=== PATIENT | female | born 1940 | race Caucasian/White ===

== ENCOUNTER 2018-01-15 11:09 | Observation (INO) | payer MEDICARE ==
[2018-01-15] MEDS ORDERED: BABY ASPIRIN 81 MG CHEW PO ONE (11:20)
[2018-01-15] MEDS ORDERED: BABY ASPIRIN 81 MG CHEW ONE (11:28)
[2018-01-15] MEDS ORDERED: Sodium Chloride 0.9% 1000 ML 1,000 ML ONE (11:28)
[2018-01-15] MEDS ORDERED: Sodium Chloride 0.9% 1000 ML 1,000 ML IV SCH (11:30)
--- NOTE | 2018-01-15 11:31 | ERPHSYRPT ---
- History of Present Illness Time Seen by Provider: 01/15/18 11:22 Historian: patient Exam Limitations: no limitations Patient Subjective Stated Complaint: pt states she awole this morning feeling weak and having chest pain to center of chest and to back but states she has no pain now, Triage Nursing Assessment: chest clear, pt alert, resp easy, skin w/d/p.no edema noted Physician History: This is a 77-year-old white female who states she has been previously healthy other than spinal stenosis. She arrives with complaint of anterior chest pain described as dull radiating to her back symptoms since 7:00 this morning lasting 2 hours she had slight shortness of breath she has no nausea. She denies other complaints past medical history includes spinal stenosis. 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 Past surgical history includes hysterectomy. Social history patient denies tobacco alcohol or illicit drug use. Timing/Duration: today Activities at Onset: rest Quality: dullness Location: substernal Chest Pain Radiation: back Severity of Pain-Max: moderate Severity of Pain-Current: none Modifying Factors: Improves With: nothing Associated Symptoms: shortness of breath, No nausea, No vomiting, No palpitations, No heartburn, No abdominal pain, No cough, No hurts to breathe, No diaphoresis, No chills, No fever, No fatigue, No weakness, No swelling/lump in chest, No syncope, No rash, No headache, No dizziness, No edema, No back pain , No other Prior Chest Pain/Cardiac Workup: no prior chest pain Nitro Today/Relief: no nitro taken today Aspirin Treatment Today: 81 mg x 4, provided by ED Allergies/Adverse Reactions: No Known Drug Allergies Allergy (Unverified 01/15/18 11:22) Home Medications: No Reportable Medications [No Reported Medications] 01/15/18 [History] Hx Tetanus, Diphtheria Vaccination/Date Given: No Hx Influenza Vaccination/Date Given: Yes Hx Pneumococcal Vaccination/Date Given: Yes - Review of Systems Constitutional: No Fever, No Chills Eyes: No Symptoms Ears, Nose, & Throat: No Symptoms Respiratory: Dyspnea, No Cough Cardiac: Chest Pain Abdominal/Gastrointestinal: No Abdominal Pain, No Nausea, No Vomiting, No Diarrhea Genitourinary Symptoms: No Dysuria Musculoskeletal: No Back Pain, No Neck Pain Skin: No Rash Neurological: No Dizziness, No Focal Weakness, No Sensory Changes Psychological: No Symptoms Endocrine: No Symptoms All Other Systems: Reviewed and Negative - Past Medical History Pertinent Past Medical History: Yes ENT History: Other Cardiac History: Other Musculoskeletal History: Degenerative Disk Disease Other Medical History: heart mumer,bleeding behind the left eye years ago - Past Surgical History Past Surgical History: Yes Gastrointestinal: Appendectomy Female Surgical History: Hysterectomy - Social History Smoking Status: Never smoker Exposure to second hand smoke: No Drug Use: none Patient Lives Alone: No - Female History Hx Last Menstrual Period: post - Nursing Vital Signs Nursing Vital Signs: Initial Vital Signs Temperature 97.4 F 01/15/18 11:12 Pulse Rate 10 L 01/15/18 11:12 Respiratory Rate 18 01/15/18 11:12 Blood Pressure 150/80 01/15/18 11:12 O2 Sat by Pulse Oximetry 98 01/15/18 11:12 Pain Scale Pain Intensity 0 - Physical Exam General Appearance: no apparent distress, anxiety Eye Exam: PERRL/EOMI, eyes nml inspection Ears, Nose, Throat Exam: normal ENT inspection, moist mucous membranes Neck Exam: normal inspection, non-tender, supple, full range of motion Respiratory Exam: normal breath sounds, lungs clear, No respiratory distress Cardiovascular Exam: tachycardia, other (heart initially irregularily irregular) Gastrointestinal/Abdomen Exam: soft, No tenderness, No mass Back Exam: normal inspection, No CVA tenderness, No vertebral tenderness Extremity Exam: normal inspection, normal range of motion Neurologic Exam: alert, oriented x 3, cooperative, swage toolsetter II-XII nml as tested, normal mood/affect, sensation nml, No motor deficits Skin Exam: normal color, warm, dry SpO2 Interpretation: normal (98%) SpO2: 98 - Course Nursing assessment & vital signs reviewed: Yes EKG Interpreted by Me: RATE (132 bpm), A-fib, NORMAL AXIS, Other (EKG: atrial fibrillation rapid response , 132 bpm,, normal axis, no acute ST or T wave changes) - Radiology Exams Chest X-ray Interpretation: Discussed w/ radiologist (chest x-ray: Impression: Nonacute hyperinflated chest) Ordered Tests: Active Orders 24 hr Category Date Time Status Tractor Mechanic Helper STAT Care 01/15/18 11:21 Active EKG-ER Only STAT Care 01/15/18 11:20 Active EKG-ER Only STAT Care 01/15/18 11:22 Active IV Insertion STAT Care 01/15/18 11:20 Active CHEST 1 VIEW (PORTABLE) Stat Exams 01/15/18 11:21 Completed AMYLASE Stat Lab 01/15/18 11:22 Completed CBC W DIFF Stat Lab 01/15/18 11:22 Completed CMP Stat Lab 01/15/18 11:22 Completed D-DIMER QUANTITATION Stat Lab 01/15/18 11:22 Completed LIPASE Stat Lab 01/15/18 11:22 Completed PROTIME WITH INR Stat Lab 01/15/18 11:22 Completed PTT Stat Lab 01/15/18 11:22 Completed TROPONIN Q3H Lab 01/15/18 11:25 Completed TROPONIN Q3H Lab 01/15/18 14:30 Ordered TROPONIN Q3H Lab 01/15/18 17:30 Ordered TROPONIN Q3H Lab 01/15/18 20:30 Ordered TROPONIN Q3H Lab 01/15/18 23:30 Ordered Medication Summary Generic Name Dose Route Start Last Admin Trade Name Freq PRN Reason Stop Dose Admin Sodium Chloride 1,000 mls @ 100 mls/hr 01/15/18 11:30 01/15/18 11:30 Sodium Chloride 0.9% 1000 Ml IV 02/14/18 11:29 100 mls/hr .Q10H JOE Administration Discontinued Medications Generic Name Dose Route Start Last Admin Trade Name Freq PRN Reason Stop Dose Admin Aspirin 324 mg 01/15/18 11:20 01/15/18 11:30 Baby Aspirin 81 Mg Chew PO 01/15/18 11:21 324 mg STAT ONE Administration Aspirin Confirm 01/15/18 11:28 Baby Aspirin 81 Mg Chew Administered 01/15/18 11:29 Dose 324 mg .ROUTE .STK-MED ONE Lab/Rad Data: Laboratory Result Diagrams 01/15/18 11:22 01/15/18 11:22 Laboratory Results 01/15/18 01/15/18 01/15/18 Range/Units 11:25 11:22 11:22 WBC (4.0-10.5) K/mm3 RBC (4.1-5.4) M/mm3 Hgb (12.0-16.0) gm/dl Hct (35-47) % MCV (78-100) fl MCH (26-32) pg MCHC (32-36) g/dl RDW (11.5-14.0) % Plt Count (150-450) K/mm3 MPV (6-9.5) fl Gran % (36.0-66.0) % Eos # (Auto) (0-0.5) Absolute Lymphs (auto) (1.0-4.6) Absolute Monos (auto) (0.0-1.3) Lymphocytes % (24.0-44.0) % Monocytes % (0.0-12.0) % Eosinophils % (0.00-5.0) % Basophils % (0.0-0.4) % Absolute Granulocytes (1.4-6.9) Basophils # (0-0.4) PT 11.5 (9.95-12.35) SECONDS INR 0.99 (0.8-3.0) APTT 30.8 (25.3-37.0) SECONDS D-Dimer 876 H* (215-500) ng/mL Sodium 144 (137-145) mmol/L Potassium 4.1 (3.5-5.1) mmol/L Chloride 106 (98-107) mmol/L Carbon Dioxide 26 (22-30) mmol/L Anion Gap 15.6 H (5-15) MEQ/L BUN 12 (7-17) mg/dL Creatinine 0.73 (0.52-1.04) mg/dL Estimated GFR > 60.0 ML/MIN Glucose 129 H (74-106) mg/dL Calcium 10.3 H (8.4-10.2) mg/dL Total Bilirubin 0.90 (0.2-1.3) mg/dL AST 19 (14-36) U/L ALT 14 (0-35) U/L Alkaline Phosphatase 81 (38-126) U/L Troponin I < 0.012 (0.000-0.034) ng/mL Serum Total Protein 7.6 (6.3-8.2) g/dL Albumin 4.6 (3.5-5.0) g/dL Amylase 70 (30-110) U/L Lipase 110 (23-300) U/L 01/15/18 Range/Units 11:22 WBC 6.9 (4.0-10.5) K/mm3 RBC 4.74 (4.1-5.4) M/mm3 Hgb 13.9 (12.0-16.0) gm/dl Hct 41.3 (35-47) % MCV 87.1 (78-100) fl MCH 29.3 (26-32) pg MCHC 33.7 (32-36) g/dl RDW 13.2 (11.5-14.0) % Plt Count 205 (150-450) K/mm3 MPV 9.3 (6-9.5) fl Gran % 70.6 H (36.0-66.0) % Eos # (Auto) 0.16 (0-0.5) Absolute Lymphs (auto) 1.51 (1.0-4.6) Absolute Monos (auto) 0.35 (0.0-1.3) Lymphocytes % 21.9 L (24.0-44.0) % Monocytes % 5.1 (0.0-12.0) % Eosinophils % 2.3 (0.00-5.0) % Basophils % 0.1 (0.0-0.4) % Absolute Granulocytes 4.86 (1.4-6.9) Basophils # 0.01 (0-0.4) PT (9.95-12.35) SECONDS INR (0.8-3.0) APTT (25.3-37.0) SECONDS D-Dimer (215-500) ng/mL Sodium (137-145) mmol/L Potassium (3.5-5.1) mmol/L Chloride (98-107) mmol/L Carbon Dioxide (22-30) mmol/L Anion Gap (5-15) MEQ/L BUN (7-17) mg/dL Creatinine (0.52-1.04) mg/dL Estimated GFR ML/MIN Glucose (74-106) mg/dL Calcium (8.4-10.2) mg/dL Total Bilirubin (0.2-1.3) mg/dL AST (14-36) U/L ALT (0-35) U/L Alkaline Phosphatase (38-126) U/L Troponin I (0.000-0.034) ng/mL Serum Total Protein (6.3-8.2) g/dL Albumin (3.5-5.0) g/dL Amylase (30-110) U/L Lipase (23-300) U/L - Progress Progress: improved (course) Air Movement: fair Progress Note: 01/15/18 11:28 77-year-old white female arrives with complaint of anterior chest pain described as dull lasting 2 hours occurred at 7:00 this morning associated with shortness of breath he states that she woke up just not feeling well she has no nausea no vomiting. She arrives with atrial fibrillation 1 32 bpm normal axis no acute ST or T wave changes. She states she has no history of heart problems he has never had atrial fibrillation is never had an MT denies history of high blood pressure. At the end of the initial evaluation of the patient she spontaneously converted to sinus rhythm 82 bpm. Patient is ordered aspirin 324 mg by mouth she does have a history of a bleed in her left eye approximately 15 years ago she is not otherwise taking any anticoagulants patient appears to be somewhat anxious however is in no acute distress and denies any other than that which occurred at around 7:00 this morning and lasted 2 hours. Repeat EKG done at 01/15/2018 at 11:23 AM Normal sinus rhythm 82 bpm normal axis no acute ST or T wave changes are noted. Will go ahead and give patient normal saline 100 mL per hour will obtain CBC CMP troponin amylase lipase and chest x-ray. Anticipate discussion with patient's primary care physician 01/15/18 12:34 I discussed the case with Dr. Burch. Patient's patient's d-dimer is mildly elevated patient is not tachycardic at this time she she has a normal oxygen saturation patient's remainder of her labs are essentially normal troponin within normal limits chest x-ray no acute disease process noted EKG is back to normal sinus rhythm. Will plan to place patient on observation diagnosis new onset of atrial fibrillation. Chest pain. I have discussed further aspirin for this patient with Dr. Burch she would like to evaluate the patient herself and then determine whether she wants to continue this. 01/15/18 12:38 Patient did have a mild increased d-dimer 876. However she is not short of breath she has normal oxygen saturation at this time also with a normal heart rate. - Departure Time of Disposition: 12:36 Departure Disposition: Observation Clinical Impression: New onset atrial fibrillation Chest pain Qualifiers: Chest pain type: unspecified Qualified Code(s): R07.9 - Chest pain, unspecified Condition: Fair Critical Care Time: No Referrals: DELGADO BURCH [Primary Care Provider] -
[2018-01-15 11:32] LABS: BASOPHIL % 0.1 % (0.0-0.4); Basophil (Absolute #) 0.01 (0-0.4); Eosinophil % 2.3 % (0.00-5.0); Eosinophil (Absolute #) 0.16 (0-0.5); Granulocyte Absolute (ANC) 4.86 (1.4-6.9); Granulocytes % 70.6 % (36.0-66.0); Hematocrit 41.3 % (35-47); Hemoglobin 13.9 gm/dl (12.0-16.0); Lymphocyte (Absolute #) 1.51 (1.0-4.6); Lymphocytes % 21.9 % (24.0-44.0); Mean Cell Volume 87.1 fl (78-100); Mean Corpuscular Hemoglobin 29.3 pg (26-32); Mean Corpuscular Hgb Concent. 33.7 g/dl (32-36); Mean Platelet Volume 9.3 fl (6-9.5); Monocyte (Absolute #) 0.35 (0.0-1.3); Monocytes % 5.1 % (0.0-12.0); Platelet Count 205 K/mm3 (150-450); Red Blood Count 4.74 M/mm3 (4.1-5.4); Red Cell Distribution Width 13.2 % (11.5-14.0); White Blood Count 6.9 K/mm3 (4.0-10.5)
[2018-01-15 11:45] LABS: ALBUMIN 4.6 g/dL (3.5-5.0); ALKALINE PHOSPHATASE 81 U/L (38-126); AMYLASE 70 U/L (30-110); ANION GAP 15.6 MEQ/L (5-15); BLOOD UREA NITROGEN 12 mg/dL (7-17); CHLORIDE 106 mmol/L (98-107); Calcium 10.3 mg/dL (8.4-10.2); Carbon Dioxide 26 mmol/L (22-30); Creatinine 1 0.73 mg/dL (0.52-1.04); Glucose 129 mg/dL (74-106); LIPASE 110 U/L (23-300); Potassium 4.1 mmol/L (3.5-5.1); SGOT/AST 19 U/L (14-36); SGPT/ALT 14 U/L (0-35); SODIUM 144 mmol/L (137-145); Total Protein 7.6 g/dL (6.3-8.2)
[2018-01-15 11:47] LABS: INR 0.99 (0.8-3.0)
[2018-01-15 11:49] LABS: PTT 30.8 SECONDS (25.3-37.0)
--- NOTE | 2018-01-15 12:01 | XRAY ---
Indication: Chest pain. Comparison: None Portable chest hyperinflated and clear. Heart and mediastinal structures within normal limits. Bony thorax intact with mild osteopenia and minimal degenerative changes. Impression: Nonacute hyperinflated chest.
[2018-01-15] MEDS: Sodium Chloride 0.9% 1000 ML 1,000 ML IV SCH (14:01)
--- NOTE | 2018-01-15 17:50 | PCM.HP ---
History of Present Illness - Chief Complaint Chief Complaint: chest pain r/o History of Present Illness: is a 77 year old female pt of mine from [facility] who came to the ER today with weakness and chest pain. She was found to have afib with RVR and was admitted on telemetry for chest pain rule out NV. This morning when she awoke she had to lay back down due to weakness. Then she started having 3/10 substernal dull chest pressure radiating to the back, not accompanied by shortness of breath, nausea, or diaphoresis. This did not last long (pt unable to quantify how long). When she came to the ER, her HR was 134. When the ER doctor entered the exam room, the pt spontaneously converted to NSR and has been so ever since. Her d-dimer was elevated to 800 but her O2 saturation was 100% and she was not SOB with no CP so a CT chest was not done. Pt has no history of afib. In fact, her only medical history is significant for spinal stenosis (with R foot paresthesia) and an episode of bleeding into the eye several years ago (per pt, due to her extreme myopia and age). She does note that she has not been feeling well for the past 2-3 months. Currently she is feeling "fine." - Review of Systems Constitutional: Weakness Respiratory: Short Of Breath (for several months, daily, needs to take a deep breath at times. worse when lying down.) Cardiac: Chest Pain Musculoskeletal: Back Pain Neurological: Parasthesia All Other Systems: Reviewed and Negative Medications & Allergies Home Medications: Home Medication List No Reportable Medications [No Reported Medications] 01/15/18 [History Confirmed 01/15/18] Allergies/Adverse Reactions: Allergies Allergy/AdvReac Type Severity Reaction Status Date / Time No Known Drug Allergies Allergy Unverified 01/15/18 11:22 - Past Medical History Past Medical History: Yes Neurological History: No Pertinent History ENT History: Other Cardiac History: Other Respiratory History: No Pertinent History Endocrine Medical History: No Pertinent History Musculoskelatal History: Degenerative Disk Disease GI Medical History: No Pertinent History History: No Pertinent History Pyscho-Social History: No Pertinent History Reproductive Disorders: No Pertinent History Comment: heart murmur,bleeding behind the left eye years ago - Female History Hx Last Menstrual Period: post Are you now?: No - Past Surgical History Past Surgical History: Yes Neuro Surgical History: No Pertinent History Cardiac History: No Pertinent History Respiratory Surgery: No Pertinent History GI Surgical History: Appendectomy Genitourinary Surgical Hx: No Pertinent History Musculskeletal Surgical Hx: No Pertinent History Female Surgical History: Hysterectomy - Social History Smoking Status: Never smoker Exposure to second hand smoke: No Alcohol: None Drug Use: none - Physical Exam Vital Signs: Vital Signs - 24 hr Temp Pulse Pulse Resp BP Pulse Ox 01/15/18 16:00 97.7 F 78 20 136/68 98 01/15/18 13:29 97.8 F 82 20 138/66 99 01/15/18 13:23 97.8 F 82 20 138/66 99 01/15/18 12:51 66 16 152/79 98 01/15/18 12:38 98 01/15/18 11:20 134 H 18 97 01/15/18 11:12 97.4 F 76 10 L 18 150/80 98 General Appearance: no apparent distress, alert Neurologic Exam: oriented x 3, cooperative Eye Exam: eyes nml inspection Ears, Nose, Throat Exam: moist mucous membranes Neck Exam: normal inspection, non-tender, No lymphadenopathy Respiratory Exam: normal breath sounds, lungs clear, No crackles/rales, No rhonchi, No wheezing Cardiovascular Exam: regular rate/rhythm, normal heart sounds, No murmur Gastrointestinal/Abdomen Exam: soft, normal bowel sounds, No tenderness, No distention, No mass, No guarding, No rebound Back Exam: normal inspection, No rash Extremity Exam: normal inspection, No pedal edema, No swelling Skin Exam: normal color, warm, dry, No rash Results - Labs Lab/Micro Results: Lab Results-Last 24 Hours 01/15/18 01/15/18 01/15/18 Range/Units 11:22 11:22 11:22 WBC 6.9 (4.0-10.5) K/mm3 RBC 4.74 (4.1-5.4) M/mm3 Hgb 13.9 (12.0-16.0) gm/dl Hct 41.3 (35-47) % MCV 87.1 (78-100) fl MCH 29.3 (26-32) pg MCHC 33.7 (32-36) g/dl RDW 13.2 (11.5-14.0) % Plt Count 205 (150-450) K/mm3 MPV 9.3 (6-9.5) fl Gran % 70.6 H (36.0-66.0) % Eos # (Auto) 0.16 (0-0.5) Absolute Lymphs (auto) 1.51 (1.0-4.6) Absolute Monos (auto) 0.35 (0.0-1.3) Lymphocytes % 21.9 L (24.0-44.0) % Monocytes % 5.1 (0.0-12.0) % Eosinophils % 2.3 (0.00-5.0) % Basophils % 0.1 (0.0-0.4) % Absolute Granulocytes 4.86 (1.4-6.9) Basophils # 0.01 (0-0.4) PT 11.5 (9.95-12.35) SECONDS INR 0.99 (0.8-3.0) APTT 30.8 (25.3-37.0) SECONDS D-Dimer 876 H* (215-500) ng/mL Sodium 144 (137-145) mmol/L Potassium 4.1 (3.5-5.1) mmol/L Chloride 106 (98-107) mmol/L Carbon Dioxide 26 (22-30) mmol/L Anion Gap 15.6 H (5-15) MEQ/L BUN 12 (7-17) mg/dL Creatinine 0.73 (0.52-1.04) mg/dL Estimated GFR > 60.0 ML/MIN Glucose 129 H (74-106) mg/dL Calcium 10.3 H (8.4-10.2) mg/dL Total Bilirubin 0.90 (0.2-1.3) mg/dL AST 19 (14-36) U/L ALT 14 (0-35) U/L Alkaline Phosphatase 81 (38-126) U/L Troponin I (0.000-0.034) ng/mL Serum Total Protein 7.6 (6.3-8.2) g/dL Albumin 4.6 (3.5-5.0) g/dL Amylase 70 (30-110) U/L Lipase 110 (23-300) U/L 01/15/18 01/15/18 Range/Units 11:25 14:27 WBC (4.0-10.5) K/mm3 RBC (4.1-5.4) M/mm3 Hgb (12.0-16.0) gm/dl Hct (35-47) % MCV (78-100) fl MCH (26-32) pg MCHC (32-36) g/dl RDW (11.5-14.0) % Plt Count (150-450) K/mm3 MPV (6-9.5) fl Gran % (36.0-66.0) % Eos # (Auto) (0-0.5) Absolute Lymphs (auto) (1.0-4.6) Absolute Monos (auto) (0.0-1.3) Lymphocytes % (24.0-44.0) % Monocytes % (0.0-12.0) % Eosinophils % (0.00-5.0) % Basophils % (0.0-0.4) % Absolute Granulocytes (1.4-6.9) Basophils # (0-0.4) PT (9.95-12.35) SECONDS INR (0.8-3.0) APTT (25.3-37.0) SECONDS D-Dimer (215-500) ng/mL Sodium (137-145) mmol/L Potassium (3.5-5.1) mmol/L Chloride (98-107) mmol/L Carbon Dioxide (22-30) mmol/L Anion Gap (5-15) MEQ/L BUN (7-17) mg/dL Creatinine (0.52-1.04) mg/dL Estimated GFR ML/MIN Glucose (74-106) mg/dL Calcium (8.4-10.2) mg/dL Total Bilirubin (0.2-1.3) mg/dL AST (14-36) U/L ALT (0-35) U/L Alkaline Phosphatase (38-126) U/L Troponin I < 0.012 < 0.012 (0.000-0.034) ng/mL Serum Total Protein (6.3-8.2) g/dL Albumin (3.5-5.0) g/dL Amylase (30-110) U/L Lipase (23-300) U/L - Radiology Impressions Radiology Exams & Impressions: Radiology Procedures Category Date Time Status CHEST 1 VIEW (PORTABLE) Stat Exams 01/15/18 11:21 Completed Assessment/Plan (1) Chest pain Current Visit: Yes Status: Acute Qualifiers: Chest pain type: unspecified Qualified Code(s): R07.9 - Chest pain, unspecified Assessment & Plan: Troponins are negative x 2. Will complete set of troponins x5 per protocol. Code(s): R07.9 - CHEST PAIN, UNSPECIFIED (2) New onset atrial fibrillation Current Visit: Yes Status: Acute Assessment & Plan: Her [id number] score is 3, indicating the need for anticoagulation. Her HASBLED score is 1, indicating 1.02 bleeds/100 pt yrs. She did have a previous episode of bleeding into the eye, but it was not a major bleed requireing transfusion. I therefore recommended anticoagulation to her, likely with Selvin. I discussed the risk of stroke vs the risk of bleeding, along with my recommendation, with the patient. She would like to think about it. I gave her the name of the medicine under consideration in case she would like to do some research on her own. She would like to discuss this in office with me next week. I did let her know that not being anticoagulated could put her at risk for a stroke in the meantime; pt indicated that she understood that. She will need an echocardiogram next week. Code(s): I48.91 - UNSPECIFIED ATRIAL FIBRILLATION (3) Elevated d-dimer Current Visit: Yes Status: Acute Assessment & Plan: Although the d-dimer was elevated, her O2 sat has been great, her chest pain has resolved, and she has not been short of breath (aside from her once daily need to take in a big single breath that has been going on for several months). Thus, symptomatically she is not typical for a pulmonary embolus so I will not subject her to the IV contrast from a CTA. Code(s): R79.89 - OTHER SPECIFIED ABNORMAL FINDINGS OF BLOOD CHEMISTRY
[2018-01-16] MEDS: Sodium Chloride 0.9% 1000 ML 1,000 ML IV SCH
[2018-01-16 05:46] LABS: BASOPHIL % 0.2 % (0.0-0.4); Basophil (Absolute #) 0.01 (0-0.4); Eosinophil % 4.9 % (0.00-5.0); Eosinophil (Absolute #) 0.22 (0-0.5); Granulocyte Absolute (ANC) 2.27 (1.4-6.9); Granulocytes % 50.9 % (36.0-66.0); Hematocrit 34.7 % (35-47); Hemoglobin 11.6 gm/dl (12.0-16.0); Lymphocyte (Absolute #) 1.68 (1.0-4.6); Lymphocytes % 37.7 % (24.0-44.0); Mean Cell Volume 89.2 fl (78-100); Mean Corpuscular Hemoglobin 29.8 pg (26-32); Mean Corpuscular Hgb Concent. 33.4 g/dl (32-36); Mean Platelet Volume 9.4 fl (6-9.5); Monocyte (Absolute #) 0.28 (0.0-1.3); Monocytes % 6.3 % (0.0-12.0); Platelet Count 196 K/mm3 (150-450); Red Blood Count 3.89 M/mm3 (4.1-5.4); Red Cell Distribution Width 13.1 % (11.5-14.0); White Blood Count 4.5 K/mm3 (4.0-10.5)
[2018-01-16 06:03] LABS: ALBUMIN 3.6 g/dL (3.5-5.0); ALKALINE PHOSPHATASE 62 U/L (38-126); ANION GAP 9.2 MEQ/L (5-15); BLOOD UREA NITROGEN 11 mg/dL (7-17); CHLORIDE 108 mmol/L (98-107); Calcium 9.3 mg/dL (8.4-10.2); Carbon Dioxide 28 mmol/L (22-30); Creatinine 1 0.63 mg/dL (0.52-1.04); Glucose 93 mg/dL (74-106); Potassium 3.9 mmol/L (3.5-5.1); SGOT/AST 12 U/L (14-36); SGPT/ALT 8 U/L (0-35); SODIUM 142 mmol/L (137-145); Total Protein 6.2 g/dL (6.3-8.2)
[2018-01-16] MEDS ORDERED: Toprol-Xl 25MG Tablets PO SCH (10:00)
--- NOTE | 2018-01-16 11:04 | PCM.DCORD ---
- Discharge Discharge Date: 01/16/18 Disposition: Home, Self-Care Condition: Good Prescriptions: New Aspirin EC 325 mg [Ecotrin 325 MG] 325 mg PO DAILY #30 tablet.ec Instructions: Echocardiogram, Adult, Heart Healthy Diet, Atrial Fibrillation ( DC), Chest Pain (DC) Additional Instructions: Patient is to come to [facility] Radiology Dept on 01/22/18@ 8:00 a.m. for a 2-D Echo Follow up with: DELGADO LIPSCOMB [Primary Care Provider] - 1 Week (Call for appointment.) Forms: Discharge Instructions, Patient Portal Information
[2018-01-16 11:29] VITALS: BP 140/64; PULSE 58; O2SAT 96
--- NOTE | 2018-01-19 11:15 | DS ---
DISCHARGE DIAGNOSES: 1) PAROXYSMAL ATRIAL FIBRILLATION. 2) CHEST PAIN. DISCHARGE PHYSICAL EXAMINATION: VITALS: Temperature current 97.6F, temperature max 97.8F, heart rate 50, respiratory rate 17. Oxygen saturation 95% on room air. Blood pressure 117/60, weight 70.8 kg. GENERAL: The patient is walking around in her room in no acute distress. She has a cousin at her bedside. CVS: She has a regular rate and rhythm. No murmurs, gallops or rubs are appreciated. CHEST: Clear to auscultation bilaterally. No crackles or wheezes. ABDOMEN: Soft, nontender, nondistended with normal bowel sounds. EXTREMITIES: No clubbing, cyanosis or edema. SKIN: Warm, dry and intact. HOSPITAL COURSE: 1) PAROXYSMAL ATRIAL FIBRILLATION: She had an episode of atrial fibrillation in the emergency room that was documented. Dr. Burch, her primary care doctor, talked to her about anticoagulation yesterday. The patient opted to think about this and talk with Dr. Burch again as an outpatient. She was given aspirin yesterday so will plan to continue with aspirin daily. Dr. Burch has written for her to have metoprolol succinate but was not starting until this morning and that dose was never given as her heart rate was 50 and her blood pressure was the low end of normal so I have opted to not discharge her on the rate control and have her follow up with Dr. Burch. 2) CHEST PAIN: She ruled out for acute myocardial infarction with serial negative troponins. No events on telemetry. DISCHARGE MEDICATIONS: Aspirin 325 mg p.o. daily. FOLLOW UP: She is to follow up with Dr. Burch this coming week. It looks like Dr. Burch has also scheduled an echocardiogram as an outpatient.
== END 2018-01-16 12:14 | disposition home or self-care (01) ==
LOC: ED 11:09 → MED SURG 13:06
PROVIDERS: ADMIT Family Medicine; ATTEND Family Medicine
DX: R07.9 Chest pain, unspecified (principal); I48.91 Unspecified atrial fibrillation; R79.1 Abnormal coagulation profile; Z79.01 Long term (current) use of anticoagulants; Z79.899 Other long term (current) drug therapy; R79.89 Other specified abnormal findings of blood chemistry
CPT/HCPCS: 36000; 36415; 71045; 80053; 82150; 83690; 84484; 85025; 85379; 85610; 85730; 93005; 93041; 93268; 99285; A9270-GY; G0378

== ENCOUNTER 2019-02-14 09:54 | Day surgery (SDC) | payer MEDICARE ==
--- NOTE | 2019-02-14 08:41 | HP ---
DATE OF SURGERY: 02/14/2019 HISTORY OF PRESENT ILLNESS: The patient is an 78 year-old with 40 pound weight loss over the past four to five months and lack of appetite. History of polyp otherwise unremarkable. No other changes in bowel movements. Denies any current rectal bleeding. PAST MEDICAL HISTORY: Includes neuropathy, some obesity, history of osteoarthritis, some heart disease requiring a pacemaker. PAST SURGICAL HISTORY: Hysterectomy in the past. MEDICATIONS: She has been MiraLAX, Celestone, amoxicillin, metoprolol, aspirin. ALLERGIES: NKDA. FAMILY HISTORY: Diabetes. Parkinson's. SOCIAL HISTORY: No alcohol abuse. REVIEW OF SYSTEMS: Fourteen systems reviewed per admission assessment. No chest pain or palpitations other systems negative or noncontributory as above and per preadmission questionnaire. She does have history of pacemaker. PHYSICAL EXAMINATION: GENERAL: No acute distress. HEENT: Sclerae nonicteric. NECK: No JVD. CHEST: Equal excursion, nonlabored breathing. CVS: Regular rate and rhythm. ABDOMEN: Soft. No peritoneal signs. EXTREMITIES: Trace edema. NEURO: Alert, oriented, moving extremities grossly symmetrically. IMPRESSION: Weight loss of unclear etiology. She had prior colonoscopy in the past that did not show any obvious etiology. I feel she would benefit from upper endoscopy for further evaluation. General risk of bleeding or infection, risk of bowel injury or perforation possibly requiring open procedure, risk of missed or nondiagnosis or incomplete exam possibly requiring other studies or procedures. She understands and agrees to the planned procedure and will proceed with EGD with possible biopsy as an outpatient.
[~2019-02-14 09:54] MED LIST: Lactated Ringers 1,000 ML IV ONE
[2019-02-14] MEDS ORDERED: Lactated Ringers 1,000 ML IV SCH (10:00)
[2019-02-14] MEDS ORDERED: DIPRIVAN 200 MG/20 ML IV ONE (11:25)
[2019-02-14 12:53] LABS: BLOOD UREA NITROGEN 11 mg/dL (7-17)
[2019-02-14 12:59] VITALS: BP 130/58; PULSE 63
[2019-02-14 13:00] VITALS: O2SAT 100
--- NOTE | 2019-02-14 13:52 | OP ---
SURGERY DATE/TIME: 02/14/2019 1126 PREOPERATIVE DIAGNOSES: A patient with 40 pound weight loss unclear etiology. History of fairly unremarkable colonoscopy in the past year and in need for upper endoscopy for further evaluation given her weight loss and lack of appetite. POSTOPERATIVE DIAGNOSES: Some mild gastric erythema, evaluate for early gastritis. PROCEDURES: 1) EGD with cold biopsy of the small bowel to evaluate for celiac sprue. 2) Cold biopsy of the antrum to evaluate for Helicobacter pylori. 3) Cold biopsy distal esophagus to the gastroesophageal junction. 4) Random cold biopsies of esophagus to evaluate for eosinophilic esophagitis. SURGEON: Dr. William Haywood. FLAME CUTTER: Roger Xiong M.D. - Medical Student III. ANESTHESIA: MAC. ESTIMATED BLOOD LOSS: Minimal. INDICATIONS: As noted above. Risks and benefits explained in detail and not limited to and consent obtained. DESCRIPTION OF PROCEDURE AND FINDINGS: The patient is taken to the operating room. MAC anesthesia introduced. After official time out and no disagreement with planned procedure, bite block positioned. Video gastroscope easily passed down the esophagus through the patent pylorus to the junction of the second and third portion of the duodenum. Proximal duodenum was grossly unremarkable. No signs of any ulcers or masses. Cold biopsy taken to evaluate for celiac disease given her weight loss. The scope pulled back into the stomach. There was some mild gastric erythema. Whether this is a just normal variation versus early gastritis cold biopsy taken to evaluate for Helicobacter pylori. On retroflex the gastroesophageal junction snug against the scope. No signs of any large hiatal hernia. There are no signs of any ulcers, masses or other mucosal lesions in the stomach. The scope pulled back gastroesophageal junction noted about 39 cm. Z-line was fairly crisp. Given her symptom complaints however random cold biopsies taken at this margin for further evaluation. Good hemostasis noted. Otherwise in the remainder of the esophagus no obvious mucosal lesions but given her symptom complaints random cold biopsies were taken to evaluate for eosinophilic esophagitis in the esophagus. The patient tolerated the procedure well. There were no immediate complications. Findings discussed with the family out in the waiting area. As we had not found remarkable findings, will check a CT scan abdomen and pelvis for further evaluation to rule out other occult sources of her lack of appetite.
== END 2019-02-14 13:13 | disposition home or self-care (01) ==
LOC: SDC 09:54
PROVIDERS: ATTEND Surgery
DX: K29.50 Unspecified chronic gastritis without bleeding (principal); K21.0 Gastro-esophageal reflux disease with esophagitis; L53.9 Erythematous condition, unspecified; R63.4 Abnormal weight loss; R63.0 Anorexia; Z79.899 Other long term (current) drug therapy
CPT/HCPCS: 36415; 82565; 84520; 88305; 88312; 99100; J2704

== ENCOUNTER 2021-04-13 16:41 | Emergency (ER) | payer MEDICARE ==
[2021-04-13] MEDS ORDERED: Sodium Chloride 0.9% 500 ML 500 ML IV ONE ×2 (17:01→17:03)
--- NOTE | 2021-04-13 17:07 | ERPHSYRPT ---
- History of Present Illness Time Seen by Provider: 04/13/21 16:59 Source: patient Exam Limitations: no limitations Physician History: 80 years old female and in the ER with chief complaint of generalized weakness fatigue and tiredness which is going on for almost 1 month. Patient reports she was on heart medications but did not get refill and is not taking anything for almost a month. Also reports having almost 25 pounds weight loss over the course of a month. Denies any chest pain palpitations or shortness of breath. No abdominal pain nausea vomiting or diarrhea reported. Denies any focal numbness or weakness but weakness all over. Denies any headache or blurry vision. Timing/Duration: week(s), constant, gradual onset, worse Severity: moderate Associated Symptoms: loss of appetite, weakness Allergies/Adverse Reactions: No Known Drug Allergies Allergy (Verified 04/13/21 17:13) Hx Tetanus, Diphtheria Vaccination/Date Given: No Hx Influenza Vaccination/Date Given: Yes Hx Pneumococcal Vaccination/Date Given: Yes - Review of Systems Constitutional: Fatigue, Weakness Eyes: No Symptoms Ears, Nose, & Throat: No Symptoms Respiratory: No Symptoms Cardiac: No Symptoms Abdominal/Gastrointestinal: No Symptoms Genitourinary Symptoms: No Symptoms Musculoskeletal: Arthralgias Skin: No Symptoms Neurological: No Symptoms Psychological: No Symptoms Endocrine: No Symptoms Hematologic/Lymphatic: No Symptoms Immunological/Allergic: No Symptoms - Past Medical History Pertinent Past Medical History: Yes Neurological History: No Pertinent History ENT History: Other Cardiac History: Other Respiratory History: No Pertinent History Endocrine Medical History: No Pertinent History Musculoskeletal History: Degenerative Disk Disease GI Medical History: No Pertinent History History: No Pertinent History Psycho-Social History: No Pertinent History Female Reproductive Disorders: No Pertinent History Other Medical History: heart murmur,bleeding behind the left eye years ago - Past Surgical History Past Surgical History: Yes Neuro Surgical History: No Pertinent History Cardiac: Pacemaker Respiratory: No Pertinent History Gastrointestinal: Appendectomy Genitourinary: No Pertinent History Musculoskeletal: No Pertinent History Female Surgical History: Hysterectomy - Social History Smoking Status: Never smoker Exposure to second hand smoke: No Drug Use: none Patient Lives Alone: No - Nursing Vital Signs Nursing Vital Signs: Initial Vital Signs Temperature 98.4 F 04/13/21 16:56 Pulse Rate 77 04/13/21 16:56 Respiratory Rate 18 04/13/21 16:56 Blood Pressure 165/82 04/13/21 16:56 O2 Sat by Pulse Oximetry 98 04/13/21 16:56 Pain Scale Pain Intensity 0 - Physical Exam General Appearance: no apparent distress, alert Eye Exam: PERRL/EOMI, eyes nml inspection Ears, Nose, Throat Exam: normal ENT inspection, pharynx normal Neck Exam: normal inspection, supple, full range of motion Respiratory Exam: normal breath sounds, lungs clear Cardiovascular Exam: regular rate/rhythm, normal heart sounds Gastrointestinal/Abdomen Exam: soft, normal bowel sounds, No tenderness Extremity Exam: normal inspection, normal range of motion Neurologic Exam: alert, oriented x 3, cooperative, emergency department rn II-XII nml as tested, normal mood/affect, nml cerebellar function Skin Exam: normal color SpO2 Interpretation: normal SpO2: 97 O2 Delivery: Room Air - Course EKG Interpreted by Me: RATE (71), Sinus Rhythm, NORMAL AXIS, NORMAL INTERVALS, Non-specific ST Changes Ordered Tests: Active Orders 24 hr Category Date Time Status IV Insertion STAT Care 04/13/21 17:06 Active CHEST 1 VIEW (PORTABLE) Stat Exams 04/13/21 17:01 Taken CBC W DIFF Stat Lab 04/13/21 17:16 Completed CMP Stat Lab 04/13/21 17:16 Completed Lactic Acid Stat Lab 04/13/21 17:05 Completed MAGNESIUM Stat Lab 04/13/21 17:16 Completed TSH [TSH, 3RD Generation] Stat Lab 04/13/21 17:16 Completed UA W/RFX UR CULTURE Stat Lab 04/13/21 18:40 Completed Medication Summary Discontinued Medications Generic Name Dose Route Start Last Admin Trade Name Ben PRN Reason Stop Dose Admin Sodium Chloride 500 mls @ 500 mls/hr 04/13/21 17:01 04/13/21 18:05 Sodium Chloride 0.9% 500 Ml IV 04/13/21 18:00 Infused .Q1H ONE Infusion Sodium Chloride Confirm 04/13/21 17:03 Sodium Chloride 0.9% 500 Ml Administered 04/13/21 17:04 Dose 500 mls @ ud IV .STK-MED ONE Lab/Rad Data: Laboratory Result Diagrams 04/13/21 17:16 04/13/21 17:16 Laboratory Results 04/13/21 04/13/21 04/13/21 Range/Units 18:40 17:16 17:16 WBC (4.0-10.5) K/mm3 RBC (4.1-5.4) M/mm3 Hgb (12.0-16.0) gm/dl Hct (35-47) % MCV (78-100) fl MCH (26-32) pg MCHC (32-36) g/dl RDW (11.5-14.0) % Plt Count (150-450) K/mm3 MPV (7.5-11.0) fl Gran % (36.0-66.0) % Eos # (Auto) (0-0.5) Absolute Lymphs (auto) (1.0-4.6) Absolute Monos (auto) (0.0-1.3) Lymphocytes % (24.0-44.0) % Monocytes % (0.0-12.0) % Eosinophils % (0.00-5.0) % Basophils % (0.0-0.4) % Absolute Granulocytes (1.4-6.9) Basophils # (0-0.4) Sodium 138 (137-145) mmol/L Potassium 4.3 (3.5-5.1) mmol/L Chloride 102 (98-107) mmol/L Carbon Dioxide 27 (22-30) mmol/L Anion Gap 13.6 (5-15) MEQ/L BUN 17 (7-17) mg/dL Creatinine 0.74 (0.52-1.04) mg/dL Estimated GFR > 60.0 ML/MIN Glucose 124 H (74-106) mg/dL Lactic Acid (0.4-2.0) Calcium 11.1 H (8.4-10.2) mg/dL Magnesium 2.3 (1.6-2.3) mg/dL Total Bilirubin 1.10 (0.2-1.3) mg/dL AST 26 (14-36) U/L ALT 16 (0-35) U/L Alkaline Phosphatase 87 (38-126) U/L Serum Total Protein 7.8 (6.3-8.2) g/dL Albumin 4.8 (3.5-5.0) g/dL TSH 3rd Generation 1.940 (0.47-4.68) mIU/L Urine Color YELLOW (YELLOW) Urine Appearance CLEAR (CLEAR) Urine pH 7.0 (5-6) Ur Specific [place] 1.009 (1.005-1.025) Urine Protein NEGATIVE (Negative) Urine Ketones TRACE (NEGATIVE) Urine Blood NEGATIVE (0-5) Brian/ul Urine Nitrite NEGATIVE (NEGATIVE) Urine Bilirubin NEGATIVE (NEGATIVE) Urine Urobilinogen NEGATIVE (0-1) mg/dL Ur Leukocyte Esterase NEGATIVE (NEGATIVE) Urine WBC (Auto) 0-2 (0-5) /HPF Urine RBC (Auto) NONE (0-2) /HPF U Hyaline Cast (Auto) 0-2 (0-2) /LPF U Epithel Cells (Auto) NONE (FEW) /HPF Urine Bacteria (Auto) NONE (NEGATIVE) /HPF Urine Mucus (Auto) SLIGHT (NEGATIVE) /HPF Urine Culture Reflexed NO (NO) Urine Glucose NEGATIVE (NEGATIVE) mg/dL 04/13/21 04/13/21 Range/Units 17:16 17:05 WBC 7.7 (4.0-10.5) K/mm3 RBC 5.02 (4.1-5.4) M/mm3 Hgb 14.7 (12.0-16.0) gm/dl Hct 44.5 (35-47) % MCV 88.6 (78-100) fl MCH 29.3 (26-32) pg MCHC 33.0 (32-36) g/dl RDW 12.9 (11.5-14.0) % Plt Count 284 (150-450) K/mm3 MPV 9.1 (7.5-11.0) fl Gran % 71.0 H (36.0-66.0) % Eos # (Auto) 0.11 (0-0.5) Absolute Lymphs (auto) 1.58 (1.0-4.6) Absolute Monos (auto) 0.53 (0.0-1.3) Lymphocytes % 20.6 L (24.0-44.0) % Monocytes % 6.9 (0.0-12.0) % Eosinophils % 1.4 (0.00-5.0) % Basophils % 0.1 (0.0-0.4) % Absolute Granulocytes 5.43 (1.4-6.9) Basophils # 0.01 (0-0.4) Sodium (137-145) mmol/L Potassium (3.5-5.1) mmol/L Chloride (98-107) mmol/L Carbon Dioxide (22-30) mmol/L Anion Gap (5-15) MEQ/L BUN (7-17) mg/dL Creatinine (0.52-1.04) mg/dL Estimated GFR ML/MIN Glucose (74-106) mg/dL Lactic Acid 1.2 (0.4-2.0) Calcium (8.4-10.2) mg/dL Magnesium (1.6-2.3) mg/dL Total Bilirubin (0.2-1.3) mg/dL AST (14-36) U/L ALT (0-35) U/L Alkaline Phosphatase (38-126) U/L Serum Total Protein (6.3-8.2) g/dL Albumin (3.5-5.0) g/dL TSH 3rd Generation (0.47-4.68) mIU/L Urine Color (YELLOW) Urine Appearance (CLEAR) Urine pH (5-6) Ur Specific [place] (1.005-1.025) Urine Protein (Negative) Urine Ketones (NEGATIVE) Urine Blood (0-5) Brian/ul Urine Nitrite (NEGATIVE) Urine Bilirubin (NEGATIVE) Urine Urobilinogen (0-1) mg/dL Ur Leukocyte Esterase (NEGATIVE) Urine WBC (Auto) (0-5) /HPF Urine RBC (Auto) (0-2) /HPF U Hyaline Cast (Auto) (0-2) /LPF U Epithel Cells (Auto) (FEW) /HPF Urine Bacteria (Auto) (NEGATIVE) /HPF Urine Mucus (Auto) (NEGATIVE) /HPF Urine Culture Reflexed (NO) Urine Glucose (NEGATIVE) mg/dL - Progress Progress: improved Progress Note: 04/13/21 19:15 80 years old is evaluated for generalized weakness fatigue and tiredness. Nonfocal neuro exam. Broad work-up is done which is grossly unremarkable except for some elevated potassium which could be secondary to dehydration versus abnormal PTH which can cause symptoms of generalized weakness and fatigue as well.. I have given her IV fluids, on reevaluation feeling better. Patient has not been taking her routine medications for almost a month and does not remember exactly what she takes. She is counseled about medication compliance and she would get medication filled tomorrow. Counseled about hydration, discussed signs symptoms of worsening needing return to ER which he seems understanding. Stable for discharge. Counseled pt/family regarding: lab results, diagnosis, need for follow-up, rad results - Departure Departure Disposition: Home Clinical Impression: Generalized weakness, Hypercalcemia, Noncompliance with medication regimen Condition: Stable Critical Care Time: No Referrals: DELGADO CARUSO [Primary Care Provider] - (Call in 2 days for reevaluation.) Instructions: Hypercalcemia (DC), Generalized Weakness (DC) Additional Instructions: Drink plenty of fluids. Restart taking your medications as recommended by your primary care and excel specialist. Follow-up with primary care for reevaluation early next week. Return to ER for worsening symptoms of generalized weakness fatigue or tiredness.
[2021-04-13 17:20] LABS: Absolute Neutrophil Ct (ANC) 5.43 (1.4-6.9); BASOPHIL % 0.1 % (0.0-0.4); Basophil (Absolute #) 0.01 (0-0.4); Eosinophil % 1.4 % (0.00-5.0); Eosinophil (Absolute #) 0.11 (0-0.5); Hematocrit 44.5 % (35-47); Hemoglobin 14.7 gm/dl (12.0-16.0); Lymphocyte (Absolute #) 1.58 (1.0-4.6); Lymphocytes % 20.6 % (24.0-44.0); Mean Cell Volume 88.6 fl (78-100); Mean Corpuscular Hemoglobin 29.3 pg (26-32); Mean Platelet Volume 9.1 fl (7.5-11.0); Monocyte (Absolute #) 0.53 (0.0-1.3); Monocytes % 6.9 % (0.0-12.0); Platelet Count 284 K/mm3 (150-450); Red Blood Count 5.02 M/mm3 (4.1-5.4); Red Cell Distribution Width 12.9 % (11.5-14.0); White Blood Count 7.7 K/mm3 (4.0-10.5)
[2021-04-13 17:30] LABS: ALBUMIN 4.8 g/dL (3.5-5.0); ALKALINE PHOSPHATASE 87 U/L (38-126); ANION GAP 13.6 MEQ/L (5-15); BLOOD UREA NITROGEN 17 mg/dL (7-17); CHLORIDE 102 mmol/L (98-107); Calcium 11.1 mg/dL (8.4-10.2); Carbon Dioxide 27 mmol/L (22-30); Creatinine 1 0.74 mg/dL (0.52-1.04); EST GLOMERULAR FILTRATION RATE > 60.0 ML/MIN; Glucose 124 mg/dL (74-106); MAGNESIUM 2.3 mg/dL (1.6-2.3); Potassium 4.3 mmol/L (3.5-5.1); SGOT/AST 26 U/L (14-36); SGPT/ALT 16 U/L (0-35); SODIUM 138 mmol/L (137-145); Total Protein 7.8 g/dL (6.3-8.2)
[2021-04-13 18:50] LABS: Appearance CLEAR (CLEAR); Bilirubin NEGATIVE (NEGATIVE); Blood NEGATIVE Ery/ul (0-5); Glucose NEGATIVE (NEGATIVE); Hyaline Casts 0-2 /LPF (0-2); Ketones TRACE (NEGATIVE); Leukocyte Esterase NEGATIVE (NEGATIVE); Mucus SLIGHT /HPF (NEGATIVE); Nitrite NEGATIVE (NEGATIVE); Protein,Urine Dip NEGATIVE (Negative); Specific Gravity 1.009 (1.005-1.025); Urobilinogen NEGATIVE mg/dL (0-1); WBC 0-2 /HPF (0-5)
[2021-04-13 19:11] VITALS: BP 157/79; PULSE 64
[2021-04-13 19:18] VITALS: O2SAT 97
--- NOTE | 2021-04-13 22:21 | XRAY ---
Indication: General weakness. Comparison: September 09, 2018. Portable chest remains hyperinflated and clear. Heart not enlarged with new left dual-lead pacemaker. Bony thorax intact again with mild osteopenia and degenerative changes. Impression: Continued nonacute hyperinflated chest with chronic features.
== END 2021-04-13 19:29 | disposition home or self-care (01) ==
LOC: ED 16:41
DX: R53.1 Weakness (principal); E83.52 Hypercalcemia; Z91.14 Patient's other noncompliance with medication regimen
CPT/HCPCS: 36000; 36415; 71045; 80053; 81001; 83605; 83735; 84443; 85025; 96360; 99284

== ENCOUNTER 2021-09-07 21:48 | Emergency (ER) | payer MEDICARE ==
[2021-09-07] MEDS ORDERED: Sodium Chloride 0.9% 1000 ML 1,000 ML IV STA (22:30)
[2021-09-07 22:32] VITALS: O2SAT 98
--- NOTE | 2021-09-07 22:45 | ERPHSYRPT ---
- History of Present Illness Time Seen by Provider: 09/07/21 22:10 Source: patient Exam Limitations: no limitations Patient Subjective Stated Complaint: per pt's family, pt has been having hallucinations. states she called them and Triage Nursing Assessment: pt alert and oriented, answers questions approp. pt states she has been having hallucinations since she was diagnosed with parkinsons. states she usually knows when she is hallucinating. pupils equal and reactive. strength equal bilat. pt up with assist of 1, unsteady at times. skin warm and dry. Physician History: This is an 81-year-old white female patient of Dr. Justen Martinez who presents to the emergency department by her family. The patient has significant Parkinson's disease and she has had intermittent episodes of hallucinations as you can see in Parkinson's disease. However, recently it seems to the patient that it is becoming more frequent. According to the patient's [id number], they have not been told that the patient is experiencing hallucinations and they were very worried today because she was obviously hallucinating to them. She is seeing things that are not there. There are no new medications. She did not suffer head injury. Patient denies headache. She denies chest pain. She denies shortness of breath. She denies abdominal pain. There are no new medications. Timing/Duration: intermittent, worse Severity: mild Character of Deficits: none (To moderate) Deficits: no difficulties Baseline/Normal Cognition: alert oriented x 3 Current Cognition: alert oriented x 3 Baseline Gait: walks w/o assistance Associated Symptoms: denies symptoms Allergies/Adverse Reactions: No Known Drug Allergies Allergy (Verified 09/07/21 22:30) Home Medications: Carbidopa/Levodopa [Carbidopa-Levo ER 25-100 Tab] 1 each PO TID 09/07/21 [History] Isosorbide Mononitrate 30 mg [Imdur 30 MG] 30 mg PO DAILY 09/07/21 [History] Hx Tetanus, Diphtheria Vaccination/Date Given: No Hx Influenza Vaccination/Date Given: Yes Hx Pneumococcal Vaccination/Date Given: Yes Immunizations Up to Date: No Travel Risk - International Travel Have you traveled outside of the country in past 3 weeks: No - Coronavirus Screening Are you exhibiting any of the following symptoms?: No Close contact with a COVID-19 positive Pt in past 14-21 Days: No - Vaccine Status Have you recieved a Covid-19 vaccination: Yes Development Rep: Moderna - Vaccination Dates Date of 2cond Vaccination (if applicable): Aug 2020 Comment: booster done - Review of Systems Constitutional: No Symptoms Eyes: No Symptoms Ears, Nose, & Throat: No Symptoms Respiratory: No Symptoms Cardiac: No Symptoms Abdominal/Gastrointestinal: No Symptoms Genitourinary Symptoms: No Symptoms Musculoskeletal: No Symptoms Skin: No Symptoms Neurological: Other (Visual hallucinations and Parkinson's patient) Psychological: Hallucinations (Visual. Patient has Parkinson's disease) Endocrine: No Symptoms Hematologic/Lymphatic: No Symptoms Immunological/Allergic: No Symptoms All Other Systems: Reviewed and Negative - Past Medical History Pertinent Past Medical History: Yes Neurological History: Other ENT History: Other Cardiac History: Other Respiratory History: No Pertinent History Endocrine Medical History: No Pertinent History Musculoskeletal History: Degenerative Disk Disease GI Medical History: No Pertinent History History: No Pertinent History Psycho-Social History: No Pertinent History Female Reproductive Disorders: No Pertinent History Other Medical History: heart murmur,bleeding behind the left eye years ago, parkinsons, pacemaker - Past Surgical History Past Surgical History: Yes Neuro Surgical History: No Pertinent History Cardiac: Pacemaker Respiratory: No Pertinent History Gastrointestinal: Appendectomy Genitourinary: No Pertinent History Musculoskeletal: No Pertinent History Female Surgical History: Hysterectomy - Social History Smoking Status: Never smoker Exposure to second hand smoke: No Drug Use: none Patient Lives Alone: No - Nursing Vital Signs Nursing Vital Signs: Initial Vital Signs Temperature 98.5 F 09/07/21 22:03 Pulse Rate 74 09/07/21 22:03 Respiratory Rate 16 09/07/21 22:03 Blood Pressure 152/76 09/07/21 22:03 O2 Sat by Pulse Oximetry 98 09/07/21 22:03 Pain Scale Pain Intensity 0 - Teri Coma Scale Best Eye Response ([place]): (4) open spontaneously Best Verbal Response (Teri): (5) oriented Best Motor Response ([place]): (6) obeys commands [place] Total: 15 - Physical Exam General Appearance: no apparent distress, alert, anxiety Eye Exam: bilateral eye: normal inspection, PERRL, EOMI Ears, Nose, Throat Exam: normal ENT inspection, moist mucous membranes Neck Exam: normal inspection, non-tender, supple, full range of motion Respiratory: normal breath sounds, lungs clear, airway intact, No chest ten derness, No respiratory distress Cardiovascular: regular rate/rhythm, normal heart sounds, normal peripheral pulses Gastrointestinal: soft, normal bowel sounds, No tenderness Pelvic Exam: not done Rectal Exam: not done Back Exam: normal inspection, normal range of motion, No CVA tenderness, No vertebral tenderness Extremity Exam: normal inspection, normal range of motion, pelvis stable Mental Status: alert, oriented x 3, 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 Exam: normal hearing, normal speech, PERRL, tongue midline Coordination/Gait: normal finger to nose Motor/Sensory: no motor deficit, no sensory deficit, no pronator drift Skin Exam: normal color, warm, dry SpO2 Interpretation: normal SpO2: 98 O2 Delivery: Room Air - Course Nursing assessment & vital signs reviewed: Yes Ordered Tests: Active Orders 24 hr Category Date Time Status IV Insertion STAT Care 09/07/21 22:30 Active HEAD WITHOUT CONTRAST [CT] Stat Exams 09/07/21 22:31 Taken CBC W DIFF Stat Lab 09/07/21 22:44 Completed CMP Stat Lab 09/07/21 22:44 Completed UA W/RFX UR CULTURE Stat Lab 09/07/21 22:37 Completed Urine Triage Profile Stat Lab 09/07/21 22:37 Completed Medication Summary Generic Name Dose Route Start Last Admin Trade Name Freq PRN Reason Stop Dose Admin Sodium Chloride 1,000 mls @ 999 mls/hr 09/07/21 22:30 09/07/21 23:10 Sodium Chloride 0.9% 1000 Ml IV 09/07/21 23:30 999 mls/hr .Q1H1M STA Administration Discontinued Medications Generic Name Dose Route Start Last Admin Trade Name Freq PRN Reason Stop Dose Admin Sodium Chloride Confirm 09/07/21 23:07 Sodium Chloride 0.9% 1000 Ml Administered 09/07/21 23:08 Dose 1,000 mls @ ud .ROUTE .STK-MED ONE Lab/Rad Data: Laboratory Result Diagrams 09/07/21 22:44 09/07/21 22:44 Laboratory Results 09/07/21 09/07/21 09/07/21 Range/Units 22:44 22:44 22:37 WBC 7.5 (4.0-10.5) K/mm3 RBC 4.39 (4.1-5.4) M/mm3 Hgb 13.0 (12.0-16.0) gm/dl Hct 39.3 (35-47) % MCV 89.5 (78-100) fl MCH 29.6 (26-32) pg MCHC 33.1 (32-36) g/dl RDW 12.8 (11.5-14.0) % Plt Count 232 (150-450) K/mm3 MPV 9.1 (7.5-11.0) fl Gran % 73.5 H (36.0-66.0) % Eos # (Auto) 0.17 (0-0.5) Absolute Lymphs (auto) 1.20 (1.0-4.6) Absolute Monos (auto) 0.59 (0.0-1.3) Lymphocytes % 16.0 L (24.0-44.0) % Monocytes % 7.9 (0.0-12.0) % Eosinophils % 2.3 (0.00-5.0) % Basophils % 0.3 (0.0-0.4) % Absolute Granulocytes 5.50 (1.4-6.9) Basophils # 0.02 (0-0.4) Sodium 137 (137-145) mmol/L Potassium 4.1 (3.5-5.1) mmol/L Chloride 100 (98-107) mmol/L Carbon Dioxide 29 (22-30) mmol/L Anion Gap 12.7 (5-15) MEQ/L BUN 18 H (7-17) mg/dL Creatinine 0.70 (0.52-1.04) mg/dL Estimated GFR > 60.0 ML/MIN Glucose 115 H (74-106) mg/dL Calcium 10.9 H (8.4-10.2) mg/dL Total Bilirubin 1.20 (0.2-1.3) mg/dL AST 22 (14-36) U/L ALT 5 (0-35) U/L Alkaline Phosphatase 84 (38-126) U/L Serum Total Protein 7.2 (6.3-8.2) g/dL Albumin 4.4 (3.5-5.0) g/dL Urine Color (YELLOW) Urine Appearance (CLEAR) Urine pH (5-6) Ur Specific [place] (1.005-1.025) Urine Protein (Negative) Urine Ketones (NEGATIVE) Urine Blood (0-5) Brian/ul Urine Nitrite (NEGATIVE) Urine Bilirubin (NEGATIVE) Urine Urobilinogen (0-1) mg/dL Ur Leukocyte Esterase (NEGATIVE) Urine WBC (Auto) (0-5) /HPF Urine RBC (Auto) (0-2) /HPF U Epithel Cells (Auto) (FEW) /HPF Urine Bacteria (Auto) (NEGATIVE) /HPF Urine Culture Reflexed (NO) Urine Glucose (NEGATIVE) mg/dL Urine Opiates Level NEGATIVE (NEGATIVE) Ur Methadone NEGATIVE (NEGATIVE) Urine Barbiturates NEGATIVE (NEGATIVE) Ur Phencyclidine (PCP) NEGATIVE (NEGATIVE) Urine Amphetamine NEGATIVE (NEGATIVE) U Benzodiazepine Level NEGATIVE (NEGATIVE) Urine Cocaine NEGATIVE (NEGATIVE) Urine Marijuana (THC) NEGATIVE (NEGATIVE) 09/07/21 Range/Units 22:37 WBC (4.0-10.5) K/mm3 RBC (4.1-5.4) M/mm3 Hgb (12.0-16.0) gm/dl Hct (35-47) % MCV (78-100) fl MCH (26-32) pg MCHC (32-36) g/dl RDW (11.5-14.0) % Plt Count (150-450) K/mm3 MPV (7.5-11.0) fl Gran % (36.0-66.0) % Eos # (Auto) (0-0.5) Absolute Lymphs (auto) (1.0-4.6) Absolute Monos (auto) (0.0-1.3) Lymphocytes % (24.0-44.0) % Monocytes % (0.0-12.0) % Eosinophils % (0.00-5.0) % Basophils % (0.0-0.4) % Absolute Granulocytes (1.4-6.9) Basophils # (0-0.4) Sodium (137-145) mmol/L Potassium (3.5-5.1) mmol/L Chloride (98-107) mmol/L Carbon Dioxide (22-30) mmol/L Anion Gap (5-15) MEQ/L BUN (7-17) mg/dL Creatinine (0.52-1.04) mg/dL Estimated GFR ML/MIN Glucose (74-106) mg/dL Calcium (8.4-10.2) mg/dL Total Bilirubin (0.2-1.3) mg/dL AST (14-36) U/L ALT (0-35) U/L Alkaline Phosphatase (38-126) U/L Serum Total Protein (6.3-8.2) g/dL Albumin (3.5-5.0) g/dL Urine Color YELLOW (YELLOW) Urine Appearance CLEAR (CLEAR) Urine pH 6.0 (5-6) Ur Specific [place] 1.016 (1.005-1.025) Urine Protein NEGATIVE (Negative) Urine Ketones TRACE (NEGATIVE) Urine Blood NEGATIVE (0-5) Brian/ul Urine Nitrite NEGATIVE (NEGATIVE) Urine Bilirubin NEGATIVE (NEGATIVE) Urine Urobilinogen NEGATIVE (0-1) mg/dL Ur Leukocyte Esterase NEGATIVE (NEGATIVE) Urine WBC (Auto) 0-2 (0-5) /HPF Urine RBC (Auto) NONE (0-2) /HPF U Epithel Cells (Auto) NONE (FEW) /HPF Urine Bacteria (Auto) NONE SEEN (NEGATIVE) /HPF Urine Culture Reflexed NO (NO) Urine Glucose NEGATIVE (NEGATIVE) mg/dL Urine Opiates Level (NEGATIVE) Ur Methadone (NEGATIVE) Urine Barbiturates (NEGATIVE) Ur Phencyclidine (PCP) (NEGATIVE) Urine Amphetamine (NEGATIVE) U Benzodiazepine Level (NEGATIVE) Urine Cocaine (NEGATIVE) Urine Marijuana (THC) (NEGATIVE) - Progress Progress: improved Progress Note: 09/07/21 23:27 CAT scan of the head without contrast shows chronic changes and no evidence of any acute intracranial abnormality. Counseled pt/family regarding: lab results, diagnosis, need for follow-up, rad results - Departure Departure Disposition: Home Clinical Impression: Hallucination, visual, Parkinson disease, symptomatic Condition: Stable Critical Care Time: No Referrals: DELGADO CARUSO [Primary Care Provider] - Follow up/PCP as directed Additional Instructions: Plenty of fluids. Take your medication as prescribed. Follow-up with your primary prescribing physician and neurologist as an outpatient to discuss these hallucinations and social issues.
[2021-09-07 22:48] LABS: Basophil (Absolute #) 0.02 (0-0.4); Eosinophil % 2.3 % (0.00-5.0); Eosinophil (Absolute #) 0.17 (0-0.5); Hematocrit 39.3 % (35-47); Mean Cell Volume 89.5 fl (78-100); Mean Corpuscular Hemoglobin 29.6 pg (26-32); Mean Corpuscular Hgb Concent. 33.1 g/dl (32-36); Mean Platelet Volume 9.1 fl (7.5-11.0); Monocyte (Absolute #) 0.59 (0.0-1.3); Monocytes % 7.9 % (0.0-12.0); Neutrophil % 73.5 % (36.0-66.0); Platelet Count 232 K/mm3 (150-450); Red Blood Count 4.39 M/mm3 (4.1-5.4); Red Cell Distribution Width 12.8 % (11.5-14.0); White Blood Count 7.5 K/mm3 (4.0-10.5)
[2021-09-07 23:05] LABS: Appearance CLEAR (CLEAR); Bilirubin NEGATIVE (NEGATIVE); Blood NEGATIVE Ery/ul (0-5); Glucose NEGATIVE (NEGATIVE); Ketones TRACE (NEGATIVE); Leukocyte Esterase NEGATIVE (NEGATIVE); Nitrite NEGATIVE (NEGATIVE); Protein,Urine Dip NEGATIVE (Negative); Specific Gravity 1.016 (1.005-1.025); Urobilinogen NEGATIVE mg/dL (0-1); WBC 0-2 /HPF (0-5)
[2021-09-07 23:07] LABS: ALBUMIN 4.4 g/dL (3.5-5.0); ALKALINE PHOSPHATASE 84 U/L (38-126); ANION GAP 12.7 MEQ/L (5-15); BLOOD UREA NITROGEN 18 mg/dL (7-17); CHLORIDE 100 mmol/L (98-107); Calcium 10.9 mg/dL (8.4-10.2); Carbon Dioxide 29 mmol/L (22-30); EST GLOMERULAR FILTRATION RATE > 60.0 ML/MIN; Glucose 115 mg/dL (74-106); Potassium 4.1 mmol/L (3.5-5.1); SGOT/AST 22 U/L (14-36); SODIUM 137 mmol/L (137-145); Total Protein 7.2 g/dL (6.3-8.2)
[2021-09-07] MEDS ORDERED: Sodium Chloride 0.9% 1000 ML 1,000 ML ONE (23:07)
[2021-09-07 23:14] LABS: SGPT/ALT 5 U/L (0-35)
[2021-09-07 23:14] LABS: Bacteria NONE SEEN /HPF (NEGATIVE)
[2021-09-07 23:18] LABS: Amphetamine,Urine NEGATIVE (NEGATIVE); Barbiturate,Urine NEGATIVE (NEGATIVE); Benzodiazepine,Urine NEGATIVE (NEGATIVE); Cocaine,Urine NEGATIVE (NEGATIVE); Methadone,Urine NEGATIVE (NEGATIVE); Opiate,Urine NEGATIVE (NEGATIVE); PCP,Urine NEGATIVE (NEGATIVE); THC,Urine NEGATIVE (NEGATIVE)
[2021-09-08 00:17] VITALS: BP 145/74; PULSE 71
--- NOTE | 2021-09-08 08:38 | XRAY ---
Indication: Hallucinations. History of Parkinson's disease. Multiple contiguous axial images obtained through the head without contrast. Comparison: None Age-appropriate global atrophy and minimal periventricular degenerative micro-ischemia bilaterally. No acute intracranial hemorrhage, abnormal extra-axial fluid collection, or mass effect. Fourth ventricle is midline without hydrocephalus. [place]-white matter differentiation preserved. Bony calvarium intact with incidental hyperostosis frontalis interna. Visualized paranasal sinuses and mastoid air cells are clear. Impression: Nonacute senile brain. Comment: Preliminary interpretation made by [facility]. No critical discrepancy.
== END 2021-09-08 01:07 | disposition home or self-care (01) ==
LOC: ED 21:48
DX: R44.1 Visual hallucinations (principal); G20 Parkinson's disease; Z79.899 Other long term (current) drug therapy
CPT/HCPCS: 36000; 36415; 70450; 80053; 80307; 81001; 85025; 99284

== ENCOUNTER 2021-09-08 18:25 | Emergency (ER) | payer MEDICARE ==
--- NOTE | 2021-09-08 18:45 | ERPHSYRPT ---
- History of Present Illness Historian: patient, family Timing/Duration: today Abdominal Pain Onset Location: generalized abdomen Severity of Pain-Max: mild Severity of Pain-Current: mild Associated Symptoms: other (yrinary retention) Hx Tetanus, Diphtheria Vaccination/Date Given: No Hx Influenza Vaccination/Date Given: Yes Hx Pneumococcal Vaccination/Date Given: Yes <DENA REYES - Last Filed: 09/08/21 18:47> <DEBO FOREMAN - Last Filed: 09/08/21 21:07> - History of Present Illness Time Seen by Provider: 09/08/21 18:43 Physician History: Patient is 81-year-old female with significant past medical history of Parkinson's disease was in the emergency room last night with the same complaint of abdominal pain and unable to urinate. Patient underwent extensive investigation last night and when the catheter was placed in patient was able to void to colored urine. Patient urinalysis was unremarkable. Patient CT head was unremarkable. Patient other labs were unremarkable so patient was sent home. Since patient went home patient has not urinated at all and her abdomen started getting distended so she was brought into the emergency room. Patient also has not eaten anything and she is now hallucinating more and more. (DENA REYES) Allergies/Adverse Reactions: No Known Drug Allergies Allergy (Verified 09/08/21 18:44) Home Medications: Carbidopa/Levodopa [Carbidopa-Levo ER 25-100 Tab] 1 each PO TID 09/07/21 [History] Isosorbide Mononitrate 30 mg [Imdur 30 MG] 30 mg PO DAILY 09/07/21 [History] Travel Risk - Vaccine Status Have you recieved a Covid-19 vaccination: Yes Continuity Writer: Moderna - Vaccination Dates Date of 2cond Vaccination (if applicable): Aug 2020 Comment: booster done <DENA REYES - Last Filed: 09/08/21 18:47> - Review of Systems Constitutional: No Fever, No Chills Eyes: No Symptoms Ears, Nose, & Throat: No Symptoms Respiratory: No Cough, No Dyspnea Cardiac: No Chest Pain, No Edema, No Syncope Abdominal/Gastrointestinal: Abdominal Pain, Appetite Changes, No Nausea, No Vomiting, No Diarrhea Genitourinary Symptoms: Urinary Retention, No Dysuria Musculoskeletal: No Back Pain, No Neck Pain Skin: No Rash Neurological: No Dizziness, No Focal Weakness, No Sensory Changes Psychological: No Symptoms, Hallucinations Endocrine: No Symptoms All Other Systems: Reviewed and Negative <ERIC,DENA - Last Filed: 09/08/21 18:47> - Past Medical History Pertinent Past Medical History: Yes Neurological History: No Pertinent History ENT History: Other Cardiac History: Other Respiratory History: No Pertinent History Endocrine Medical History: No Pertinent History Musculoskeletal History: Degenerative Disk Disease GI Medical History: No Pertinent History History: No Pertinent History Psycho-Social History: No Pertinent History Female Reproductive Disorders: No Pertinent History Other Medical History: heart murmur,bleeding behind the left eye years ago - Past Surgical History Past Surgical History: Yes Neuro Surgical History: No Pertinent History Cardiac: Pacemaker Respiratory: No Pertinent History Gastrointestinal: Appendectomy Genitourinary: No Pertinent History Musculoskeletal: No Pertinent History Female Surgical History: Hysterectomy - Social History Smoking Status: Never smoker Exposure to second hand smoke: No Drug Use: none Patient Lives Alone: No <ERIC,DENA - Last Filed: 09/08/21 18:47> - Physical Exam General Appearance: no apparent distress, alert Eye Exam: PERRL/EOMI, eyes nml inspection Ears, Nose, Throat Exam: normal ENT inspection, pharynx normal, moist mucous membranes Neck Exam: normal inspection, non-tender, supple, full range of motion Respiratory Exam: normal breath sounds, lungs clear, No respiratory distress Cardiovascular Exam: regular rate/rhythm, normal heart sounds Gastrointestinal/Abdomen Exam: soft, normal bowel sounds, distention, No tenderness, No mass Pelvic Exam: not done Back Exam: normal inspection, normal range of motion, No CVA tenderness, No vertebral tenderness Extremity Exam: normal inspection, normal range of motion, pelvis stable Neurologic Exam: alert, oriented x 3, cooperative, normal mood/affect, nml cerebellar function, sensation nml, No motor deficits Skin Exam: normal color, warm, dry <ERIC,DENA - Last Filed: 09/08/21 18:47> - Nursing Vital Signs Nursing Vital Signs: Initial Vital Signs Temperature 98 F 09/08/21 18:26 Pulse Rate 69 09/08/21 18:26 Respiratory Rate 18 09/08/21 18:26 Blood Pressure 120/66 09/08/21 18:26 O2 Sat by Pulse Oximetry 97 02/20/22 18:26 Pain Scale Pain Intensity 0 - Course Nursing assessment & vital signs reviewed: Yes <ERIC,DENA - Last Filed: 09/08/21 18:47> Ordered Tests: Active Orders 24 hr Category Date Time Status Catheter-Elma Hillman STAT Care 09/08/21 18:41 Active ABDOMEN AND PELVIS W/0 CONTRAS [CT] Stat Exams 09/08/21 19:03 Taken CULTURE,URINE Stat Lab 09/08/21 19:47 Received UA W/RFX UR CULTURE Stat Lab 09/08/21 19:47 Completed Medication Summary Discontinued Medications Generic Name Dose Route Start Last Admin Trade Name Freq PRN Reason Stop Dose Admin Ondansetron HCl 4 mg 09/08/21 19:03 09/08/21 19:26 Zofran 4 Mg/Udtablet Orally Disintegrating PO 09/08/21 19:04 4 mg STAT ONE Administration Ondansetron HCl Confirm 09/08/21 19:16 Zofran 4 Mg/Udtablet Orally Disintegrating Administered 09/08/21 19:17 Dose 4 mg .ROUTE .STK-MED ONE Lab/Rad Data: Laboratory Results 09/08/21 Range/Units 19:47 Urine Color YELLOW (YELLOW) Urine Appearance CLEAR (CLEAR) Urine pH 5.0 (5-6) Ur Specific [place] 1.013 (1.005-1.025) Urine Protein NEGATIVE (Negative) Urine Ketones TRACE (NEGATIVE) Urine Blood NEGATIVE (0-5) Brian/ul Urine Nitrite NEGATIVE (NEGATIVE) Urine Bilirubin NEGATIVE (NEGATIVE) Urine Urobilinogen NEGATIVE (0-1) mg/dL Ur Leukocyte Esterase NEGATIVE (NEGATIVE) Urine WBC (Auto) 3-5 (0-5) /HPF Urine RBC (Auto) NONE (0-2) /HPF U Epithel Cells (Auto) NONE (FEW) /HPF Urine Bacteria (Auto) NONE SEEN (NEGATIVE) /HPF Calcium Oxalate Crystal 0-2 (NEGATIVE) /HPF Urine Mucus (Auto) SLIGHT (NEGATIVE) /HPF Urine Culture Reflexed NO (NO) Urine Glucose NEGATIVE (NEGATIVE) mg/dL - Progress Progress: improved Counseled pt/family regarding: lab results, diagnosis, need for follow-up, rad results <DEBO FOREMAN - Last Filed: 09/08/21 21:07> - Progress Progress Note: 09/08/21 19:05 I evaluated this patient last night in the emergency department. She had refused to go home with a Hillman catheter in place and returns with urinary ret ention. We will repeat place the Hillman catheter and she will go home with the Hillman catheter in place. She also complains of left-sided abdominal pain and therefore we will perform a CAT scan of the abdomen pelvis and check a urinalysis. 09/08/21 19:37 CAT scan of the abdomen pelvis without contrast final report is pending. However, it is obvious that the patient has rectal stool. We will perform a fleets enema. 09/08/21 21:06 CAT scan of the abdomen and pelvis final report from radiology shows picture consistent with stool in the rectosigmoid colon. There are no emergent findings noted. (DEBO FOREMAN) <DENA REYES - Last Filed: 09/08/21 18:47> - Departure Departure Disposition: Home Critical Care Time: No <DEBO FOREMAN - Last Filed: 09/08/21 21:07> - Departure Clinical Impression: Urinary retention, Constipation Condition: Stable Referrals: DELGADO CARUSO [Primary Care Provider] - Follow up/PCP as directed Additional Instructions: Drink plenty of fluids. Follow-up with urologist for further evaluation and management. Call your primary care physician tomorrow to discuss bowel hygiene and social issues including the possibility of assisted placement. Call your neurologist tomorrow for further evaluation and management. Use [id number] MiraLAX as instructed on the bottle. In addition, may drink rapidly a bottle of magnesium citrate tomorrow morning and then 1 hour later give yourself an [id number] fleets enema.
[2021-09-08] MEDS ORDERED: ZOFRAN ODT 4 MG PO ONE (19:03)
[2021-09-08] MEDS ORDERED: ZOFRAN ODT 4 MG ONE (19:16)
[2021-09-08 20:33] LABS: Appearance CLEAR (CLEAR); Bacteria NONE SEEN /HPF (NEGATIVE); Bilirubin NEGATIVE (NEGATIVE); Blood NEGATIVE Ery/ul (0-5); Calcium Oxalate Crystals 0-2 /HPF (NEGATIVE); Glucose NEGATIVE (NEGATIVE); Ketones TRACE (NEGATIVE); Leukocyte Esterase NEGATIVE (NEGATIVE); Mucus SLIGHT /HPF (NEGATIVE); Nitrite NEGATIVE (NEGATIVE); Protein,Urine Dip NEGATIVE (Negative); Specific Gravity 1.013 (1.005-1.025); Urobilinogen NEGATIVE mg/dL (0-1)
[2021-09-09 00:16] VITALS: BP 135/65; PULSE 64; O2SAT 99
--- NOTE | 2021-09-09 08:50 | XRAY ---
Indication: Left abdomen/pelvic pain. Constipation 1 week. Multiple contiguous axial images obtained through the abdomen and pelvis without contrast. Comparison: March 03, 2019. Lung bases remain clear. Heart remains enlarged again with small pericardial effusion and pacer leads. Images through the abdomen degraded by respiration artifact. Noncontrasted stomach and bowel loops are nonobstructed. Increasing moderate diffuse scattered colonic fecal debris with new moderate rectal impaction. Again reported appendectomy and hysterectomy. Gallbladder not seen presumed contracted. No free fluid/air. Previous renal cysts not seen on today's noncontrast exam. Remaining liver, pancreas, spleen, adrenal glands, kidneys, ureters, and bladder are unremarkable for noncontrast exam. Stable moderate scattered aortoiliac calcifications without AAA. Osseous structures intact again with osteopenia, mild/moderate multilevel degenerative spondylosis, moderate/advanced bilateral hip degenerative arthropathy, and small left acetabulum cyst. Impression: 1. Respiration artifact. 2. Worsening fecal stasis with new rectal impaction. 3. Again cardiomegaly with pericardial effusion and chronic bony findings. Comment: Preliminary interpretation made by [facility]. No critical discrepancy.
== END 2021-09-08 23:41 | disposition home or self-care (01) ==
LOC: ED 18:25
DX: R33.9 Retention of urine, unspecified (principal); K59.00 Constipation, unspecified; R10.12 Left upper quadrant pain; R10.32 Left lower quadrant pain; G20 Parkinson's disease; Z79.899 Other long term (current) drug therapy; R44.3 Hallucinations, unspecified
CPT/HCPCS: 51702; 74176; 81001; 87086; 99284; Q0162

== ENCOUNTER 2021-09-09 12:21 | Observation (INO) | payer MEDICARE ==
[2021-09-09 13:28] LABS: INFLUENZA A NEGATIVE (NEGATIVE); INFLUENZA B NEGATIVE (NEGATIVE); RESPIRATORY SYNCTIAL VIRUS NEGATIVE (Negative); SARS-CoV-2 Xpert Express NEGATIVE (NEGATIVE)
[2021-09-09] MEDS: Toprol-Xl 25MG Tablets PO SCH (15:55)
[2021-09-09] MEDS: Imdur 30 MG PO SCH (16:06)
[2021-09-09] MEDS ORDERED: Dulcolax 10 MG SUPP PR ONE (17:31)
[2021-09-09] MEDS: Lactated Ringers 1,000 ML IV SCH (17:48)
--- NOTE | 2021-09-09 18:34 | PCM.HP ---
History of Present Illness - Chief Complaint Chief Complaint: hallucinations /ams History of Present Illness: is a 81 year old female pt with Parkinson's and chronic constipation who was admitted directly from home when her family complained she was confused and having hallucinations. Pt is oriented to person, place and time (knows the month and year). She had been to the ER twice this weekend; per pt she was unable to urinate well and turns out she was having worsening constipation. She remembers having manual disimpaction and an enema without much relief. Her son spoke with the RN and the pt was apparently seeing people and thought that at 8:30 at night she saw daylight out the ER window (also, no windows in ER). Pt admits to having hallucinations but says neurology told her 50% of the people with Parkinson's have hallucinations. She is mainly concerned about her constipation. - Review of Systems Abdominal/Gastrointestinal: Abdominal Pain (resolved), Constipation Genitourinary Symptoms: Hesitancy, Urinary Retention Psychological: Anxiety (about her health) Medications & Allergies Home Medications: Home Medication List Carbidopa/Levodopa [Carbidopa-Levo ER 25-100 Tab] 1 each PO TID 09/07/21 [History Confirmed 09/09/21] Isosorbide Mononitrate 30 mg [Imdur 30 MG] 30 mg PO DAILY 09/07/21 [History Confirmed 09/09/21] Metoprolol Succinate 25 mg Xl* [Toprol-Xl 25MG Tablets] 25 mg PO DAILY 09/09/21 [History Confirmed 09/09/21] Allergies/Adverse Reactions: Allergies Allergy/AdvReac Type Severity Reaction Status Date / Time No Known Drug Allergies Allergy Verified 09/08/21 18:44 - Past Medical History Past Medical History: Yes Neurological History: No Pertinent History ENT History: Other Cardiac History: Other Respiratory History: No Pertinent History Endocrine Medical History: No Pertinent History Musculoskelatal History: Degenerative Disk Disease GI Medical History: No Pertinent History History: No Pertinent History Pyscho-Social History: No Pertinent History Reproductive Disorders: No Pertinent History Comment: heart murmur,bleeding behind the left eye years ago - Female History Are you now?: No - Past Surgical History Past Surgical History: Yes Neuro Surgical History: No Pertinent History Cardiac History: Pacemaker Respiratory Surgery: No Pertinent History GI Surgical History: Appendectomy Genitourinary Surgical Hx: No Pertinent History Musculskeletal Surgical Hx: No Pertinent History Female Surgical History: Hysterectomy - Social History Smoking Status: Never smoker Exposure to second hand smoke: No Alcohol: None Drug Use: none - Physical Exam Vital Signs: Vital Signs - 24 hr Temp Pulse Resp BP 09/09/21 13:13 97.9 F 72 20 107/54 General Appearance: no apparent distress, alert, thin Neurologic Exam: oriented x 3, cooperative Eye Exam: eyes nml inspection Ears, Nose, Throat Exam: moist mucous membranes Neck Exam: normal inspection Respiratory Exam: normal breath sounds, lungs clear Cardiovascular Exam: regular rate/rhythm, normal heart sounds, No murmur Gastrointestinal/Abdomen Exam: soft, normal bowel sounds, distention, No tenderness, No mass, No guarding, No rebound Back Exam: normal inspection, No rash Extremity Exam: No pedal edema, No swelling Skin Exam: normal color, warm, dry, No rash Results - Labs Lab/Micro Results: Lab Results-Last 24 Hours 09/09/21 Range/Units 12:40 Influenza Type A Ag NEGATIVE (NEGATIVE) Influenza Type B Ag NEGATIVE (NEGATIVE) RSV (PCR) NEGATIVE (Negative) SARS-CoV-2 (PCR) NEGATIVE (NEGATIVE) Assessment/Plan (1) AMS (altered mental status) Current Visit: Yes Status: Resolved Qualifiers: Altered mental status type: disorientation Qualified Code(s): R41.0 - Disorientation, unspecified Code(s): R41.82 - ALTERED MENTAL STATUS, UNSPECIFIED (2) Hallucination, visual Current Visit: Yes Status: Chronic Code(s): R44.1 - VISUAL HALLUCINATIONS (3) Parkinson disease, symptomatic Current Visit: Yes Status: Chronic Code(s): G20 - PARKINSON'S DISEASE (4) Constipation Current Visit: No Status: Chronic Qualifiers: Constipation type: slow transit constipation Qualified Code(s): K59.01 - Slow transit constipation Code(s): K59.00 - CONSTIPATION, UNSPECIFIED (5) Generalized weakness Current Visit: No Status: Acute Assessment & Plan: PT to consult Code(s): R53.1 - WEAKNESS (6) Noncompliance with medication regimen Current Visit: No Status: Chronic Assessment & Plan: could be the root of her issues; family did a med count at the end of the month and pt had 36/90 pills left. Code(s): Z91.14 - PATIENT'S OTHER NONCOMPLIANCE WITH MEDICATION REGIMEN
[2021-09-09] MEDS: SENOKOT 8.6 MG PO SCH (20:57)
[2021-09-09] MEDS: Sinemet 25/100 MG PO SCH (20:57)
[2021-09-09] MEDS ORDERED: NON-FORMULARY ITEM (Carbidopa/Levodopa [Carbidopa-Levo Er 25-100 Tab] 1 EACH Tablet.Er) PO SCH (22:00)
[2021-09-10 05:36] LABS: Basophil (Absolute #) 0.01 (0-0.4); Eosinophil % 4.3 % (0.00-5.0); Eosinophil (Absolute #) 0.23 (0-0.5); Hematocrit 32.5 % (35-47); Hemoglobin 10.5 gm/dl (12.0-16.0); Lymphocyte (Absolute #) 1.61 (1.0-4.6); Lymphocytes % 30.1 % (24.0-44.0); Mean Cell Volume 92.1 fl (78-100); Mean Corpuscular Hemoglobin 29.7 pg (26-32); Mean Corpuscular Hgb Concent. 32.3 g/dl (32-36); Mean Platelet Volume 9.5 fl (7.5-11.0); Monocyte (Absolute #) 0.39 (0.0-1.3); Monocytes % 7.3 % (0.0-12.0); Neutrophil % 58.1 % (36.0-66.0); Platelet Count 207 K/mm3 (150-450); Red Blood Count 3.53 M/mm3 (4.1-5.4); White Blood Count 5.3 K/mm3 (4.0-10.5)
[2021-09-10 05:47] LABS: BLOOD UREA NITROGEN 10 mg/dL (7-17); CHLORIDE 104 mmol/L (98-107); Calcium 9.1 mg/dL (8.4-10.2); Carbon Dioxide 29 mmol/L (22-30); Creatinine 1 0.55 mg/dL (0.52-1.04); EST GLOMERULAR FILTRATION RATE > 60.0 ML/MIN; Glucose 89 mg/dL (74-106); Potassium 3.6 mmol/L (3.5-5.1); SODIUM 137 mmol/L (137-145)
[2021-09-10] MEDS: Imdur 30 MG PO SCH (10:02)
[2021-09-10] MEDS: Lactated Ringers 1,000 ML IV SCH ×2 (10:02→21:15)
[2021-09-10] MEDS: Toprol-Xl 25MG Tablets PO SCH (10:02)
[2021-09-10] MEDS: SENOKOT 8.6 MG PO SCH ×2 (10:02→21:14)
[2021-09-10] MEDS: Sinemet 25/100 MG PO SCH ×3 (10:02→21:14)
--- NOTE | 2021-09-10 16:54 | PCM.NOTE ---
Date and Time: 09/10/21 1650 Subjective Assessment: Late entry for 09/10/21 approx 0815. Pt feels tired. Did have large BM yesterday. Would like to get up out of bed. Pt still has verde, was placed in ER due to urinary retention which pt thought was related to constipation. - Review of Systems Constitutional: No Fever Abdominal/Gastrointestinal: Constipation, No Vomiting Objective Exam General Appearance: no apparent distress, alert Neurologic Exam: oriented x 3, disoriented (oriented to time but not place) Skin Exam: normal color, warm, dry, No rash Eye Exam: eyes nml inspection Ears, Nose, Throat Exam: moist mucous membranes Neck Exam: normal inspection Respiratory Exam: normal breath sounds, lungs clear, No crackles/rales, No rhonchi, No wheezing Cardiovascular Exam: regular rate/rhythm, normal heart sounds, No murmur Gastrointestinal/Abdomen Exam: soft, normal bowel sounds, No tenderness, No distention, No mass, No guarding, No rebound Extremity Exam: normal inspection, No pedal edema, No swelling Back Exam: normal inspection, No rash OBJECTIVE DATA Vital Signs: Vital Signs - 24 hr Temp Pulse Resp BP Pulse Ox 09/10/21 12:00 96.6 F 60 16 125/58 97 09/10/21 07:32 96.9 F 61 14 123/57 96 09/10/21 04:00 96.3 F 62 17 119/59 97 09/10/21 00:00 96.8 F 68 16 116/59 97 09/09/21 19:08 98.4 F 77 16 116/57 98 Pain Assessment - Last Documented Pain Intensity 0 Intake and Output: Intake & Output 09/08/21 09/09/21 09/10/21 09/11/21 11:59 11:59 11:59 11:59 Intake Total 1604 420 Output Total 900 1000 Balance 704 -580 Weight 56.5 kg Lab Results: Lab Results-Last 24 Hours 09/10/21 09/10/21 Range/Units 05:20 05:20 WBC 5.3 (4.0-10.5) K/mm3 RBC 3.53 L (4.1-5.4) M/mm3 Hgb 10.5 L (12.0-16.0) gm/dl Hct 32.5 L (35-47) % MCV 92.1 (78-100) fl MCH 29.7 (26-32) pg MCHC 32.3 (32-36) g/dl RDW 13.0 (11.5-14.0) % Plt Count 207 (150-450) K/mm3 MPV 9.5 (7.5-11.0) fl Gran % 58.1 (36.0-66.0) % Eos # (Auto) 0.23 (0-0.5) Absolute Lymphs (auto) 1.61 (1.0-4.6) Absolute Monos (auto) 0.39 (0.0-1.3) Lymphocytes % 30.1 (24.0-44.0) % Monocytes % 7.3 (0.0-12.0) % Eosinophils % 4.3 (0.00-5.0) % Basophils % 0.2 (0.0-0.4) % Absolute Granulocytes 3.10 (1.4-6.9) Basophils # 0.01 (0-0.4) Sodium 137 (137-145) mmol/L Potassium 3.6 (3.5-5.1) mmol/L Chloride 104 (98-107) mmol/L Carbon Dioxide 29 (22-30) mmol/L Anion Gap 8.0 (5-15) MEQ/L BUN 10 (7-17) mg/dL Creatinine 0.55 (0.52-1.04) mg/dL Estimated GFR > 60.0 ML/MIN Glucose 89 (74-106) mg/dL Calcium 9.1 (8.4-10.2) mg/dL Multi-Disciplinary Progress Notes: Multi-Disciplinary Progress Notes 09/10/21 15:35 Case Management Note by Neena Coyle REFERRAL SENT TO [facility] FOR FOLLOW UP AFTER DC WELL Initialized on 09/10/21 15:35 - END OF NOTE 09/10/21 15:34 Case Management Note by Neena Coyle WHEN SPEAKING WITH PATIENT- PATIENT VERY A&O, ANSWERS ALL QUESTIONS APPROPRIATELY. SHE STATES SHE KNOWS WHEN SHE IS HALLUCINATING AT HOME AND STATES SHE IS AWARE IT IS NOT REAL. SHE STATED IT IS PARK OF HER PARKINSONS. WE DISCUSSED A REHAB STAY- PATIENT DOES NOT WISH TO GO TO [place] AT THIS TIME Initialized on 09/10/21 15:34 - END OF NOTE 09/10/21 15:33 Case Management Note by Neena Coyle ORDER FOR ROLLATOR SENT IN [facility] [place] TO BE DELIVERED TO HOME Initialized on 09/10/21 15:33 - END OF NOTE 09/10/21 15:25 Case Management Note by Neena Coyle AFTER MUCH INVESTIGATION- PATIENT USES [facility]. THEY DO NOT/CAN NOT SUPPLY A NURSE OR AID FOR PATIENT. FAMILY FEELS PATIENT NEEDS MORE SUPPORT AT HOME. I DISCUSSED WITH SON CHANGING FROM CURRENT COMPANY TO [facility] SO SHE CAN GET HELP FROM MULTIPLE DISCIPLINES. HE UNDERSTANDS THIS WOULD BE MORE SUPPORT. I ALSO NOTIFIED HIM THAT THEY COULD HELP THEM WITH AREA 7 REFERRAL AND FIGURING OUT ADDITIONAL HELP NEEDED. THEY AGREED THIS WOULD BE BEST. THEY WOULD LIKE REFERRAL SENT TO [facility]. S/W PATIENT EXPLAINED THE ABOVE- SHE IS AGREEABLE TO TRY NEW COMPANY. SHE PLANS TO DC HOME WITH THE NEW [facility]. ROLLATOR ORDERED TO BE DELIVERED TO HER HOME. REFERRAL FAXED AT THIS TIME Initialized on 09/10/21 15:25 - END OF NOTE Assessment/Plan (1) AMS (altered mental status) Current Visit: Yes Status: Chronic Qualifiers: Altered mental status type: disorientation Qualified Code(s): R41.0 - Disorientation, unspecified Assessment & Plan: some disorientation this morning. Code(s): R41.82 - ALTERED MENTAL STATUS, UNSPECIFIED (2) Hallucination, visual Current Visit: Yes Status: Chronic Assessment & Plan: Likely due to Parkinson's. If they are frequent/severe enough, may impact patient's functioning to the point where she cannot live alone. Appreciate discharge planning/PT/RN observations and input. Code(s): R44.1 - VISUAL HALLUCINATIONS (3) Parkinson disease, symptomatic Current Visit: Yes Status: Chronic Code(s): G20 - PARKINSON'S DISEASE (4) Constipation Current Visit: No Status: Chronic Qualifiers: Constipation type: slow transit constipation Qualified Code(s): K59.01 - Slow transit constipation Code(s): K59.00 - CONSTIPATION, UNSPECIFIED (5) Generalized weakness Current Visit: No Status: Acute Code(s): R53.1 - WEAKNESS (6) Noncompliance with medication regimen Current Visit: No Status: Chronic Code(s): Z91.14 - PATIENT'S OTHER NONCOMPLIANCE WITH MEDICATION REGIMEN (7) Urinary retention Current Visit: No Status: Acute Assessment & Plan: try removing verde catheter today, see if tolerated by pt. Code(s): R33.9 - RETENTION OF URINE, UNSPECIFIED
[2021-09-11 06:57] VITALS: BP 139/81; PULSE 71; O2SAT 98
--- NOTE | 2021-09-11 08:58 | PCM.DS ---
Discharge Summary Date of Admission: 09/09/21 12:21 Admitting Physician: DELGADO CARUSO Primary Care Provider: DELGADO CARUSO Allergies Allergies No Known Drug Allergies Allergy (Verified 09/08/21 18:44) Hospital Summary - Hospital Course Hospital Course: Pt is an 81 yo female pt of mine with Parkinson's Disease who was admitted directly with AMS, hallucinations, urinary retention, constipation, and fatigue. She had been to the ER twice over the weekend and a verde catheter was placed; she had an enema without much relief. Once admitted, she had dulcolax and an enema with good results; verde catheter was subsequently removed and she has been urinating. Urine culture done in ER is negative. She has been alert and oriented during most of her stay. She ambulated 100 feet without device or assistance. She will be going home with [facility]. Hallucinations are felt to be related to her Parkinson's disease. - Vitals & Intake/Output Vital Signs: Vital Signs Temperature 97.8 F 09/11/21 06:56 Pulse Rate 71 09/11/21 06:56 Respiratory Rate 16 09/11/21 06:56 Blood Pressure 139/81 09/11/21 06:56 O2 Sat by Pulse Oximetry 98 09/11/21 06:56 Intake & Output: Intake & Output 09/08/21 09/09/21 09/10/21 09/11/21 11:59 11:59 11:59 11:59 Intake Total 1604 2091 Output Total 900 3450 Balance 704 -1359 Weight 56.5 kg - Lab Result Diagrams: 09/10/21 05:20 09/10/21 05:20 - Procedures and Test Procedures and Tests throughout Hospitalization: Therapy Orders & Screens 09/09/21 12:52 PT Eval & Treat ( Order) ONCE Reason for Eval:: AMS, falling at home Diagnosis: Hallucinations, AMS, Parkinson's Discharge Exam General Appearance: no apparent distress, alert Neurologic Exam: oriented x 3, cooperative Eye Exam: eyes nml inspection Ears, Nose, Throat Exam: moist mucous membranes Neck Exam: normal inspection Respiratory Exam: normal breath sounds, lungs clear, No crackles/rales, No rhonchi, No wheezing Cardiovascular Exam: regular rate/rhythm, normal heart sounds, No murmur Gastrointestinal/Abdomen Exam: soft, normal bowel sounds, No tenderness, No d istention, No mass, No guarding, No rebound Extremity Exam: normal inspection, No pedal edema, No swelling Skin Exam: normal color, warm, dry, No rash Final Diagnosis/Problem List - Final Discharge Diagnosis/Problem (1) AMS (altered mental status) Current Visit: Yes Status: Chronic Assessment & Plan: Intermittent, related to PD and hallucinations. Code(s): R41.82 - ALTERED MENTAL STATUS, UNSPECIFIED (2) Hallucination, visual Current Visit: Yes Status: Chronic Code(s): R44.1 - VISUAL HALLUCINATIONS (3) Parkinson disease, symptomatic Current Visit: Yes Status: Chronic Code(s): G20 - PARKINSON'S DISEASE (4) Constipation Current Visit: No Status: Chronic Assessment & Plan: Send pt home on senna. dulcolax suppository prn. Code(s): K59.00 - CONSTIPATION, UNSPECIFIED (5) Generalized weakness Current Visit: No Status: Chronic Code(s): R53.1 - WEAKNESS (6) Noncompliance with medication regimen Current Visit: No Status: Chronic Assessment & Plan: Family aware. Code(s): Z91.14 - PATIENT'S OTHER NONCOMPLIANCE WITH MEDICATION REGIMEN (7) Urinary retention Current Visit: No Status: Resolved Code(s): R33.9 - RETENTION OF URINE, UNSPECIFIED - Discharge Disposition: Home, Self-Care Condition: Stable Prescriptions: New Senna 8.6 mg [Senokot 8.6 mg] 8.6 mg PO BID tablet Continue Isosorbide Mononitrate 30 mg [Imdur 30 MG] 30 mg PO DAILY Carbidopa/Levodopa [Carbidopa-Levo ER 25-100 Tab] 1 each PO TID Metoprolol Succinate 25 mg Xl* [Toprol-Xl 25MG Tablets] 25 mg PO DAILY Instructions: Constipation, Adult (DC), Parkinson Disease (DC), Urinary Retention (DC) Additional Instructions: [facility] WILL BE CONTACTING YOU TO ARRANGE A VISIT. THEIR PHONE NUMBER IS [phone]. ROLLATOR WAS ORDERED THRU [facility]. THEY WILL DELIVER TO YOUR HOME. THEIR PHONE NUMBER IS [phone]. A REFERRAL WAS SENT TO [facility]. THEY WILL REACH OUT TO TALK TO YOU . THEIR PHONE NUMBER IS [phone]. Follow up with: DELGADO CARUSO [Primary Care Provider] - 09/17/21 2:30 pm Forms: Discharge Instructions
[2021-09-11] MEDS: Sinemet 25/100 MG PO SCH (09:01)
[2021-09-11] MEDS: Imdur 30 MG PO SCH (09:01)
[2021-09-11] MEDS: Toprol-Xl 25MG Tablets PO SCH (09:01)
[2021-09-11] MEDS: SENOKOT 8.6 MG PO SCH (09:01)
== END 2021-09-11 10:48 | disposition home health service (06) ==
LOC: MED SURG 12:21
PROVIDERS: ADMIT Family Medicine; ATTEND Family Medicine
DX: R41.82 Altered mental status, unspecified (principal); R44.1 Visual hallucinations; G20 Parkinson's disease; K59.00 Constipation, unspecified; R53.1 Weakness; Z91.14 Patient's other noncompliance with medication regimen; R33.9 Retention of urine, unspecified; Z79.899 Other long term (current) drug therapy; Z20.828 Contact with and (suspected) exposure to other viral communicable diseases
CPT/HCPCS: 0241U; 36415; 80048; 85025; 97161; 97530; 93268; G0378; A9270-GY

== ENCOUNTER 2022-05-20 05:45 | Emergency (ER) | payer MEDICARE ==
--- NOTE | 2022-05-20 06:36 | ERPHSYRPT ---
- History of Present Illness Historian: patient, family Exam Limitations: no limitations Patient Subjective Stated Complaint: pt states sh has been constipated for one week and is having trouble urinating Triage Nursing Assessment: pt alert and oriented. pt states pain in retum 11/26 Timing/Duration: week(s) (1) Quality: pressure Abdominal Pain Onset Location: suprapubic Pain Radiation: no radiation Severity of Pain-Max: mild Severity of Pain-Current: mild (To moderate to moderate) Associated Symptoms: other (Constipation and abdominal distention) Previous symptoms: same symptoms as today, no recent treatment Hx Tetanus, Diphtheria Vaccination/Date Given: No Hx Influenza Vaccination/Date Given: No Hx Pneumococcal Vaccination/Date Given: No Immunizations Up to Date: No <DEBO FOREMAN - Last Filed: 05/20/22 06:45> <WILLY FINE - Last Filed: 05/20/22 09:00> - History of Present Illness Time Seen by Provider: 05/20/22 06:20 Physician History: This is an 82-year-old white female patient of Dr. Justen Martinez who has a history of Parkinson's disease and presents with 1 week history of worsening constipation with some abdominal distention and difficulty urinating. She is having some suprapubic distention, pain and pressure. Patient had a similar episode in August 2021 and was found to have leukocytosis at that time, urinary tract infection and significant stool in the left colon and rectosigmoid region. Patient has not been on any bowel hygiene program since that time. Patient denies chest pain. Patient denies shortness of breath. (DEBO CALDWELL) Allergies/Adverse Reactions: No Known Drug Allergies Allergy (Verified 09/08/21 18:44) Home Medications: Carbidopa/Levodopa [Carbidopa-Levo ER 25-100 Tab] 1 each PO TID 09/07/21 [History] Isosorbide Mononitrate 30 mg [Imdur 30 MG] 30 mg PO DAILY 09/07/21 [History] Metoprolol Succinate 25 mg Xl* [Toprol-Xl 25MG Tablets] 25 mg PO DAILY 09/09/21 [History] Travel Risk - International Travel Have you traveled outside of the country in past 3 weeks: No - Coronavirus Screening Are you exhibiting any of the following symptoms?: No Close contact with a COVID-19 positive Pt in past 14-21 Days: No - Vaccine Status Have you recieved a Covid-19 vaccination: Yes Airborne Sensor Specialist: Nawafa - Vaccination Dates Date of 2cond Vaccination (if applicable): unknown <DEBO FOREMAN - Last Filed: 05/20/22 06:45> - Review of Systems Constitutional: No Symptoms Eyes: No Symptoms Ears, Nose, & Throat: No Symptoms Respiratory: No Symptoms Cardiac: No Symptoms Abdominal/Gastrointestinal: Abdominal Pain, Constipation, No Nausea, No Vomiting, No Diarrhea Genitourinary Symptoms: Urinary Retention, No Dysuria, No Frequency Musculoskeletal: No Symptoms Skin: No Symptoms Neurological: No Symptoms Psychological: No Symptoms Endocrine: No Symptoms Hematologic/Lymphatic: No Symptoms Immunological/Allergic: No Symptoms All Other Systems: Reviewed and Negative <DEBO FOREMAN - Last Filed: 05/20/22 06:45> - Past Medical History Pertinent Past Medical History: Yes Neurological History: No Pertinent History ENT History: Other Cardiac History: Other Respiratory History: No Pertinent History Endocrine Medical History: No Pertinent History Musculoskeletal History: Degenerative Disk Disease GI Medical History: No Pertinent History History: No Pertinent History Psycho-Social History: No Pertinent History Female Reproductive Disorders: No Pertinent History Other Medical History: heart murmur,bleeding behind the left eye years ago - Past Surgical History Past Surgical History: Yes Neuro Surgical History: No Pertinent History Cardiac: Pacemaker Respiratory: No Pertinent History Gastrointestinal: Appendectomy Genitourinary: No Pertinent History Musculoskeletal: No Pertinent History Female Surgical History: Hysterectomy - Social History Smoking Status: Never smoker Exposure to second hand smoke: No Drug Use: none Patient Lives Alone: No <DEBO FOREMAN - Last Filed: 05/20/22 06:45> - Physical Exam General Appearance: no apparent distress, alert, anxiety, thin Eye Exam: PERRL/EOMI, eyes nml inspection Ears, Nose, Throat Exam: normal ENT inspection, moist mucous membranes Neck Exam: normal inspection, non-tender, supple, full range of motion Respiratory Exam: normal breath sounds, lungs clear, airway intact, No chest tenderness, No respiratory distress Cardiovascular Exam: regular rate/rhythm, normal heart sounds, normal peripheral pulses Gastrointestinal/Abdomen Exam: soft, tenderness, distention (Suprapubic region), guarding (Suprapubic region to palpationmild), No rebound Pelvic Exam: not done Rectal Exam: not done Back Exam: normal inspection, normal range of motion, No CVA tenderness, No vertebral tenderness Extremity Exam: normal inspection, normal range of motion, pelvis stable Neurologic Exam: alert, oriented x 3, cooperative, accounting consultant II-XII nml as tested, normal mood/affect, nml cerebellar function, nml station & gait, sensation nml Skin Exam: normal color, warm, dry Lymphatic Exam: No adenopathy SpO2 Interpretation: normal SpO2: 98 O2 Delivery: Room Air <DEBO FOREMAN - Last Filed: 05/20/22 06:45> - Nursing Vital Signs Nursing Vital Signs: Initial Vital Signs Temperature 97.8 F 05/20/22 06:06 Pulse Rate 70 05/20/22 06:06 Respiratory Rate 18 05/20/22 06:06 Blood Pressure 184/86 05/20/22 06:06 O2 Sat by Pulse Oximetry 98 05/20/22 06:06 Pain Scale Pain Intensity 5 - Course Nursing assessment & vital signs reviewed: Yes <DEBO FOREMAN - Last Filed: 05/20/22 06:45> Ordered Tests: Active Orders 24 hr Category Date Time Status IV Insertion STAT Care 05/20/22 06:32 Active ABDOMEN AND PELVIS W/0 CONTRAS [CT] Stat Exams 05/20/22 06:32 Taken AMYLASE Stat Lab 05/20/22 07:18 Completed CBC W DIFF Stat Lab 05/20/22 07:18 Completed CMP Stat Lab 05/20/22 07:18 Completed LIPASE Stat Lab 05/20/22 07:18 Completed Lactic Acid Stat Lab 05/20/22 06:32 Completed UA W/RFX CULTURE Stat Lab 05/20/22 07:18 Completed Medication Summary Generic Name Dose Route Start Last Admin Trade Name Freq PRN Reason Stop Dose Admin Sodium Chloride 1,000 mls @ 100 mls/hr 05/20/22 06:45 05/20/22 06:52 Sodium Chloride 0.9% 1000 Ml IV 06/19/22 06:44 100 mls/hr .Q10H JOE Administration Lab/Rad Data: Laboratory Result Diagrams 05/20/22 07:18 05/20/22 07:18 Laboratory Results 05/20/22 05/20/2205/20/22 Range/Units 07:18 07:18 07:18 WBC 7.7 (4.0-10.5) x10^3/uL RBC 4.07 L (4.1-5.4) x10^6/uL Hgb 12.0 (12.0-16.0) g/dL Hct 36.6 (35-47) % MCV 89.9 (78-100) fL MCH 29.5 (26-32) pg MCHC 32.8 (32-36) g/dL RDW 12.5 (11.5-14.0) % Plt Count 221 (150-450) x10^3/uL MPV 9.1 (7.5-11.0) fL Gran % 78.4 H (36.0-66.0) % Immature Gran % (Auto) 0.4 (0.00-0.4) % Nucleat RBC Rel Count 0.0 (0.00-0.1) % Eos # (Auto) 0.19 (0-0.5) x10^3/uL Immature Gran # (Auto) 0.03 (0.00-0.03) x10^3u/L Absolute Lymphs (auto) 1.00 (1.0-4.6) x10^3/uL Absolute Monos (auto) 0.43 (0.0-1.3) x10^3/uL Absolute Nucleated RBC 0.00 (0.00-0.01) x10^3u/L Lymphocytes % 13.0 L (24.0-44.0) % Monocytes % 5.6 (0.0-12.0) % Eosinophils % 2.5 (0.00-5.0) % Basophils % 0.1 (0.0-0.4) % Absolute Granulocytes 6.05 (1.4-6.9) x10^3/uL Basophils # 0.01 (0-0.4) x10^3/uL Sodium 138 (137-145) mmol/L Potassium 3.8 (3.5-5.1) mmol/L Chloride 104 (98-107) mmol/L Carbon Dioxide 29 (22-30) mmol/L Anion Gap 8.4 (5-15) MEQ/L BUN 18 H (7-17) mg/dL Creatinine 0.62 (0.52-1.04) mg/dL Estimated GFR > 60.0 ML/MIN Glucose 111 H (74-106) mg/dL Lactic Acid (0.4-2.0) Calcium 10.0 (8.4-10.2) mg/dL Total Bilirubin 1.30 (0.2-1.3) mg/dL AST 30 (14-36) U/L ALT 9 (0-35) U/L Alkaline Phosphatase 84 (38-126) U/L Serum Total Protein 7.4 (6.3-8.2) g/dL Albumin 4.4 (3.5-5.0) g/dL Amylase 79 (30-110) U/L Lipase 64 (23-300) U/L Urinalys Dipstick Clnc MAIN LAB Urine Color YELLOW (YELLOW) Urine Appearance CLEAR (CLEAR) Urine pH 5.5 (5-6) Ur Specific [place] 1.020 (1.005-1.025) POC Urine Protein Conf NEGATIVE (Negative) Urine Ketones NEGATIVE (NEGATIVE) Urine Nitrite NEGATIVE (NEGATIVE) Urine Bilirubin NEGATIVE (NEGATIVE) Urine Urobilinogen 0.2 (0-1) mg/dL Urine Leukocytes NEGATIVE (NEGATIVE) Urine WBC (Auto) NONE (0-5) /HPF Urine RBC (Auto) NONE (0-2) /HPF U Epithel Cells (Auto) NONE (FEW) /HPF Urine Bacteria (Auto) NONE (NEGATIVE) /HPF Urine RBC NEGATIVE (0-5) Brian/ul Ur Culture Indicated? NO Urine Glucose NEGATIVE (NEGATIVE) mg/dL 05/20/22 Range/Units 06:32 WBC (4.0-10.5) x10^3/uL RBC (4.1-5.4) x10^6/uL Hgb (12.0-16.0) g/dL Hct (35-47) % MCV (78-100) fL MCH (26-32) pg MCHC (32-36) g/dL RDW (11.5-14.0) % Plt Count (150-450) x10^3/uL MPV (7.5-11.0) fL Gran % (36.0-66.0) % Immature Gran % (Auto) (0.00-0.4) % Nucleat RBC Rel Count (0.00-0.1) % Eos # (Auto) (0-0.5) x10^3/uL Immature Gran # (Auto) (0.00-0.03) x10^3u/L Absolute Lymphs (auto) (1.0-4.6) x10^3/uL Absolute Monos (auto) (0.0-1.3) x10^3/uL Absolute Nucleated RBC (0.00-0.01) x10^3u/L Lymphocytes % (24.0-44.0) % Monocytes % (0.0-12.0) % Eosinophils % (0.00-5.0) % Basophils % (0.0-0.4) % Absolute Granulocytes (1.4-6.9) x10^3/uL Basophils # (0-0.4) x10^3/uL Sodium (137-145) mmol/L Potassium (3.5-5.1) mmol/L Chloride (98-107) mmol/L Carbon Dioxide (22-30) mmol/L Anion Gap (5-15) MEQ/L BUN (7-17) mg/dL Creatinine (0.52-1.04) mg/dL Estimated GFR ML/MIN Glucose (74-106) mg/dL Lactic Acid 0.8 (0.4-2.0) Calcium (8.4-10.2) mg/dL Total Bilirubin (0.2-1.3) mg/dL AST (14-36) U/L ALT (0-35) U/L Alkaline Phosphatase (38-126) U/L Serum Total Protein (6.3-8.2) g/dL Albumin (3.5-5.0) g/dL Amylase (30-110) U/L Lipase (23-300) U/L Urinalys Dipstick Clnc Urine Color (YELLOW) Urine Appearance (CLEAR) Urine pH (5-6) Ur Specific [place] (1.005-1.025) POC Urine Protein Conf (Negative) Urine Ketones (NEGATIVE) Urine Nitrite (NEGATIVE) Urine Bilirubin (NEGATIVE) Urine Urobilinogen (0-1) mg/dL Urine Leukocytes (NEGATIVE) Urine WBC (Auto) (0-5) /HPF Urine RBC (Auto) (0-2) /HPF U Epithel Cells (Auto) (FEW) /HPF Urine Bacteria (Auto) (NEGATIVE) /HPF Urine RBC (0-5) Brian/ul Ur Culture Indicated? Urine Glucose (NEGATIVE) mg/dL - Progress Progress: improved Counseled pt/family regarding: lab results, diagnosis, rad results <DEBO FOREMAN - Last Filed: 05/20/22 06:45> <WILLY FINE - Last Filed: 05/20/22 09:00> - Progress Progress Note: 05/20/22 06:48 Transfer of care to Dr. Willy Fine at shift change. He will follow-up on the results of the studies and make final disposition (DEBO FOREMAN) 05/20/22 08:57 The nursing staff digitally disimpacted a very large rectal impaction the patient is feeling much better she is no longer in pain we are encouraging her to start back on her MiraLAX 2 doses daily increase as needed. (WILLY FINE) - Departure Departure Disposition: Home Critical Care Time: No <DEBO FOREMAN - Last Filed: 05/20/22 06:45> - Departure Departure Disposition: Home Critical Care Time: No <WILLY FINE - Last Filed: 05/20/22 09:00> - Departure Clinical Impression: Constipation, Urinary retention Condition: Stable Referrals: DELGADO CARUSO [Primary Care Provider] - Follow up/PCP as directed Prescriptions: Polyethylene Glycol 3350 17 gm [Miralax Powder 17GM PACKET] 17 gm PO BID 30 Days #60 packet
[2022-05-20] MEDS ORDERED: Sodium Chloride 0.9% 1000 ML 1,000 ML ONE (06:49)
[2022-05-20] MEDS: Sodium Chloride 0.9% 1000 ML 1,000 ML IV SCH (06:52)
[2022-05-20 07:20] LABS: Absolute Neutrophil Ct (ANC) 6.05 x10^3/uL (1.4-6.9); Basophil (Absolute #) 0.01 x10^3/uL (0-0.4); Eosinophil % 2.5 % (0.00-5.0); Eosinophil (Absolute #) 0.19 x10^3/uL (0-0.5); Hematocrit 36.6 % (35-47); Mean Cell Volume 89.9 fL (78-100); Mean Corpuscular Hemoglobin 29.5 pg (26-32); Mean Corpuscular Hgb Concent. 32.8 g/dL (32-36); Mean Platelet Volume 9.1 fL (7.5-11.0); Monocyte (Absolute #) 0.43 x10^3/uL (0.0-1.3); Monocytes % 5.6 % (0.0-12.0); Neutrophil % 78.4 % (36.0-66.0); Platelet Count 221 x10^3/uL (150-450); Red Blood Count 4.07 x10^6/uL (4.1-5.4); Red Cell Distribution Width 12.5 % (11.5-14.0); White Blood Count 7.7 x10^3/uL (4.0-10.5)
[2022-05-20 07:33] LABS: ALBUMIN 4.4 g/dL (3.5-5.0); ALKALINE PHOSPHATASE 84 U/L (38-126); AMYLASE 79 U/L (30-110); ANION GAP 8.4 MEQ/L (5-15); BLOOD UREA NITROGEN 18 mg/dL (7-17); CHLORIDE 104 mmol/L (98-107); Carbon Dioxide 29 mmol/L (22-30); Creatinine 1 0.62 mg/dL (0.52-1.04); EST GLOMERULAR FILTRATION RATE > 60.0 ML/MIN; Glucose 111 mg/dL (74-106); LIPASE 64 U/L (23-300); Potassium 3.8 mmol/L (3.5-5.1); SGOT/AST 30 U/L (14-36); SGPT/ALT 9 U/L (0-35); SODIUM 138 mmol/L (137-145); Total Protein 7.4 g/dL (6.3-8.2)
[2022-05-20 07:59] LABS: Appearance CLEAR (CLEAR); Bilirubin NEGATIVE (NEGATIVE); Glucose NEGATIVE (NEGATIVE); Ketones NEGATIVE (NEGATIVE); Nitrite NEGATIVE (NEGATIVE); Ph 5.5 (5-6); Protein,Urine Dip NEGATIVE (Negative); RBC NEGATIVE Ery/ul (0-5); Urobilinogen 0.2 mg/dL (0-1)
[2022-05-20 08:00] LABS: Dipstick done @ ? MAIN LAB; Urine Cultured Indicated? NO
[2022-05-20 09:03] VITALS: BP 176/80; PULSE 72; O2SAT 96
--- NOTE | 2022-05-20 09:15 | XRAY ---
Indication: Abdomen pain, bloating, constipation, and urinary retention. Multiple contiguous axial images obtained through the abdomen and pelvis without contrast. Comparison: July 08, 2022 Lung bases remains clear. Heart remains enlarged again with small pericardial effusion and pacer leads. Noncontrasted stomach and bowel loops nonobstructed. There is again moderate diffuse scattered colonic fecal debris throughout with recurrent significant rectal impaction. Appendectomy and hysterectomy reported. No free fluid/air. Remaining liver, gallbladder, pancreas, spleen, adrenal glands, kidneys, ureters, and bladder are unremarkable for noncontrast exam. There remains moderate scattered aortoiliac calcifications without AAA. Osseous structures intact again with osteopenia, multilevel degenerative spondylosis, bilateral hip degenerative arthropathy, and small left acetabulum bone cyst. Impression: 1. Again recurrent fecal stasis with marked rectal impaction. 2. Again cardiomegaly with pericardial effusion, arteriosclerotic disease, and chronic bony findings. Comment: Preliminary interpretation made by [facility]. No critical discrepancy.
== END 2022-05-20 09:22 | disposition home or self-care (01) ==
LOC: ED 05:45
DX: K59.00 Constipation, unspecified (principal); R33.9 Retention of urine, unspecified; Z79.899 Other long term (current) drug therapy
CPT/HCPCS: 36000; 36415; 74176; 80053; 81015; 82150; 83605; 83690; 85025; 99284

== ENCOUNTER 2022-05-21 14:36 | Observation (INO) | payer MEDICARE ==
--- NOTE | 2022-05-21 14:55 | ERPHSYRPT ---
- History of Present Illness Time Seen by Provider: 05/21/22 14:55 Historian: patient Exam Limitations: no limitations Physician History: This is an 82-year-old white female patient who has been in the emergency room department several times for abdominal pain and difficulty urinating. Patient was seen approximately 24 hours ago in our emergency department a CAT scan of the abdomen pelvis showed rectal impaction and no other significant intra- abdominal or intrapelvic finding. Her laboratory work-up including urinalysis did not show anything acute. There is no evidence of any type of infection. Patient does have a significant history of Parkinson's disease and and dementia. She has been off her Parkinson's medicine for approximately 2 to 3 days prior to this evaluation. Patient had been instructed to use MiraLAX on a daily basis to help with bowel hygiene. She has yet to start that medication to help with her constipation. Patient contacted Dr. Justen Martinez today and patient and family were concerned about an episode of hallucinations where she was concerned that the baby was watching her and she was having some urinary incontinence and diarrhea. This is her third visit in a short period of time and therefore Dr. Justen Martinez and I feel the patient should be placed in observation for further evaluation and management. Timing/Duration: other (Chronic recurrent) Abdominal Pain Onset Location: suprapubic Pain Radiation: no radiation Severity of Pain-Max: mild Severity of Pain-Current: mild Allergies/Adverse Reactions: No Known Drug Allergies Allergy (Verified 05/21/22 14:53) Home Medications: Carbidopa/Levodopa [Carbidopa-Levo ER 25-100 Tab] 1 each PO TID 09/07/21 [History] Isosorbide Mononitrate 30 mg [Imdur 30 MG] 30 mg PO DAILY 09/07/21 [ History] Metoprolol Succinate 25 mg Xl* [Toprol-Xl 25MG Tablets] 25 mg PO DAILY 09/09/21 [History] Hx Tetanus, Diphtheria Vaccination/Date Given: No Hx Influenza Vaccination/Date Given: No Hx Pneumococcal Vaccination/Date Given: No Travel Risk - International Travel Have you traveled outside of the country in past 3 weeks: No - Coronavirus Screening Are you exhibiting any of the following symptoms?: No Close contact with a COVID-19 positive Pt in past 14-21 Days: No - Vaccine Status Have you recieved a Covid-19 vaccination: Yes Biomathematician: Moderna - Vaccination Dates Date of 2cond Vaccination (if applicable): unknown - Review of Systems Constitutional: No Symptoms Eyes: No Symptoms Ears, Nose, & Throat: No Symptoms Respiratory: No Symptoms Cardiac: No Symptoms Abdominal/Gastrointestinal: Diarrhea Genitourinary Symptoms: Incontinence Musculoskeletal: No Symptoms Skin: No Symptoms Psychological: Hallucinations (Possibly secondary to her being off her medications for the last 2 to 3 days) Endocrine: No Symptoms Hematologic/Lymphatic: No Symptoms Immunological/Allergic: No Symptoms All Other Systems: Reviewed and Negative - Past Medical History Pertinent Past Medical History: Yes Neurological History: No Pertinent History ENT History: Other Cardiac History: Other Respiratory History: No Pertinent History Endocrine Medical History: No Pertinent History Musculoskeletal History: Degenerative Disk Disease GI Medical History: No Pertinent History History: No Pertinent History Psycho-Social History: No Pertinent History Female Reproductive Disorders: No Pertinent History Other Medical History: heart murmur,bleeding behind the left eye years ago - Past Surgical History Past Surgical History: Yes Neuro Surgical History: No Pertinent History Cardiac: Pacemaker Respiratory: No Pertinent History Gastrointestinal: Appendectomy Genitourinary: No Pertinent History Musculoskeletal: No Pertinent History Female Surgical History: Hysterectomy - Social History Smoking Status: Never smoker Exposure to second hand smoke: No Drug Use: none Patient Lives Alone: No - Nursing Vital Signs Nursing Vital Signs: Initial Vital Signs Temperature 97.9 F 05/21/22 14:55 Pulse Rate 74 05/21/22 14:55 Respiratory Rate 18 05/21/22 14:55 Blood Pressure 159/81 05/21/22 14:55 O2 Sat by Pulse Oximetry 98 05/21/22 14:55 Pain Scale Pain Intensity 0 - Physical Exam General Appearance: no apparent distress, alert, anxiety, thin Eye Exam: PERRL/EOMI, eyes nml inspection Ears, Nose, Throat Exam: normal ENT inspection, moist mucous membranes Neck Exam: normal inspection, non-tender, supple, full range of motion Respiratory Exam: normal breath sounds, lungs clear, airway intact, No chest tenderness, No respiratory distress Cardiovascular Exam: regular rate/rhythm, normal heart sounds, normal peripheral pulses Gastrointestinal/Abdomen Exam: soft, normal bowel sounds, No tenderness, No guarding Pelvic Exam: not done Rectal Exam: not done Back Exam: normal inspection, normal range of motion, No CVA tenderness, No vertebral tenderness Extremity Exam: normal inspection, normal range of motion, pelvis stable Neurologic Exam: alert, oriented x 3, cooperative, adjuster leader II-XII nml as tested, normal mood/affect, nml cerebellar function, nml station & gait, sensation nml Skin Exam: normal color, warm, dry Lymphatic Exam: No adenopathy SpO2 Interpretation: normal O2 Delivery: Room Air - Course Nursing assessment & vital signs reviewed: Yes Ordered Tests: Active Orders 24 hr Category Date Time Status HEAD WITHOUT CONTRAST [CT] Stat Exams 05/21/22 15:08 Completed BMP Stat Lab 05/21/22 15:45 Completed Transfer Order Routine Transfer 05/21/22 Ordered Medication Summary Generic Name Dose Route Start Last Admin Trade Name Freq PRN Reason Stop Dose Admin Carbidopa/Levodopa 1 tab 05/21/22 22:00 Carbidopa/Levodopa 25/100 1 Tab Tablet PO 06/20/22 21:59 BID JOE Lab/Rad Data: Laboratory Result Diagrams 05/21/22 15:45 Laboratory Results 05/21/22 05/21/22 05/21/22 Range/Units Unknown 15:45 15:45 Sodium 137 (137-145) mmol/L Potassium 3.9 (3.5-5.1) mmol/L Chloride 106 (98-107) mmol/L Carbon Dioxide 26 (22-30) mmol/L Anion Gap 8.8 (5-15) MEQ/L BUN 17 (7-17) mg/dL Creatinine 0.50 L (0.52-1.04) mg/dL Estimated GFR > 60.0 ML/MIN Glucose 107 H (74-106) mg/dL Calcium 9.7 (8.4-10.2) mg/dL Ammonia < 9 L (9-30) umol/L Influenza Type A Ag NEGATIVE (NEGATIVE) Influenza Type B Ag NEGATIVE (NEGATIVE) RSV (PCR) NEGATIVE (Negative) SARS-CoV-2 (PCR) NEGATIVE (NEGATIVE) - Progress Progress Note: 05/21/22 16:02 Medical decision making: Dr. Justen Martinez and I feel that the patient be best served by placing her in observation. We will provide her with intravenous fluids, soapsuds enema and start her Parkinson medication today. We agree that patient does not have to have a repeat CAT scan of the abdomen pelvis. We will check an ammonia level as well as repeat electrolytes and obtain a CAT scan of the head. 05/21/22 16:03 05/21/22 16:27 CAT scan of the head without contrast is a nonacute senile brain study Counseled pt/family regarding: lab results, diagnosis, need for follow-up - Departure Departure Disposition: Observation Clinical Impression: Diarrhea, Rectal pressure, Fecal impaction in rectum, Hallucinations, Urinary incontinence Condition: Stable Critical Care Time: No Referrals: DELGADO CARUSO [Primary Care Provider] - Follow up/PCP as directed
[2022-05-21 16:02] LABS: INFLUENZA A NEGATIVE (NEGATIVE); INFLUENZA B NEGATIVE (NEGATIVE); RESPIRATORY SYNCTIAL VIRUS NEGATIVE (Negative); SARS-CoV-2 Xpert Express NEGATIVE (NEGATIVE)
[2022-05-21 16:04] LABS: ANION GAP 8.8 MEQ/L (5-15); BLOOD UREA NITROGEN 17 mg/dL (7-17); CHLORIDE 106 mmol/L (98-107); Calcium 9.7 mg/dL (8.4-10.2); Carbon Dioxide 26 mmol/L (22-30); EST GLOMERULAR FILTRATION RATE > 60.0 ML/MIN; Glucose 107 mg/dL (74-106); Potassium 3.9 mmol/L (3.5-5.1); SODIUM 137 mmol/L (137-145)
--- NOTE | 2022-05-21 16:19 | XRAY ---
Indication: Hallucinations. History of Parkinson's disease. Multiple contiguous axial images obtained through the head without contrast. Comparison: September 07, 2021 Again age-appropriate global atrophy and minimal periventricular degenerative micro-ischemia. No acute intracranial hemorrhage, abnormal extra-axial fluid collection, or mass effect. Fourth ventricle is midline without hydrocephalus. Bony calvarium intact again with incidental hyperostosis frontalis internal. Visualized paranasal sinuses and mastoid air cells are clear. Impression: Continued nonacute senile brain.
[2022-05-21] MEDS ORDERED: TYLENOL 325 MG PO PRN (16:49)
[2022-05-21] MEDS ORDERED: Zofran 4 MG/2 ML VIAL IV PRN (16:49)
[2022-05-21] MEDS ORDERED: Sodium Chloride 0.9% 1000 ML 1,000 ML IV SCH (16:49)
[2022-05-21] MEDS ORDERED: Dulcolax 10 MG SUPP PR ONE (17:18)
[2022-05-21] MEDS: THERAGRAN MULTIVITAMIN PO SCH (17:41)
[2022-05-21] MEDS: Sinemet CR 50/200 MG PO SCH ×2 (17:41→22:41)
[2022-05-21] MEDS: Miralax Powder 17GM PACKET PO SCH (21:39)
[2022-05-21] MEDS ORDERED: NON-FORMULARY ITEM (Carbidopa/Levodopa [Carbidopa-Levo Er 25-100 Tab] 1 EACH Tablet.Er) PO SCH (22:00)
[2022-05-21] MEDS ORDERED: Sinemet 25/100 MG PO SCH (22:00)
[2022-05-22 04:01] LABS: Mucus SLIGHT /HPF (NEGATIVE); RBC 0-2 /HPF (0-2)
[2022-05-22 04:02] LABS: Appearance CLEAR (CLEAR); Bacteria NONE SEEN /HPF (NEGATIVE); Bilirubin NEGATIVE (NEGATIVE); Dipstick done @ ? MAIN LAB; Glucose NEGATIVE (NEGATIVE); Ketones NEGATIVE (NEGATIVE); Nitrite NEGATIVE (NEGATIVE); Ph 5.5 (5-6); Protein,Urine Dip NEGATIVE (Negative); RBC NEGATIVE Ery/ul (0-5); Specific Gravity >=1.030 (1.005-1.025); Urobilinogen 0.2 mg/dL (0-1)
[2022-05-22 04:03] LABS: Urine Cultured Indicated? NO
[2022-05-22 04:46] LABS: Absolute Neutrophil Ct (ANC) 3.64 x10^3/uL (1.4-6.9); Basophil (Absolute #) 0.02 x10^3/uL (0-0.4); Eosinophil % 3.6 % (0.00-5.0); Lymphocyte (Absolute #) 1.23 x10^3/uL (1.0-4.6); Lymphocytes % 22.3 % (24.0-44.0); Mean Cell Volume 90.9 fL (78-100); Mean Corpuscular Hemoglobin 29.3 pg (26-32); Mean Corpuscular Hgb Concent. 32.3 g/dL (32-36); Mean Platelet Volume 8.8 fL (7.5-11.0); Monocyte (Absolute #) 0.41 x10^3/uL (0.0-1.3); Monocytes % 7.4 % (0.0-12.0); Neutrophil % 65.9 % (36.0-66.0); Platelet Count 200 x10^3/uL (150-450); Red Blood Count 3.41 x10^6/uL (4.1-5.4); Red Cell Distribution Width 12.5 % (11.5-14.0); White Blood Count 5.5 x10^3/uL (4.0-10.5)
[2022-05-22 05:15] LABS: ALKALINE PHOSPHATASE 60 U/L (38-126); ANION GAP 3.9 MEQ/L (5-15); BLOOD UREA NITROGEN 16 mg/dL (7-17); CHLORIDE 108 mmol/L (98-107); Calcium 8.9 mg/dL (8.4-10.2); Carbon Dioxide 29 mmol/L (22-30); Creatinine 1 0.52 mg/dL (0.52-1.04); EST GLOMERULAR FILTRATION RATE > 60.0 ML/MIN; Glucose 93 mg/dL (74-106); Potassium 3.3 mmol/L (3.5-5.1); SGOT/AST 21 U/L (14-36); SGPT/ALT 8 U/L (0-35); SODIUM 137 mmol/L (137-145); Total Protein 5.5 g/dL (6.3-8.2)
[2022-05-22 07:37] VITALS: BP 143/61; PULSE 63; O2SAT 96
[2022-05-22] MEDS: Miralax Powder 17GM PACKET PO SCH (09:42)
[2022-05-22] MEDS: THERAGRAN MULTIVITAMIN PO SCH (09:43)
[2022-05-22] MEDS: Sinemet CR 50/200 MG PO SCH (09:44)
[2022-05-22] MEDS ORDERED: MULTIVIT MINERALS PO SCH (10:00)
[2022-05-22] MEDS ORDERED: Klor Con PO SCH (10:00)
[2022-05-22] MEDS ORDERED: FOLIC ACID PO SCH (10:00)
[2022-05-22] MEDS ORDERED: [UNRECOGNIZED DRUG - OTHER] PO SCH (10:00)
[2022-05-22] MEDS ORDERED: Imdur 30 MG PO SCH (10:00)
--- NOTE | 2022-05-22 11:25 | PCM.SSS ---
History of Present Illness - Chief Complaint Chief Complaint: MENTAL STATUS CHANGE, HALLUCINATIONS, RECTAL IMPACTION, URINARY INCONTINENC History of Present Illness: is a 82 year old female pt of mine from [facility] with Parkinson's disease, minimal cognitive impairment, afib, and chronic constipation who was admitted from ER with hallucinations and obstipation. She had been to the ER the day before, was treated but didn't feel like the relief was total (couldn't sit down). Was hallucinating and disoriented and family were concerned. She returned to ER, workup normal aside from constipation. She was given a rectal suppository. On the med surg floor, she was given an enema with large return of stool. This morning she is AAO x 3. She doesn't remember the events of yesterday. She is feeling well and would like to go home. At home she has a BM once weekly. Has been prescribed miralax but doesn't take it at home. - Review of Systems All Other Systems: Unable due to condition (was disoriented yesterday and can't remember) Medications & Allergies Home Medications: Home Medication List Carbidopa/Levodopa [Carbidopa-Levo ER 25-100 Tab] 1 each PO TID 09/07/21 [History Confirmed 05/21/22] Isosorbide Mononitrate 30 mg [Imdur 30 MG] 30 mg PO DAILY 09/07/21 [History Confirmed 05/21/22] Multivit-Minerals/Folic Acid [Multivitamin Gummies] 200 mcg PO DAILY 05/21/22 [History Confirmed 05/21/22] Docusate Sodium [Colace] 100 mg PO DAILY #30 cap 05/22/22 [Rx] Potassium Chloride Tab* [Klor Con] 10 meq PO DAILY #30 tablet 05/22/22 [Rx] Allergies/Adverse Reactions: Allergies Allergy/AdvReac Type Severity Reaction Status Date / Time No Known Drug Allergies Allergy Verified 05/21/22 16:59 - Past Medical History Past Medical History: Yes Neurological History: Other ENT History: Other Cardiac History: No Pertinent History Respiratory History: No Pertinent History Endocrine Medical History: No Pertinent History Musculoskelatal History: Degenerative Disk Disease GI Medical History: No Pertinent History History: No Pertinent History Pyscho-Social History: No Pertinent History Reproductive Disorders: No Pertinent History Comment: heart murmur,bleeding behind the left eye years ago, PARKINSONS - Past Surgical History Past Surgical History: Yes Neuro Surgical History: No Pertinent History Cardiac History: Pacemaker Respiratory Surgery: No Pertinent History GI Surgical History: Appendectomy Genitourinary Surgical Hx: No Pertinent History Musculskeletal Surgical Hx: No Pertinent History Female Surgical History: Hysterectomy - Social History Smoking Status: Never smoker Exposure to second hand smoke: No Alcohol: None Drug Use: none - Physical Exam Vital Signs: Vital Signs - 24 hr Temp Pulse Resp BP Pulse Ox 05/22/22 07:37 97.1 F 63 15 143/61 96 05/22/22 03:54 97.7 F 76 18 115/55 95 05/21/22 23:52 97.5 F 70 18 114/55 96 05/21/22 19:46 97.5 F 76 16 128/61 96 05/21/22 16:52 97.5 F 68 20 140/67 97 05/21/22 16:42 88 18 138/71 97 05/21/22 15:50 64 18 138/71 95 05/21/22 14:55 97.9 F 74 18 159/81 98 General Appearance: no apparent distress, alert Neurologic Exam: oriented x 3, cooperative, other (limited facies as usual) Eye Exam: eyes nml inspection Ears, Nose, Throat Exam: moist mucous membranes Neck Exam: normal inspection Respiratory Exam: normal breath sounds, lungs clear, No crackles/rales, No rhonchi, No wheezing Cardiovascular Exam: regular rate/rhythm, normal heart sounds, No murmur Gastrointestinal/Abdomen Exam: soft, normal bowel sounds, No tenderness, No distention, No mass, No guarding, No rebound Back Exam: normal inspection, No rash Extremity Exam: normal inspection, No pedal edema, No swelling Skin Exam: normal color, warm, dry, No rash Results - Labs Lab/Micro Results: Lab Results-Last 24 Hours 05/21/22 05/21/22 05/21/22 Range/Units 03:38 15:45 15:45 WBC (4.0-10.5) x10^3/uL RBC (4.1-5.4) x10^6/uL Hgb (12.0-16.0) g/dL Hct (35-47) % MCV (78-100) fL MCH (26-32) pg MCHC (32-36) g/dL RDW (11.5-14.0) % Plt Count (150-450) x10^3/uL MPV (7.5-11.0) fL Gran % (36.0-66.0) % Immature Gran % (Auto) (0.00-0.4) % Nucleat RBC Rel Count (0.00-0.1) % Eos # (Auto) (0-0.5) x10^3/uL Immature Gran # (Auto) (0.00-0.03) x10^3u/L Absolute Lymphs (auto) (1.0-4.6) x10^3/uL Absolute Monos (auto) (0.0-1.3) x10^3/uL Absolute Nucleated RBC (0.00-0.01) x10^3u/L Lymphocytes % (24.0-44.0) % Monocytes % (0.0-12.0) % Eosinophils % (0.00-5.0) % Basophils % (0.0-0.4) % Absolute Granulocytes (1.4-6.9) x10^3/uL Basophils # (0-0.4) x10^3/uL Sodium 137 (137-145) mmol/L Potassium 3.9 (3.5-5.1) mmol/L Chloride 106 (98-107) mmol/L Carbon Dioxide 26 (22-30) mmol/L Anion Gap 8.8 (5-15) MEQ/L BUN 17 (7-17) mg/dL Creatinine 0.50 L (0.52-1.04) mg/dL Estimated GFR > 60.0 ML/MIN Glucose 107 H (74-106) mg/dL Calcium 9.7 (8.4-10.2) mg/dL Total Bilirubin (0.2-1.3) mg/dL AST (14-36) U/L ALT (0-35) U/L Alkaline Phosphatase (38-126) U/L Ammonia < 9 L (9-30) umol/L Serum Total Protein (6.3-8.2) g/dL Albumin (3.5-5.0) g/dL Urinalys Dipstick Clnc MAIN LAB Urine Color DARK YELLOW (YELLOW) Urine Appearance CLEAR (CLEAR) Urine pH 5.5 (5-6) Ur Specific [place] >=1.030 A (1.005-1.025) POC Urine Protein Conf NEGATIVE (Negative) Urine Ketones NEGATIVE (NEGATIVE) Urine Nitrite NEGATIVE (NEGATIVE) Urine Bilirubin NEGATIVE (NEGATIVE) Urine Urobilinogen 0.2 (0-1) mg/dL Urine Leukocytes NEGATIVE (NEGATIVE) Urine WBC (Auto) 3-5 A (0-5) /HPF Urine RBC (Auto) 0-2 (0-2) /HPF U Epithel Cells (Auto) NONE (FEW) /HPF Urine Bacteria (Auto) NONE SEEN (NEGATIVE) /HPF Urine RBC NEGATIVE (0-5) Brian/ul Calcium Oxalate Crystal 3-5 A (NEGATIVE) /HPF Urine Mucus (Auto) SLIGHT A (NEGATIVE) /HPF Ur Culture Indicated? NO Urine Glucose NEGATIVE (NEGATIVE) mg/dL Influenza Type A Ag (NEGATIVE) Influenza Type B Ag (NEGATIVE) RSV (PCR) (Negative) SARS-CoV-2 (PCR) (NEGATIVE) 05/21/22 05/22/22 05/22/22 Range/Units Unknown 04:20 04:20 WBC 5.5 (4.0-10.5) x10^3/uL RBC 3.41 L (4.1-5.4) x10^6/uL Hgb 10.0 L (12.0-16.0) g/dL Hct 31.0 L (35-47) % MCV 90.9 (78-100) fL MCH 29.3 (26-32) pg MCHC 32.3 (32-36) g/dL RDW 12.5 (11.5-14.0) % Plt Count 200 (150-450) x10^3/uL MPV 8.8 (7.5-11.0) fL Gran % 65.9 (36.0-66.0) % Immature Gran % (Auto) 0.4 (0.00-0.4) % Nucleat RBC Rel Count 0.0 (0.00-0.1) % Eos # (Auto) 0.20 (0-0.5) x10^3/uL Immature Gran # (Auto) 0.02 (0.00-0.03) x10^3u/L Absolute Lymphs (auto) 1.23 (1.0-4.6) x10^3/uL Absolute Monos (auto) 0.41 (0.0-1.3) x10^3/uL Absolute Nucleated RBC 0.00 (0.00-0.01) x10^3u/L Lymphocytes % 22.3 L (24.0-44.0) % Monocytes % 7.4 (0.0-12.0) % Eosinophils % 3.6 (0.00-5.0) % Basophils % 0.4 (0.0-0.4) % Absolute Granulocytes 3.64 (1.4-6.9) x10^3/uL Basophils # 0.02 (0-0.4) x10^3/uL Sodium 137 (137-145) mmol/L Potassium 3.3 L (3.5-5.1) mmol/L Chloride 108 H (98-107) mmol/L Carbon Dioxide 29 (22-30) mmol/L Anion Gap 3.9 L (5-15) MEQ/L BUN 16 (7-17) mg/dL Creatinine 0.52 (0.52-1.04) mg/dL Estimated GFR > 60.0 ML/MIN Glucose 93 (74-106) mg/dL Calcium 8.9 (8.4-10.2) mg/dL Total Bilirubin 0.80 (0.2-1.3) mg/dL AST 21 (14-36) U/L ALT 8 (0-35) U/L Alkaline Phosphatase 60 (38-126) U/L Ammonia (9-30) umol/L Serum Total Protein 5.5 L (6.3-8.2) g/dL Albumin 3.0 L (3.5-5.0) g/dL Urinalys Dipstick Clnc Urine Color (YELLOW) Urine Appearance (CLEAR) Urine pH (5-6) Ur Specific [place] (1.005-1.025) POC Urine Protein Conf (Negative) Urine Ketones (NEGATIVE) Urine Nitrite (NEGATIVE) Urine Bilirubin (NEGATIVE) Urine Urobilinogen (0-1) mg/dL Urine Leukocytes (NEGATIVE) Urine WBC (Auto) (0-5) /HPF Urine RBC (Auto) (0-2) /HPF U Epithel Cells (Auto) (FEW) /HPF Urine Bacteria (Auto) (NEGATIVE) /HPF Urine RBC (0-5) Brian/ul Calcium Oxalate Crystal (NEGATIVE) /HPF Urine Mucus (Auto) (NEGATIVE) /HPF Ur Culture Indicated? Urine Glucose (NEGATIVE) mg/dL Influenza Type A Ag NEGATIVE (NEGATIVE) Influenza Type B Ag NEGATIVE (NEGATIVE) RSV (PCR) NEGATIVE (Negative) SARS-CoV-2 (PCR) NEGATIVE (NEGATIVE) - Radiology Impressions Radiology Exams & Impressions: Radiology Procedures Category Date Time Status HEAD WITHOUT CONTRAST [CT] Stat Exams 05/21/22 15:08 Completed Assessment/Plan (1) Fecal impaction in rectum Current Visit: Yes Status: Resolved Assessment & Plan: will give daily colace, I think it will improve compliance. Code(s): K56.41 - FECAL IMPACTION (2) Hallucinations Current Visit: Yes Status: Chronic Assessment & Plan: chronically, but the increased hallucinations are gone. Code(s): R44.3 - HALLUCINATIONS, UNSPECIFIED (3) AMS (altered mental status) Current Visit: No Status: Resolved Qualifiers: Altered mental status type: disorientation Qualified Code(s): R41.0 - Disorientation, unspecified Code(s): R41.82 - ALTERED MENTAL STATUS, UNSPECIFIED (4) Noncompliance with medication regimen Current Visit: No Status: Chronic Code(s): Z91.14 - PATIENT'S OTHER NONCOMPLIANCE WITH MEDICATION REGIMEN (5) Parkinson disease, symptomatic Current Visit: No Status: Chronic Code(s): G20 - PARKINSON'S DISEASE (6) Hypokalemia Current Visit: Yes Status: Acute Assessment & Plan: mild, will start 10mE daily K Code(s): E87.6 - HYPOKALEMIA Hospital Summary - Hospital Course Hospital Course: Pt is 82 yo female with Parkinson's admitted with increased hallucinations and constipation, acute on chronic. She was treated with rectal suppository and enema, with good results. This morning is AAO x3 and feeling good. Does have a mildly low potassium - will start supplement at home. RTC 1 week to f/u [facility]. - Vitals & Intake/Output Vital Signs: Vital Signs Temperature 97.1 F 05/22/22 07:37 Pulse Rate 63 05/22/22 07:37 Respiratory Rate 15 05/22/22 07:37 Blood Pressure 143/61 05/22/22 07:37 O2 Sat by Pulse Oximetry 96 05/22/22 07:37 Intake & Output: Intake & Output 05/19/22 05/20/22 05/21/22 05/22/22 11:59 11:59 11:59 11:59 Intake Total 1690 Output Total 1500 Balance 190 Weight 58.6 kg - Lab Result Diagrams: 05/22/22 04:20 05/22/22 04:20 Lab Results-Last 24 Hrs: Lab Results-Last 24 Hours 05/21/22 05/21/22 05/21/22 Range/Units 03:38 15:45 15:45 WBC (4.0-10.5) x10^3/uL RBC (4.1-5.4) x10^6/uL Hgb (12.0-16.0) g/dL Hct (35-47) % MCV (78-100) fL MCH (26-32) pg MCHC (32-36) g/dL RDW (11.5-14.0) % Plt Count (150-450) x10^3/uL MPV (7.5-11.0) fL Gran % (36.0-66.0) % Immature Gran % (Auto) (0.00-0.4) % Nucleat RBC Rel Count (0.00-0.1) % Eos # (Auto) (0-0.5) x10^3/uL Immature Gran # (Auto) (0.00-0.03) x10^3u/L Absolute Lymphs (auto) (1.0-4.6) x10^3/uL Absolute Monos (auto) (0.0-1.3) x10^3/uL Absolute Nucleated RBC (0.00-0.01) x10^3u/L Lymphocytes % (24.0-44.0) % Monocytes % (0.0-12.0) % Eosinophils % (0.00-5.0) % Basophils % (0.0-0.4) % Absolute Granulocytes (1.4-6.9) x10^3/uL Basophils # (0-0.4) x10^3/uL Sodium 137 (137-145) mmol/L Potassium 3.9 (3.5-5.1) mmol/L Chloride 106 (98-107) mmol/L Carbon Dioxide 26 (22-30) mmol/L Anion Gap 8.8 (5-15) MEQ/L BUN 17 (7-17) mg/dL Creatinine 0.50 L (0.52-1.04) mg/dL Estimated GFR > 60.0 ML/MIN Glucose 107 H (74-106) mg/dL Calcium 9.7 (8.4-10.2) mg/dL Total Bilirubin (0.2-1.3) mg/dL AST (14-36) U/L ALT (0-35) U/L Alkaline Phosphatase (38-126) U/L Ammonia < 9 L (9-30) umol/L Serum Total Protein (6.3-8.2) g/dL Albumin (3.5-5.0) g/dL Urinalys Dipstick Clnc MAIN LAB Urine Color DARK YELLOW (YELLOW) Urine Appearance CLEAR (CLEAR) Urine pH 5.5 (5-6) Ur Specific [place] >=1.030 A (1.005-1.025) POC Urine Protein Conf NEGATIVE (Negative) Urine Ketones NEGATIVE (NEGATIVE) Urine Nitrite NEGATIVE (NEGATIVE) Urine Bilirubin NEGATIVE (NEGATIVE) Urine Urobilinogen 0.2 (0-1) mg/dL Urine Leukocytes NEGATIVE (NEGATIVE) Urine WBC (Auto) 3-5 A (0-5) /HPF Urine RBC (Auto) 0-2 (0-2) /HPF U Epithel Cells (Auto) NONE (FEW) /HPF Urine Bacteria (Auto) NONE SEEN (NEGATIVE) /HPF Urine RBC NEGATIVE (0-5) Brian/ul Calcium Oxalate Crystal 3-5 A (NEGATIVE) /HPF Urine Mucus (Auto) SLIGHT A (NEGATIVE) /HPF Ur Culture Indicated? NO Urine Glucose NEGATIVE (NEGATIVE) mg/dL Influenza Type A Ag (NEGATIVE) Influenza Type B Ag (NEGATIVE) RSV (PCR) (Negative) SARS-CoV-2 (PCR) (NEGATIVE) 05/21/22 05/22/22 05/22/22 Range/Units Unknown 04:20 04:20 WBC 5.5 (4.0-10.5) x10^3/uL RBC 3.41 L (4.1-5.4) x10^6/uL Hgb 10.0 L (12.0-16.0) g/dL Hct 31.0 L (35-47) % MCV 90.9 (78-100) fL MCH 29.3 (26-32) pg MCHC 32.3 (32-36) g/dL RDW 12.5 (11.5-14.0) % Plt Count 200 (150-450) x10^3/uL MPV 8.8 (7.5-11.0) fL Gran % 65.9 (36.0-66.0) % Immature Gran % (Auto) 0.4 (0.00-0.4) % Nucleat RBC Rel Count 0.0 (0.00-0.1) % Eos # (Auto) 0.20 (0-0.5) x10^3/uL Immature Gran # (Auto) 0.02 (0.00-0.03) x10^3u/L Absolute Lymphs (auto) 1.23 (1.0-4.6) x10^3/uL Absolute Monos (auto) 0.41 (0.0-1.3) x10^3/uL Absolute Nucleated RBC 0.00 (0.00-0.01) x10^3u/L Lymphocytes % 22.3 L (24.0-44.0) % Monocytes % 7.4 (0.0-12.0) % Eosinophils % 3.6 (0.00-5.0) % Basophils % 0.4 (0.0-0.4) % Absolute Granulocytes 3.64 (1.4-6.9) x10^3/uL Basophils # 0.02 (0-0.4) x10^3/uL Sodium 137 (137-145) mmol/L Potassium 3.3 L (3.5-5.1) mmol/L Chloride 108 H (98-107) mmol/L Carbon Dioxide 29 (22-30) mmol/L Anion Gap 3.9 L (5-15) MEQ/L BUN 16 (7-17) mg/dL Creatinine 0.52 (0.52-1.04) mg/dL Estimated GFR > 60.0 ML/MIN Glucose 93 (74-106) mg/dL Calcium 8.9 (8.4-10.2) mg/dL Total Bilirubin 0.80 (0.2-1.3) mg/dL AST 21 (14-36) U/L ALT 8 (0-35) U/L Alkaline Phosphatase 60 (38-126) U/L Ammonia (9-30) umol/L Serum Total Protein 5.5 L (6.3-8.2) g/dL Albumin 3.0 L (3.5-5.0) g/dL Urinalys Dipstick Clnc Urine Color (YELLOW) Urine Appearance (CLEAR) Urine pH (5-6) Ur Specific [place] (1.005-1.025) POC Urine Protein Conf (Negative) Urine Ketones (NEGATIVE) Urine Nitrite (NEGATIVE) Urine Bilirubin (NEGATIVE) Urine Urobilinogen (0-1) mg/dL Urine Leukocytes (NEGATIVE) Urine WBC (Auto) (0-5) /HPF Urine RBC (Auto) (0-2) /HPF U Epithel Cells (Auto) (FEW) /HPF Urine Bacteria (Auto) (NEGATIVE) /HPF Urine RBC (0-5) Brian/ul Calcium Oxalate Crystal (NEGATIVE) /HPF Urine Mucus (Auto) (NEGATIVE) /HPF Ur Culture Indicated? Urine Glucose (NEGATIVE) mg/dL Influenza Type A Ag NEGATIVE (NEGATIVE) Influenza Type B Ag NEGATIVE (NEGATIVE) RSV (PCR) NEGATIVE (Negative) SARS-CoV-2 (PCR) NEGATIVE (NEGATIVE) - Radiology Exams Ordered Rad Exams-Entire Visit: Radiology Procedures Category Date Time Status HEAD WITHOUT CONTRAST [CT] Stat Exams 05/21/22 15:08 Completed - Discharge Disposition: Home, Self-Care Condition: Good Prescriptions: New Docusate Sodium [Colace] 100 mg PO DAILY #30 cap Potassium Chloride Tab* [Klor Con] 10 meq PO DAILY #30 tablet Continue Isosorbide Mononitrate 30 mg [Imdur 30 MG] 30 mg PO DAILY Carbidopa/Levodopa [Carbidopa-Levo ER 25-100 Tab] 1 each PO TID Multivit-Minerals/Folic Acid [Multivitamin Gummies] 200 mcg PO DAILY Discontinued Polyethylene Glycol 3350 17 gm [Miralax Powder 17GM PACKET] 17 gm PO BID 30 Days #60 packet Additional Instructions: YOU HAVE HAD A REFERRAL TO [facility] FOR A VISITING NURSE. THEY WILL CALL YOU TO SET UP YOUR FIRST VISIT. IF YOU NEED TO SPEAK WITH THEM SOONER, YOU MAY CALL [phone]. Follow up with: DELGADO CARUSO [Primary Care Provider] - 05/29/22 11:15 am
== END 2022-05-22 11:43 | disposition home health service (06) ==
LOC: ED 14:36 → MED SURG 16:48
PROVIDERS: ADMIT Family Medicine; ATTEND Family Medicine
DX: K56.41 Fecal impaction (principal); R44.3 Hallucinations, unspecified; R41.82 Altered mental status, unspecified; Z91.14 Patient's other noncompliance with medication regimen; G20 Parkinson's disease; E87.6 Hypokalemia; Z79.899 Other long term (current) drug therapy; Z20.828 Contact with and (suspected) exposure to other viral communicable diseases
CPT/HCPCS: 0241U; 36000; 36415; 70450; 80048; 80053; 81015; 82140; 85025; 99285; G0378; A9270-GY

== ENCOUNTER 2022-10-19 10:02 | Observation (INO) | payer MEDICARE ==
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
[2022-10-19] MEDS ORDERED: Sodium Chloride 0.9% 1000 ML 1,000 ML IV STA (10:26)
[2022-10-19] MEDS ORDERED: Sodium Chloride 0.9% 1000 ML 1,000 ML ONE (10:35)
[2022-10-19 11:44] LABS: INFLUENZA A NEGATIVE (NEGATIVE); INFLUENZA B NEGATIVE (NEGATIVE); RESPIRATORY SYNCTIAL VIRUS NEGATIVE (NEGATIVE); SARS-CoV-2 Xpert Express NEGATIVE (NEGATIVE)
[2022-10-19 11:49] LABS: Absolute Neutrophil Ct (ANC) 4.61 x10^3/uL (1.4-6.9); BASOPHIL % 0.5 % (0.0-0.4); Basophil (Absolute #) 0.03 x10^3/uL (0-0.4); Eosinophil % 2.6 % (0.00-5.0); Eosinophil (Absolute #) 0.16 x10^3/uL (0-0.5); Hemoglobin 12.5 g/dL (12.0-16.0); IMMATURE GRAN # 0.03 x10^3u/L (0.00-0.03); IMMATURE GRAN % 0.5 % (0.00-0.4); Lymphocyte (Absolute #) 1.11 x10^3/uL (1.0-4.6); Lymphocytes % 17.7 % (24.0-44.0); Mean Cell Volume 92.2 fL (78-100); Mean Corpuscular Hemoglobin 29.6 pg (26-32); Mean Corpuscular Hgb Concent. 32.1 g/dL (32-36); Mean Platelet Volume 8.9 fL (7.5-11.0); Monocyte (Absolute #) 0.33 x10^3/uL (0.0-1.3); Monocytes % 5.3 % (0.0-12.0); Neutrophil % 73.4 % (36.0-66.0); Platelet Count 220 x10^3/uL (150-450); Red Blood Count 4.23 x10^6/uL (4.1-5.4); Red Cell Distribution Width 12.7 % (11.5-14.0); White Blood Count 6.3 x10^3/uL (4.0-10.5)
[2022-10-19 12:07] LABS: ALKALINE PHOSPHATASE 80 U/L (38-126); ANION GAP 8.9 MEQ/L (5-15); BLOOD UREA NITROGEN 25 mg/dL (7-17); CHLORIDE 107 mmol/L (98-107); Calcium 9.5 mg/dL (8.4-10.2); Carbon Dioxide 31 mmol/L (22-30); Creatinine 1 0.64 mg/dL (0.52-1.04); EST GLOMERULAR FILTRATION RATE > 60.0 ML/MIN; Glucose 96 mg/dL (74-106); Potassium 4.1 mmol/L (3.5-5.1); SGOT/AST 27 U/L (14-36); SGPT/ALT 6 U/L (0-35); SODIUM 142 mmol/L (137-145); Total Protein 6.9 g/dL (6.3-8.2)
[2022-10-19 12:50] LABS: Appearance Clear (Clear); Bacteria None Seen /HPF (None Seen); Bilirubin Negative (Negative); Blood Negative (Negative); Epithelial Cells None Seen /HPF (None Seen); Glucose, Urine Negative (Negative); Hyaline Casts NONE SEEN /LPF (0-2); Ketones Negative (Negative); Leukocyte Esterase Negative (Negative); Nitrite Negative (Negative); Protein,Urine Dip Negative (Negative); RBC 0-2 /HPF (0-5); Specific Gravity 1.015 (1.005-1.030); WBC 0-2 /HPF (0-5)
[2022-10-19 12:58] LABS: ADD URINE CULTURE? NO (NO)
[2022-10-19] MEDS ORDERED: Zofran 4 MG/2 ML VIAL IV PRN (13:26)
[2022-10-19] MEDS ORDERED: TYLENOL 325 MG PO PRN (13:26)
[2022-10-19] MEDS ORDERED: Sodium Chloride 0.9% 1000 ML 1,000 ML IV SCH (13:26)
[2022-10-19] MEDS ORDERED: NON-FORMULARY ITEM (Carbidopa/Levodopa [Carbidopa-Levo Er 25-100 Tab] 1 EACH Tablet.Er) PO SCH (15:00)
[2022-10-19] MEDS: Docusate Sodium 100 MG PO SCH (15:16)
[2022-10-19] MEDS: Sinemet CR 50/200 MG PO SCH ×2 (15:16→21:08)
[2022-10-19] MEDS: THERAGRAN MULTIVITAMIN PO SCH (15:17)
[2022-10-19] MEDS: Imdur 30 MG PO SCH (15:17)
--- NOTE | 2022-10-19 19:29 | XRAY ---
Indication: Confusion. History of Parkinson's disease. Multiple contiguous axial images obtained through the head without contrast. Comparison: June 05, 2022 Again age-appropriate global atrophy and minimal periventricular degenerative microischemia. No acute intracranial hemorrhage, abnormal extra-axial fluid collection, or mass effect. Fourth ventricle is midline without hydrocephalus. Bony calvarium intact again with incidental hyperostosis frontalis interna. Visualized paranasal sinuses and mastoid air cells are clear. Impression: Continued nonacute senile brain. Comment: Preliminary interpretation made by [facility]. No critical discrepancy.
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
[2022-10-20 04:55] LABS: Absolute Neutrophil Ct (ANC) 3.86 x10^3/uL (1.4-6.9); BASOPHIL % 0.2 % (0.0-0.4); Basophil (Absolute #) 0.01 x10^3/uL (0-0.4); Eosinophil % 2.9 % (0.00-5.0); Eosinophil (Absolute #) 0.16 x10^3/uL (0-0.5); Hematocrit 35.6 % (35-47); Hemoglobin 11.2 g/dL (12.0-16.0); IMMATURE GRAN # 0.01 x10^3u/L (0.00-0.03); IMMATURE GRAN % 0.2 % (0.00-0.4); Lymphocyte (Absolute #) 1.14 x10^3/uL (1.0-4.6); Lymphocytes % 20.7 % (24.0-44.0); Mean Cell Volume 91.3 fL (78-100); Mean Corpuscular Hemoglobin 28.7 pg (26-32); Mean Corpuscular Hgb Concent. 31.5 g/dL (32-36); Mean Platelet Volume 8.9 fL (7.5-11.0); Monocyte (Absolute #) 0.32 x10^3/uL (0.0-1.3); Monocytes % 5.8 % (0.0-12.0); Neutrophil % 70.2 % (36.0-66.0); Platelet Count 194 x10^3/uL (150-450); Red Cell Distribution Width 12.8 % (11.5-14.0); White Blood Count 5.5 x10^3/uL (4.0-10.5)
[2022-10-20 05:06] LABS: ALBUMIN 3.5 g/dL (3.5-5.0); ALKALINE PHOSPHATASE 71 U/L (38-126); ANION GAP 7.9 MEQ/L (5-15); BLOOD UREA NITROGEN 21 mg/dL (7-17); CHLORIDE 109 mmol/L (98-107); Calcium 9.3 mg/dL (8.4-10.2); Carbon Dioxide 26 mmol/L (22-30); Creatinine 1 0.55 mg/dL (0.52-1.04); EST GLOMERULAR FILTRATION RATE > 60.0 ML/MIN; Glucose 146 mg/dL (74-106); Potassium 3.3 mmol/L (3.5-5.1); SGOT/AST 24 U/L (14-36); SGPT/ALT 10 U/L (0-35); SODIUM 140 mmol/L (137-145); Total Protein 6.1 g/dL (6.3-8.2)
[2022-10-20] MEDS: Docusate Sodium 100 MG PO SCH (09:12)
[2022-10-20] MEDS: Sinemet CR 50/200 MG PO SCH ×3 (09:12→21:48)
[2022-10-20] MEDS: Imdur 30 MG PO SCH (09:13)
[2022-10-20] MEDS: THERAGRAN MULTIVITAMIN PO SCH (09:13)
[2022-10-20] MEDS ORDERED: [UNRECOGNIZED DRUG - OTHER] PO SCH (10:00)
[2022-10-20] MEDS ORDERED: FOLIC ACID PO SCH (10:00)
[2022-10-20] MEDS ORDERED: MULTIVIT MINERALS PO SCH (10:00)
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
--- NOTE | 2022-10-20 14:19 | XRAY ---
Indication: correction placement. Comparison: April 13, 2021 Portable chest unchanged again hyperinflated and clear. Heart not enlarged again with left pacemaker. Bony thorax intact again with osteopenia, mild degenerative changes, and minimal levoscoliosis. Impression: Continued nonacute hyperinflated chest with chronic features.
--- NOTE | 2022-10-21 08:08 | PCM.NOTE ---
Date and Time: 10/21/22 0804 Subjective Assessment: Pt thinks she is in the "hospital... I don't know, [facility] I guess." Knows year is 2022 but doesn't know the date. Denies pain. Per notes, plan is to possibly go to [facility]. - Review of Systems All Other Systems: Unable due to dementia Objective Exam General Appearance: no apparent distress, alert Neurologic Exam: cooperative, confusion Skin Exam: normal color, warm, dry, No rash Eye Exam: eyes nml inspection Respiratory Exam: normal breath sounds, No crackles/rales, No rhonchi, No wheezing Cardiovascular Exam: regular rate/rhythm, normal heart sounds, No murmur Gastrointestinal/Abdomen Exam: soft, normal bowel sounds, No tenderness, No distention, No mass, No guarding, No rebound Extremity Exam: normal inspection, No pedal edema, No swelling Back Exam: normal inspection, No rash OBJECTIVE DATA Vital Signs: Vital Signs - 24 hr Temp Pulse Resp BP Pulse Ox 10/21/22 07:29 97.6 F 64 16 131/61 97 10/21/22 03:59 97.4 F 67 16 139/63 96 10/20/22 20:00 96.1 F 70 16 155/88 96 10/20/22 15:56 98.1 F 67 16 129/59 98 10/20/22 10:41 97.5 F 62 15 139/64 97 Pain Assessment - Last Documented Pain Intensity 0 Intake and Output: Intake & Output 10/18/22 10/19/22 10/20/22 10/21/22 11:59 11:59 11:59 11:59 Intake Total 708 1100 Output Total 325 825 Balance 383 275 Weight 77.3 kg 58.8 kg 57.8 kg Lab Results: Lab Results-Last 24 Hours 10/20/22 10/20/22 Range/Units 04:00 14:15 Creatine Kinase 59 54 (30-135) U/L Radiology Exams: Radiology Procedures Category Date Time Status CHEST 1 VIEW (PORTABLE) Routine Exams 10/20/22 14:09 Completed HEAD WITHOUT CONTRAST [CT] Stat Exams 10/19/22 10:44 Completed PELVIS WITHOUT CONTRAST [CT] Stat Exams 10/19/22 10:27 Completed Multi-Disciplinary Progress Notes: Multi-Disciplinary Progress Notes 10/20/22 15:36 Case Management Note by Neena Coyle CALLED [facility] TO CHECK ON REFERRAL- PHONES CURRENTLY NOT WORKING. ( RECENT [employer]ORNADO AFFECTING PHONE LINES) Initialized on 10/20/22 15:36 - END OF NOTE 10/20/22 10:33 Case Management Note by Jeannie Hall FROM [facility] CALLED TO CHECK ON PATIENT. SHE RECEIVED NON- SKILLED SERVICES WITH THEM - 4 HOURS WEEKLY. REPORTS THAT THEY ASSIST WITH HOUSEHOLD TASKS, MEAL PREP, AND ERRANDS. [facility] PHONE NUMBER IS [phone]. WE WILL NOTIFY THEM WITH ANY UPDATES AND DISCHARGE PLANNING. Initialized on 10/20/22 10:33 - END OF NOTE Assessment/Plan (1) Parkinsons disease Current Visit: Yes Status: Chronic Assessment & Plan: May be eligible for placement at [facility]. Code(s): G20 - PARKINSON'S DISEASE (2) Inability to walk Current Visit: Yes Status: Acute Code(s): R26.2 - DIFFICULTY IN WALKING, NOT ELSEWHERE CLASSIFIED (3) Generalized weakness Current Visit: Yes Status: Chronic Code(s): R53.1 - WEAKNESS (4) Hallucination, visual Current Visit: No Status: Chronic Code(s): R44.1 - VISUAL HALLUCINATIONS (5) Hypokalemia Current Visit: No Status: Acute Assessment & Plan: Has trouble swallowing pills. Will try k-lyte. Code(s): E87.6 - HYPOKALEMIA
[2022-10-21] MEDS: Docusate Sodium 100 MG PO SCH (10:13)
[2022-10-21] MEDS: K-LYTE PO SCH (10:13)
[2022-10-21] MEDS: THERAGRAN MULTIVITAMIN PO SCH (10:13)
[2022-10-21] MEDS: Sinemet CR 50/200 MG PO SCH ×3 (10:13→23:00)
[2022-10-21] MEDS: Imdur 30 MG PO SCH (10:13)
[2022-10-22 05:08] LABS: Hematocrit 38.6 % (35-47); Hemoglobin 12.4 g/dL (12.0-16.0); Mean Cell Volume 90.4 fL (78-100); Mean Corpuscular Hgb Concent. 32.1 g/dL (32-36); Mean Platelet Volume 8.8 fL (7.5-11.0); Platelet Count 223 x10^3/uL (150-450); Red Blood Count 4.27 x10^6/uL (4.1-5.4); Red Cell Distribution Width 12.7 % (11.5-14.0); White Blood Count 5.2 x10^3/uL (4.0-10.5)
[2022-10-22 05:23] LABS: ANION GAP 8.6 MEQ/L (5-15); BLOOD UREA NITROGEN 21 mg/dL (7-17); CHLORIDE 106 mmol/L (98-107); Calcium 9.9 mg/dL (8.4-10.2); Carbon Dioxide 31 mmol/L (22-30); Creatinine 1 0.61 mg/dL (0.52-1.04); EST GLOMERULAR FILTRATION RATE > 60.0 ML/MIN; Glucose 95 mg/dL (74-106); SODIUM 142 mmol/L (137-145)
[2022-10-22] MEDS: K-LYTE PO SCH (10:06)
[2022-10-22] MEDS: Imdur 30 MG PO SCH (10:06)
[2022-10-22] MEDS: Docusate Sodium 100 MG PO SCH (10:07)
[2022-10-22] MEDS: Sinemet CR 50/200 MG PO SCH (10:07)
[2022-10-22] MEDS: THERAGRAN MULTIVITAMIN PO SCH (10:08)
[2022-10-22 12:26] VITALS: BP 131/61; PULSE 63; O2SAT 97
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
== END 2022-10-22 14:25 ==
LOC: ED 10:02 → INTOOBSV 13:19 → MED SURG 13:19
PROVIDERS: ADMIT Family Medicine; ATTEND Family Medicine
DX: G20 Parkinson's disease (principal); R26.2 Difficulty in walking, not elsewhere classified; R53.1 Weakness; R44.1 Visual hallucinations; E87.6 Hypokalemia; W19.XXXA Unspecified fall, initial encounter; M25.552 Pain in left hip; Z79.899 Other long term (current) drug therapy; Z20.828 Contact with and (suspected) exposure to other viral communicable diseases
CPT/HCPCS: 0241U; 36000; 36415; 70450; 71045; 72192; 80048; 80053; 81001; 82550; 85025; 85027; 96360; 97110; 97161; 97530; 99283; G0378; A9270-GY

== ENCOUNTER 2023-03-11 15:04 | Observation (INO) | payer MEDICARE ==
--- NOTE | 2023-03-11 15:52 | ERPHSYRPT ---
- History of Present Illness Time Seen by Provider: 03/11/23 15:16 Source: patient Exam Limitations: no limitations Patient Subjective Stated Complaint: Pt son whom is the POA stated "She has dementia and parkinsons and she is getting worse and worse. We try to help as much as we can but she lives alone and she needs to go to a fpc. Dr. Suarez said she is not safe to live alone. We called the [facility] and they said the fastest way there was through the ED" Triage Nursing Assessment: PT presented alert and oriented X 3, skin pwd. Pt ambulates with an upright steady gait, able to speak in clear full sentences. Pt is resting comfortably on the bed able to speak in clear full sentences. Physician History: Patient is here with worsening mental status. Per the family, patient has a baseline of dementia and Parkinson's. They state that over the last 2 to 3 weeks patient has gotten more confused has lost her home therefore moved out. They state that she had stripped all of her clothes off today and was in the lobby of her building calling for help. No falls or other trauma. No known COVID symptoms, fever, chills, malaise. Allergies/Adverse Reactions: No Known Drug Allergies Allergy (Verified 10/19/22 10:15) Home Medications: Carbidopa/Levodopa [Carbidopa-Levo ER 25-100 Tab] 1 each PO TID 09/07/21 [History] Isosorbide Mononitrate 30 mg [Imdur 30 MG] 30 mg PO DAILY 09/07/21 [History] Gabapentin 100 mg PO HS 03/11/23 [History] Potassium Chloride 10 meq PO DAILY 03/11/23 [History] risperiDONE [Risperdal] 0.5 mg PO DAILY 03/11/23 [History] Hx Tetanus, Diphtheria Vaccination/Date Given: Yes Hx Influenza Vaccination/Date Given: Yes Hx Pneumococcal Vaccination/Date Given: Yes Immunizations Up to Date: Yes Travel Risk - International Travel Have you traveled outside of the country in past 3 weeks: No - Coronavirus Screening Are you exhibiting any of the following symptoms?: No Close contact with a COVID-19 positive Pt in past 14-21 Days: No - Vaccine Status Have you recieved a Covid-19 vaccination: Yes Office Lead: Moderna - Vaccination Dates Date of 2cond Vaccination (if applicable): unknown - Review of Systems Constitutional: No Fever, No Chills Eyes: No Symptoms Ears, Nose, & Throat: No Symptoms Respiratory: No Cough, No Dyspnea Cardiac: No Chest Pain, No Edema, No Syncope Abdominal/Gastrointestinal: No Abdominal Pain, No Nausea, No Vomiting, No Diarrhea Genitourinary Symptoms: No Dysuria Musculoskeletal: No Back Pain, No Neck Pain Skin: No Rash Neurological: No Dizziness, No Focal Weakness, No Sensory Changes Psychological: No Symptoms Endocrine: No Symptoms All Other Systems: Reviewed and Negative - Past Medical History Pertinent Past Medical History: Yes Neurological History: Other ENT History: Other Cardiac History: No Pertinent History Respiratory History: No Pertinent History Endocrine Medical History: No Pertinent History Musculoskeletal History: Degenerative Disk Disease GI Medical History: No Pertinent History History: No Pertinent History Psycho-Social History: No Pertinent History Female Reproductive Disorders: No Pertinent History Other Medical History: heart murmur,bleeding behind the left eye years ago, PARKINSONS - Past Surgical History Past Surgical History: Yes Neuro Surgical History: No Pertinent History Cardiac: Pacemaker Respiratory: No Pertinent History Gastrointestinal: Appendectomy Genitourinary: No Pertinent History Musculoskeletal: No Pertinent History Female Surgical History: Hysterectomy - Social History Smoking Status: Never smoker Exposure to second hand smoke: No Drug Use: none Patient Lives Alone: Yes - Nursing Vital Signs Nursing Vital Signs: Initial Vital Signs Temperature 97.9 F 03/11/23 15:12 Pulse Rate 66 03/11/23 15:12 Respiratory Rate 22 03/11/23 15:12 Blood Pressure 122/69 03/11/23 15:12 O2 Sat by Pulse Oximetry 95 03/11/23 15:12 Pain Scale Pain Intensity 0 - Physical Exam General Appearance: no apparent distress, alert Eye Exam: PERRL/EOMI, eyes nml inspection Ears, Nose, Throat Exam: normal ENT inspection, TMs normal, pharynx normal, moist mucous membranes Neck Exam: normal inspection, non-tender, supple, full range of motion Respiratory Exam: normal breath sounds, lungs clear, No respiratory distress Cardiovascular Exam: regular rate/rhythm, normal heart sounds, normal peripheral pulses Gastrointestinal/Abdomen Exam: soft, normal bowel sounds, No tenderness, No mass Back Exam: normal inspection, normal range of motion, No CVA tenderness, No vertebral tenderness Extremity Exam: normal inspection, normal range of motion, pelvis stable Neurologic Exam: alert, oriented x 3, cooperative, normal mood/affect, nml cereb ellar function, nml station & gait, sensation nml, No motor deficits Skin Exam: normal color, warm, dry, No rash Lymphatic Exam: No adenopathy SpO2: 95 Ordered Tests: Active Orders 24 hr Category Date Time Status Up With Assistance ROUTINE Activity 03/11/23 16:50 Active Call Admit Doctor for Orders ON ADMISSION Care 03/11/23 16:51 Active Exercise Manager STAT Care 03/11/23 15:23 Active Code Status Order ROUTINE Care 03/11/23 16:51 Active EKG-ER Only STAT Care 03/11/23 15:23 Active IV Insertion STAT Care 03/11/23 15:[address] in Observation ROUTINE Care 03/11/23 16:51 Active House Regular Diet Diet 03/12/23 Breakfast Active CHEST 1 VIEW (PORTABLE) Stat Exams 03/11/23 15:23 Completed CBC W DIFF Stat Lab 03/11/23 15:23 Completed CK-Creatinine Phosphokinase Stat Lab 03/11/23 15:23 Completed CMP Stat Lab 03/11/23 15:23 Completed NT PRO BNPII Stat Lab 03/11/23 Completed TROPONIN Q4H Lab 03/11/23 15:30 Completed TROPONIN Q4H Lab 03/11/23 19:30 Ordered TROPONIN Q4H Lab 03/11/23 23:30 Ordered UA W/RFX UR CULTURE Stat Lab 03/11/23 15:43 Received Lab/Rad Data: Laboratory Result Diagrams 03/11/23 15:23 03/11/23 15:23 Laboratory Results 03/11/23 03/11/23 03/11/23 Range/Units Unknown Unknown 15:30 WBC (4.0-10.5) x10^3/uL RBC (4.1-5.4) x10^6/uL Hgb (12.0-16.0) g/dL Hct (35-47) % MCV (78-100) fL MCH (26-32) pg MCHC (32-36) g/dL RDW (11.5-14.0) % Plt Count (150-450) x10^3/uL MPV (7.5-11.0) fL Gran % (36.0-66.0) % Immature Gran % (Auto) (0.00-0.4) % Nucleat RBC Rel Count (0.00-0.1) % Eos # (Auto) (0-0.5) x10^3/uL Immature Gran # (Auto) (0.00-0.03) x10^3u/L Absolute Lymphs (auto) (1.0-4.6) x10^3/uL Absolute Monos (auto) (0.0-1.3) x10^3/uL Absolute Nucleated RBC (0.00-0.01) x10^3u/L Lymphocytes % (24.0-44.0) % Monocytes % (0.0-12.0) % Eosinophils % (0.00-5.0) % Basophils % (0.0-0.4) % Absolute Granulocytes (1.4-6.9) x10^3/uL Basophils # (0-0.4) x10^3/uL Sodium (137-145) mmol/L Potassium (3.5-5.1) mmol/L Chloride (98-107) mmol/L Carbon Dioxide (22-30) mmol/L Anion Gap (5-15) MEQ/L BUN (7-17) mg/dL Creatinine (0.52-1.04) mg/dL Estimated GFR ML/MIN Glucose (74-106) mg/dL Calcium (8.4-10.2) mg/dL Total Bilirubin (0.2-1.3) mg/dL AST (14-36) U/L ALT (0-35) U/L Alkaline Phosphatase (38-126) U/L Creatine Kinase (30-135) U/L Troponin I < 0.012 (0.000-0.034) ng/mL NT-Pro-B Natriuret Pep 251 (<300) pg/mL Serum Total Protein (6.3-8.2) g/dL Albumin (3.5-5.0) g/dL Influenza Type A Ag NEGATIVE (NEGATIVE) Influenza Type B Ag NEGATIVE (NEGATIVE) RSV (PCR) NEGATIVE (NEGATIVE) SARS-CoV-2 (PCR) NEGATIVE (NEGATIVE) 03/11/23 03/11/23 Range/Units 15:23 15:23 WBC 4.9 (4.0-10.5) x10^3/uL RBC 3.90 L (4.1-5.4) x10^6/uL Hgb 11.4 L (12.0-16.0) g/dL Hct 35.0 (35-47) % MCV 89.7 (78-100) fL MCH 29.2 (26-32) pg MCHC 32.6 (32-36) g/dL RDW 12.6 (11.5-14.0) % Plt Count 204 (150-450) x10^3/uL MPV 8.6 (7.5-11.0) fL Gran % 67.1 H (36.0-66.0) % Immature Gran % (Auto) 0.4 (0.00-0.4) % Nucleat RBC Rel Count 0.0 (0.00-0.1) % Eos # (Auto) 0.11 (0-0.5) x10^3/uL Immature Gran # (Auto) 0.02 (0.00-0.03) x10^3u/L Absolute Lymphs (auto) 1.09 (1.0-4.6) x10^3/uL Absolute Monos (auto) 0.36 (0.0-1.3) x10^3/uL Absolute Nucleated RBC 0.00 (0.00-0.01) x10^3u/L Lymphocytes % 22.4 L (24.0-44.0) % Monocytes % 7.4 (0.0-12.0) % Eosinophils % 2.3 (0.00-5.0) % Basophils % 0.4 (0.0-0.4) % Absolute Granulocytes 3.27 (1.4-6.9) x10^3/uL Basophils # 0.02 (0-0.4) x10^3/uL Sodium 138 (137-145) mmol/L Potassium 4.0 (3.5-5.1) mmol/L Chloride 105 (98-107) mmol/L Carbon Dioxide 26 (22-30) mmol/L Anion Gap 11.5 (5-15) MEQ/L BUN 21 H (7-17) mg/dL Creatinine 0.58 (0.52-1.04) mg/dL Estimated GFR > 60.0 ML/MIN Glucose 107 H (74-106) mg/dL Calcium 9.6 (8.4-10.2) mg/dL Total Bilirubin 0.70 (0.2-1.3) mg/dL AST 21 (14-36) U/L ALT 7 (0-35) U/L Alkaline Phosphatase 68 (38-126) U/L Creatine Kinase 27 L (30-135) U/L Troponin I (0.000-0.034) ng/mL NT-Pro-B Natriuret Pep (<300) pg/mL Serum Total Protein 6.5 (6.3-8.2) g/dL Albumin 4.0 (3.5-5.0) g/dL Influenza Type A Ag (NEGATIVE) Influenza Type B Ag (NEGATIVE) RSV (PCR) (NEGATIVE) SARS-CoV-2 (PCR) (NEGATIVE) - Progress Progress: improved Progress Note: 03/11/23 15:51 Differential diagnosis includes: UTI, worsening dementia, metabolic encephalopathy PNA, STEMI, NSTEMI, other infection, musculoskeletal pain, pneumothorax - We'll obtain basic labs, fluids, EKG, troponin, chest x-ray - EKG shows no ST changes - my read - O2 saturations consistently greater than 95%. - CXR shows no pneumonia, pneumothorax - my read 03/11/23 17:09 Patient appears to have acute metabolic encephalopathy. Most likely acute on chronic, worsening dementia. Discussed over the phone with on-call physician, Dr. Fang. He agreed to admission for observation here in the hospital. Will see patient in: hospital (observation) Counseled pt/family regarding: lab results, diagnosis, need for follow-up - Departure Departure Disposition: Observation Clinical Impression: Acute metabolic encephalopathy Condition: Stable Critical Care Time: No Referrals: [facility] [LOCATION] - Follow up/PCP as directed
[2023-03-11 15:56] LABS: Absolute Neutrophil Ct (ANC) 3.27 x10^3/uL (1.4-6.9); BASOPHIL % 0.4 % (0.0-0.4); Basophil (Absolute #) 0.02 x10^3/uL (0-0.4); Eosinophil % 2.3 % (0.00-5.0); Eosinophil (Absolute #) 0.11 x10^3/uL (0-0.5); Hemoglobin 11.4 g/dL (12.0-16.0); IMMATURE GRAN # 0.02 x10^3u/L (0.00-0.03); IMMATURE GRAN % 0.4 % (0.00-0.4); Lymphocyte (Absolute #) 1.09 x10^3/uL (1.0-4.6); Lymphocytes % 22.4 % (24.0-44.0); Mean Cell Volume 89.7 fL (78-100); Mean Corpuscular Hemoglobin 29.2 pg (26-32); Mean Corpuscular Hgb Concent. 32.6 g/dL (32-36); Mean Platelet Volume 8.6 fL (7.5-11.0); Monocyte (Absolute #) 0.36 x10^3/uL (0.0-1.3); Monocytes % 7.4 % (0.0-12.0); Neutrophil % 67.1 % (36.0-66.0); Platelet Count 204 x10^3/uL (150-450); Red Cell Distribution Width 12.6 % (11.5-14.0); White Blood Count 4.9 x10^3/uL (4.0-10.5)
[2023-03-11 16:02] LABS: ALKALINE PHOSPHATASE 68 U/L (38-126); ANION GAP 11.5 MEQ/L (5-15); BLOOD UREA NITROGEN 21 mg/dL (7-17); CHLORIDE 105 mmol/L (98-107); CK-Creatinine Phosphokinase 27 U/L (30-135); Calcium 9.6 mg/dL (8.4-10.2); Carbon Dioxide 26 mmol/L (22-30); Creatinine 1 0.58 mg/dL (0.52-1.04); EST GLOMERULAR FILTRATION RATE > 60.0 ML/MIN; Glucose 107 mg/dL (74-106); SGOT/AST 21 U/L (14-36); SGPT/ALT 7 U/L (0-35); SODIUM 138 mmol/L (137-145); Total Protein 6.5 g/dL (6.3-8.2)
[2023-03-11 16:12] LABS: Appearance Clear (Clear); Bacteria None Seen /HPF (None Seen); Bilirubin Negative (Negative); Blood Negative (Negative); Epithelial Cells None Seen /HPF (None Seen); Glucose, Urine Negative (Negative); Hyaline Casts NONE SEEN /LPF (0-2); Ketones Trace (Negative); Leukocyte Esterase Trace (Negative); Nitrite Negative (Negative); Ph 5.5 (4.6-8.0); Protein,Urine Dip Negative (Negative); RBC 0-2 /HPF (0-5)
--- NOTE | 2023-03-11 16:19 | XRAY ---
Indication: Pneumonia. Comparison: October 20, 2022 Portable chest remains clear again with COPD. Heart not enlarged again with arteriosclerotic aorta and left dual-lead pacemaker. Bony thorax intact again with osteopenia and mild degenerative changes. Impression: Continued nonacute chest with chronic features.
[2023-03-11 16:30] LABS: INFLUENZA A NEGATIVE (NEGATIVE); INFLUENZA B NEGATIVE (NEGATIVE); RESPIRATORY SYNCTIAL VIRUS NEGATIVE (NEGATIVE); SARS-CoV-2 Xpert Express NEGATIVE (NEGATIVE)
[2023-03-11 17:11] LABS: ADD URINE CULTURE? NO (NO)
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
[2023-03-11] MEDS ORDERED: Zofran 4 MG/2 ML VIAL IV PRN (18:43)
[2023-03-11] MEDS ORDERED: TYLENOL 325 MG PO PRN (18:43)
[2023-03-11] MEDS: Sodium Chloride 0.9% 1000 ML 1,000 ML IV SCH (19:04)
[2023-03-11 21:06] LABS: Folate (Folic Acid) > 19.0 ng/mL (2.76 - >20); Vitamin B12 283 pg/mL (239-931)
[2023-03-12 06:02] LABS: ALBUMIN 3.6 g/dL (3.5-5.0); ALKALINE PHOSPHATASE 60 U/L (38-126); BLOOD UREA NITROGEN 20 mg/dL (7-17); CHLORIDE 106 mmol/L (98-107); Calcium 9.4 mg/dL (8.4-10.2); Carbon Dioxide 27 mmol/L (22-30); EST GLOMERULAR FILTRATION RATE > 60.0 ML/MIN; Glucose 94 mg/dL (74-106); Potassium 3.9 mmol/L (3.5-5.1); SGOT/AST 19 U/L (14-36); SGPT/ALT 14 U/L (0-35); SODIUM 139 mmol/L (137-145)
[2023-03-12 06:18] LABS: Absolute Neutrophil Ct (ANC) 2.84 x10^3/uL (1.4-6.9); BASOPHIL % 0.4 % (0.0-0.4); Basophil (Absolute #) 0.02 x10^3/uL (0-0.4); Eosinophil (Absolute #) 0.14 x10^3/uL (0-0.5); Hemoglobin 11.3 g/dL (12.0-16.0); IMMATURE GRAN # 0.03 x10^3u/L (0.00-0.03); IMMATURE GRAN % 0.6 % (0.00-0.4); Lymphocyte (Absolute #) 1.32 x10^3/uL (1.0-4.6); Lymphocytes % 28.5 % (24.0-44.0); Mean Cell Volume 89.3 fL (78-100); Mean Corpuscular Hemoglobin 28.8 pg (26-32); Mean Corpuscular Hgb Concent. 32.3 g/dL (32-36); Mean Platelet Volume 8.9 fL (7.5-11.0); Monocyte (Absolute #) 0.28 x10^3/uL (0.0-1.3); Neutrophil % 61.5 % (36.0-66.0); Platelet Count 210 x10^3/uL (150-450); Red Blood Count 3.92 x10^6/uL (4.1-5.4); Red Cell Distribution Width 12.8 % (11.5-14.0); White Blood Count 4.6 x10^3/uL (4.0-10.5)
[2023-03-12 07:14] VITALS: RESP 17; TEMP 97.7; O2SAT 93
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
--- NOTE | 2023-03-12 08:38 | XRAY ---
Indication: Altered mental status. Multiple contiguous axial images obtained through the head without contrast. Comparison: October 19, 2022. Again age-appropriate global atrophy and minimal periventricular degenerative micro-ischemia. No acute intracranial hemorrhage, abnormal extra-axial fluid collection, or mass effect. Fourth ventricle midline without hydrocephalus. Newton-white matter differentiation preserved. Bony calvarium intact. Visualized paranasal sinuses and mastoid air cells are clear. Impression: Continued nonacute senile brain.
[2023-03-12] MEDS: Sodium Chloride 0.9% 1000 ML 1,000 ML IV SCH (08:45)
[2023-03-12] MEDS: Sinemet CR 50/200 MG PO SCH ×2 (09:07→14:12)
[2023-03-12] MEDS ORDERED: NON-FORMULARY ITEM (Carbidopa/Levodopa [Carbidopa-Levo Er 25-100 Tab] 1 EACH Tablet.Er) PO SCH (10:00)
[2023-03-12] MEDS ORDERED: ROCEPHIN 1 Gm-D5w 50 ml Bag** 1 G/50 ML IVPB IV SCH (10:00)
[2023-03-12] MEDS ORDERED: ENOXAPARIN SODIUM SQ SCH (10:00)
[2023-03-12] MEDS ORDERED: CHOLECALCIFEROL 50 MCG PO SCH (10:00)
[2023-03-12] MEDS ORDERED: NON-FORMULARY ITEM (Potassium Chloride [Potassium Chloride] 10 MEQ Capsule.Er) PO SCH (10:00)
[2023-03-12] MEDS ORDERED: Imdur 30 MG PO SCH (10:00)
[2023-03-12] MEDS ORDERED: Klor Con PO SCH (10:00)
[2023-03-12] MEDS ORDERED: Docusate Sodium 100 MG PO SCH (10:00)
[2023-03-12] MEDS ORDERED: VITAMIN D PO SCH (10:00)
[2023-03-12 11:18] VITALS: BP 129/99; PULSE 66
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
[2023-03-12] MEDS ORDERED: NON-FORMULARY ITEM (Risperidone [Risperdal] 0.5 MG Tablet) PO SCH (22:00)
[2023-03-12] MEDS ORDERED: Risperdal 1 MG PO SCH (22:00)
[2023-03-12] MEDS ORDERED: Neurontin PO SCH (22:00)
== END 2023-03-12 15:07 ==
LOC: ED 15:04 → MED SURG 17:18
PROVIDERS: ADMIT Internal Medicine; ATTEND Internal Medicine
DX: G93.41 Metabolic encephalopathy (principal); G20 Parkinson's disease; R44.3 Hallucinations, unspecified; F03.90 Unspecified dementia, unspecified severity, without behavioral disturbance, psychotic disturbance, mood disturbance, and anxiety; Z79.899 Other long term (current) drug therapy; Z20.828 Contact with and (suspected) exposure to other viral communicable diseases
CPT/HCPCS: 0241U; 36000; 36415; 70450; 71045; 80053; 81001; 82140; 82533; 82550; 82607; 82746; 83605; 83880; 84443; 84484; 85025; 93005; 93041; 99285; G0378; Q3014; J1650; A9270-GY

== ENCOUNTER 2025-05-14 13:58 | Emergency (ER) | payer MEDICARE, OTHER ==
[2025-05-14 14:20] VITALS: TEMP 98.3
[2025-05-14 14:29] LABS: BASOPHIL % 0.2 % (0.1-1.2); Basophil (Absolute #) 0.02 x10^3/uL (0.01-0.08); Eosinophil (Absolute #) 0 x10^3/uL (0.04-0.36); Hematocrit 41.7 % (34.1-44.9); Hemoglobin 12.9 g/dL (11.2-15.7); IMMATURE GRAN # 0.09 x10^3u/L (0.001-0.031); IMMATURE GRAN % 0.7 % (0.001-0.429); Lymphocyte (Absolute #) 0.44 x10^3/uL (1.18-3.74); Mean Corpuscular Hemoglobin 26.9 pg (25.6-32.2); Mean Corpuscular Hgb Concent. 30.9 g/dL (32.2-35.5); Monocyte (Absolute #) 0.74 x10^3/uL (0.24-0.86); NUCLEATED RBC # 0.00 x10^3u/L (0.00-0.012); NUCLEATED RBC % 0.0 % (0.00-0.2); Platelet Count 276 x10^3/uL (182-369); Red Blood Count 4.79 x10^6/uL (3.93-5.22); White Blood Count 12.2 x10^3/uL (3.98-10.04)
[2025-05-14 14:35] LABS: Glucose, Urine Negative (Negative); Protein,Urine Dip 30 (Negative)
[2025-05-14 14:43] LABS: Calcium 11.4 mg/dL (8.4-10.2); Carbon Dioxide 24.0 mmol/L (22-30); Creatinine 1 0.89 mg/dL (0.52-1.04); EST GLOMERULAR FILTRATION RATE 62.7 ML/MIN; Glucose 148.0 mg/dL (74-106); Potassium 3.4 mmol/L (3.5-5.1); SGOT/AST 24.0 U/L (14-36); SGPT/ALT 12.0 U/L (0-35); Total Protein 7.7 g/dL (6.3-8.2)
--- NOTE | 2025-05-14 14:45 | ERPHSYRPT ---
- History of Present Illness Time Seen by Provider: 05/14/25 14:00 Source: patient, family Exam Limitations: no limitations Patient Subjective Stated Complaint: Pt. has dementia and does not answer appropriately. EMS states, "residential staff reported that pt. had had abdominal distention worsening over the past 24 hours. Very small stool this morning." Triage Nursing Assessment: Pt. arrives via EMS on stretcher, she is alert but confused per her normal. Skin P/W/D, Resp even unlabored. Abdomen very distended and firm, bowel sounds hypoactive in all 4 quads. Mucous Membranes very dry, lips dry and cracked. Physician History: Patient is here with abdominal distention. Started approximately 24 hours ago. Patient has dementia, Parkinson's. She is in 09/02 care at a [facility]. She is oriented to person and place. She cannot give me any history about her abdomen. But she does state that it hurts. Per the [facility] staff she has no vomiting, no falls, no trauma. Here she has no fever or tachycardia. As I walk in the room she does have obvious distention. She does not appear acutely ill. Allergies/Adverse Reactions: No Known Drug Allergies Allergy (Verified 04/13/23 04:03) Home Medications: Acetaminophen 325 mg [Tylenol 325 mg] 650 mg PO Q6H PRN PRN 05/14/25 [History] Bisacodyl 10 mg [Dulcolax 10 MG SUPP] 10 mg ME DAILY PRN PRN 05/14/25 [History] Carbidopa/Levodopa [Carbidopa-Levodopa 25-100 Tab] 1 each PO TID 05/14/25 [History] Diphenhydramine HCl [Hdnsf-H-Zjwc] 25 mg PO Q6HPRN PRN 05/14/25 [History] Docusate Sodium 50 mg PO BID 05/14/25 [History] Ferrous Sulfate 325 mg [Feosol 325 mg] 325 mg PO DAILY 05/14/25 [History] Gabapentin 100 mg PO HS 05/14/25 [History] Hydrocodone/Acetaminophen [Hydrocodone-Acetamin 7.5-325] 7.5 mg PO TID 05/14/25 [History] Hyoscyamine Sulfate [Levsin-Sl] 0.125 mg SL Q4HPRN PRN 05/14/25 [History] Isosorbide Mononitrate 30 mg [Imdur 30 MG] 30 mg PO DAILY 05/14/25 [History] LORazepam [Ativan] 0.5 mg PO HS 05/14/25 [History] LORazepam [Lorazepam Intensol] 0.5 mg PO Q4HPRN PRN 05/14/25 [History] Magnesium Hydroxide 30 ml [Milk of Magnesia 30 ml] 30 ml PO DAILY PRN PRN 05/14/25 [History] Morphine Sulfate 0.5 mg PO Q4H PRN PRN 05/14/25 [History] Polyethylene Glycol 3350 [Miralax] 17 gm PO DAILY 05/14/25 [History] Sodium Phosphate,[place]-Dibasic [Enema Ready To Use] 133 ml RC DAILY PRN PRN 05/14/25 [History] risperiDONE [Risperdal] 0.25 mg PO HS 05/14/25 [History] Hx Tetanus, Diphtheria Vaccination/Date Given: Yes Hx Influenza Vaccination/Date Given: Yes Hx Pneumococcal Vaccination/Date Given: Yes Immunizations Up to Date: No Travel Risk - International Travel Have you traveled outside of the country in past 3 weeks: No - Emerging Infectious Disease Are you exhibiting symptoms associated with any current EIDs: No - Review of Systems All Other Systems: Unable due to dementia - Past Medical History Pertinent Past Medical History: Yes Neurological History: Other ENT History: Other Cardiac History: No Pertinent History Respiratory History: No Pertinent History Endocrine Medical History: No Pertinent History Musculoskeletal History: Degenerative Disk Disease GI Medical History: No Pertinent History History: No Pertinent History Psycho-Social History: No Pertinent History Female Reproductive Disorders: No Pertinent History Other Medical History: heart murmur,bleeding behind the left eye years ago, PARKINSONS - Past Surgical History Past Surgical History: Yes Neuro Surgical History: No Pertinent History Cardiac: Pacemaker Respiratory: No Pertinent History Gastrointestinal: Appendectomy Genitourinary: No Pertinent History Musculoskeletal: No Pertinent History Female Surgical History: Hysterectomy - Social History Smoking Status: Never smoker Exposure to second hand smoke: No Drug Use: none - Social Determinants of Health Will the patient participate in the screening: Declined to provide - Nursing Vital Signs Nursing Vital Signs: Initial Vital Signs Temperature 98.3 F 05/14/25 13:58 Pulse Rate 103 H 05/14/25 13:58 Respiratory Rate 20 05/14/25 13:58 Blood Pressure 159/76 05/14/25 13:58 O2 Sat by Pulse Oximetry 98 05/14/25 13:58 Pain Scale Pain Intensity 0 - Physical Exam SpO2: 98 Comments: 05/14/25 14:43 Physical Exam Vitals signs and nursing note reviewed. Constitutional: Appearance: Patient is well-developed. HENT: Head: Normocephalic and atraumatic. Eyes: Conjunctiva/sclera: Conjunctivae normal. Neck: Trachea: No tracheal deviation. Cardiovascular: Rate and Rhythm: Normal rate. Pulmonary: Effort: Pulmonary effort is normal. No respiratory distress. Abdominal: Palpations: Abdomen is distended, tense, tender, some distal bowel sounds present Musculoskeletal: General: No deformity. Skin: General: Skin is warm and dry. Neurological: Mental Status: Patient is alert and oriented to person. Behavior is normal, moving all 4 extremities - Course Nursing assessment & vital signs reviewed: Yes Ordered Tests: Active Orders 24 hr Category Date Time Status EKG-ER Only STAT Care 05/14/25 14:00 Active IV Insertion STAT Care 05/14/25 14:00 Active NPO (ED) STAT Care 05/14/25 14:00 Active ABDOMEN AND PELVIS W CONTRAST [CT] Stat Exams 05/14/25 15:37 Completed CHEST WITH CONTRAST [CT] Stat Exams 05/14/25 15:37 Completed BLOOD CULTURE Stat Lab 05/14/25 14:22 Received CBC W DIFF Stat Lab 05/14/25 14:10 Completed CMP Stat Lab 05/14/25 14:10 Completed CULTURE,URINE Stat Lab 05/14/25 14:01 Received LIPASE Stat Lab 05/14/25 14:10 Completed Lactic Acid Stat Lab 05/14/25 14:00 Completed Lactic Acid Stat Lab 05/14/25 16:15 Stop Req PROCALCITONIN Stat Lab 05/14/25 14:10 Completed UA W/RFX UR CULTURE Stat Lab 05/14/25 14:01 Completed Urine Triage Profile Stat Lab 05/14/25 14:01 Completed Medication Summary Discontinued Medications Generic Name Dose Route Start Last Admin Trade Name Freq PRN Reason Stop Dose Admin Piperacillin Sod/Tazobactam 100 mls @ 200 mls/hr 05/14/25 14:44 05/14/25 15:46 Sod 3.375 gm/ Sodium Chloride IV 05/14/25 15:13 Infused STAT STA Infusion Sodium Chloride Confirm 05/14/25 15:07 Sodium Chloride 0.9% Administered 05/14/25 15:08 Dose 100 mls @ ud .ROUTE .STK-MED ONE Ondansetron HCl 4 mg 05/14/25 14:00 05/14/25 15:09 Ondansetron Hcl 4 Mg/2 Ml Vial IV 05/14/25 14:01 4 mg STAT ONE Administration Ondansetron HCl Confirm 05/14/25 15:07 Ondansetron Hcl 4 Mg/2 Ml Vial Administered 05/14/25 15:08 Dose 4 mg .ROUTE .STK-MED ONE Piperacillin Sod/Tazobactam Sod Confirm 05/14/25 15:07 Piperacillin/Tazobactam Sodium 3.375 Gm Vial Administered 05/14/25 15:08 Dose 3.375 gm IV .STK-MED ONE Lab/Rad Data: Laboratory Result Diagrams 05/14/25 14:10 05/14/25 14:10 Laboratory Results 05/14/25 05/14/25 05/14/25 Range/Units 14:10 14:10 14:10 WBC 12.2 H (3.98-10.04) x10^3/uL RBC 4.79 (3.93-5.22) x10^6/uL Hgb 12.9 (11.2-15.7) g/dL Hct 41.7 (34.1-44.9) % MCV 87.1 (79.4-94.8) fL MCH 26.9 (25.6-32.2) pg MCHC 30.9 L (32.2-35.5) g/dL RDW 13.5 (11.7-14.4) % Plt Count 276 (182-369) x10^3/uL MPV 9.2 L (9.4-12.3) fL Gran % 89.4 H (34.0-71.1) % Immature Gran % (Auto) 0.7 H (0.001-0.429) % Nucleat RBC Rel Count 0.0 (0.00-0.2) % Eos # (Auto) 0 L (0.04-0.36) x10^3/uL Immature Gran # (Auto) 0.09 H (0.001-0.031) x10^3u/L Absolute Lymphs (auto) 0.44 L (1.18-3.74) x10^3/uL Absolute Monos (auto) 0.74 (0.24-0.86) x10^3/uL Absolute Nucleated RBC 0.00 (0.00-0.012) x10^3u/L Lymphocytes % 3.6 L (19.3-51.7) % Monocytes % 6.1 (4.7-12.5) % Eosinophils % 0.0 L (0.7-5.8) % Basophils % 0.2 (0.1-1.2) % Absolute Granulocytes 10.93 H (1.56-6.13) x10^3/uL Basophils # 0.02 (0.01-0.08) x10^3/uL Sodium 143 (135-145) mmol/L Potassium 3.4 L (3.5-5.1) mmol/L Chloride 104 (98-107) mmol/L Carbon Dioxide 24 (22-30) mmol/L Anion Gap 18.0 H (5-15) MEQ/L BUN 45 H (7-17) mg/dL Creatinine 0.89 (0.52-1.04) mg/dL Estimated GFR 62.7 ML/MIN Glucose 148 H (74-106) mg/dL Lactic Acid (0.4-2.0) Calcium 11.4 H (8.4-10.2) mg/dL Total Bilirubin 1.20 (0.2-1.3) mg/dL AST 24 (14-36) U/L ALT 12 (0-35) U/L Alkaline Phosphatase 121 (38-126) U/L Serum Total Protein 7.7 (6.3-8.2) g/dL Albumin 4.1 (3.5-5.0) g/dL Lipase 2065 H (23-300) U/L Procalcitonin 0.251 H (0.030-0.080) ng/mL Urine Color (Yellow) Urine Appearance (Clear) Urine pH (4.6-8.0) Ur Specific [place] (1.005-1.030) Urine Protein (Negative) Urine Glucose (UA) (Negative) mg/dL Urine Ketones (Negative) Urine Blood (Negative) Urine Nitrite (Negative) Urine Bilirubin (Negative) Urine Urobilinogen (0.2) mg/dL Ur Leukocyte Esterase (Negative) U Hyaline Cast (Auto) (0-2) /LPF Urine Microscopic RBC (0-5) /HPF Urine Microscopic WBC (0-5) /HPF Ur Epithelial Cells (None Seen) /HPF Urine Bacteria (None Seen) /HPF Urine Culture Reflexed (NO) Urine Opiates Level (NEGATIVE) Ur Methadone (NEGATIVE) Urine Barbiturates (NEGATIVE) Ur Phencyclidine (PCP) (NEGATIVE) Urine Amphetamine (NEGATIVE) U Benzodiazepine Level (NEGATIVE) Urine Cocaine (NEGATIVE) Urine Marijuana (THC) (NEGATIVE) Slides for Path Review YES 05/14/25 05/14/25 05/14/25 Range/Units 14:01 14:01 14:00 WBC (3.98-10.04) x10^3/uL RBC (3.93-5.22) x10^6/uL Hgb (11.2-15.7) g/dL Hct (34.1-44.9) % MCV (79.4-94.8) fL MCH (25.6-32.2) pg MCHC (32.2-35.5) g/dL RDW (11.7-14.4) % Plt Count (182-369) x10^3/uL MPV (9.4-12.3) fL Gran % (34.0-71.1) % Immature Gran % (Auto) (0.001-0.429) % Nucleat RBC Rel Count (0.00-0.2) % Eos # (Auto) (0.04-0.36) x10^3/uL Immature Gran # (Auto) (0.001-0.031) x10^3u/L Absolute Lymphs (auto) (1.18-3.74) x10^3/uL Absolute Monos (auto) (0.24-0.86) x10^3/uL Absolute Nucleated RBC (0.00-0.012) x10^3u/L Lymphocytes % (19.3-51.7) % Monocytes % (4.7-12.5) % Eosinophils % (0.7-5.8) % Basophils % (0.1-1.2) % Absolute Granulocytes (1.56-6.13) x10^3/uL Basophils # (0.01-0.08) x10^3/uL Sodium (135-145) mmol/L Potassium (3.5-5.1) mmol/L Chloride (98-107) mmol/L Carbon Dioxide (22-30) mmol/L Anion Gap (5-15) MEQ/L BUN (7-17) mg/dL Creatinine (0.52-1.04) mg/dL Estimated GFR ML/MIN Glucose (74-106) mg/dL Lactic Acid 2.2 H (0.4-2.0) Calcium (8.4-10.2) mg/dL Total Bilirubin (0.2-1.3) mg/dL AST (14-36) U/L ALT (0-35) U/L Alkaline Phosphatase (38-126) U/L Serum Total Protein (6.3-8.2) g/dL Albumin (3.5-5.0) g/dL Lipase (23-300) U/L Procalcitonin (0.030-0.080) ng/mL Urine Color Dark Yellow A (Yellow) Urine Appearance Clear (Clear) Urine pH 5.5 (4.6-8.0) Ur Specific [place] 1.025 (1.005-1.030) Urine Protein 30 (Negative) Urine Glucose (UA) Negative (Negative) mg/dL Urine Ketones 40 A (Negative) Urine Blood Negative (Negative) Urine Nitrite Negative (Negative) Urine Bilirubin Moderate A (Negative) Urine Urobilinogen 1.0 A (0.2) mg/dL Ur Leukocyte Esterase Trace A (Negative) U Hyaline Cast (Auto) 6-10 A (0-2) /LPF Urine Microscopic RBC 3-5 (0-5) /HPF Urine Microscopic WBC 3-5 (0-5) /HPF Ur Epithelial Cells None Seen (None Seen) /HPF Urine Bacteria None Seen (None Seen) /HPF Urine Culture Reflexed ORDERED SEPARATELY (NO) Urine Opiates Level POSITIVE A (NEGATIVE) Ur Methadone NEGATIVE (NEGATIVE) Urine Barbiturates NEGATIVE (NEGATIVE) Ur Phencyclidine (PCP) NEGATIVE (NEGATIVE) Urine Amphetamine NEGATIVE (NEGATIVE) U Benzodiazepine Level NEGATIVE (NEGATIVE) Urine Cocaine NEGATIVE (NEGATIVE) Urine Marijuana (THC) NEGATIVE (NEGATIVE) Slides for Path Review - Progress Progress: improved Progress Note: 05/14/25 14:44 Differential diagnosis includes kidney stone, compression fracture, infection, UTI, triple AAA - basic labs including: CBC, lipase, CMP, UA, place a Hillman catheter - insert IV for symptom management - consider imaging: CT ab/pelvis or U/S, CT scan of chest 05/14/25 17:46 I did review all radiology images. See radiologist official read for full details. I did discuss results and all incidental findings with patient/family. They state their understanding and need for appropriate follow-up. Patient found to have pericardial effusion, acute pancreatitis, new pulmonary embolism, stercoral colitis, large bowel obstruction, leukocytosis, lactic acidosis. As above these are several very end-of-life diagnoses. Patient is a 85-year-old female that has dementia, Parkinson's disease, is currently on hospice. I had a long discussion with the family about goals of care. Ultimately after explaining the risks and benefits of treatment and prior goals of hospice, we made decision to discharge patient home on comfort measures only. The family stated that this was the expected outcome and they just wanted to know what was causing the abdominal distention. They already have end-of-life care set up, hospice nurses, and other medication ready. Given all of this, we will work on discharging patient back to [facility] only. Counseled pt/family regarding: lab results, diagnosis, need for follow-up, rad results - Departure Departure Disposition: Extended Care Facility Clinical Impression: Pancreatitis, Pulmonary embolus, Stercoral colitis, Large bowel obstruction, Leukocytosis, Lactic acidosis, Altered mental status, Pericardial effusion Condition: Stable Critical Care Time: No Referrals: [facility] [Primary Care Provider, UNKNOWN] - Follow up/PCP as directed Instructions: Abdominal pain, Severe Abdominal Pain, Adult (DC)
[2025-05-14 14:46] LABS: Amphetamine,Urine NEGATIVE (NEGATIVE); Barbiturate,Urine NEGATIVE (NEGATIVE); Benzodiazepine,Urine NEGATIVE (NEGATIVE); Cocaine,Urine NEGATIVE (NEGATIVE); Methadone,Urine NEGATIVE (NEGATIVE); Opiate,Urine POSITIVE (NEGATIVE); PCP,Urine NEGATIVE (NEGATIVE); THC,Urine NEGATIVE (NEGATIVE)
[2025-05-14 15:03] LABS: Slide Review 1 YES
[2025-05-14] MEDS ORDERED: Zofran 4 MG/2 ML VIAL ONE (15:07)
[2025-05-14] MEDS ORDERED: PIPERACILLIN/TAZOBACTAM IV ONE (15:07)
[2025-05-14] MEDS: Zofran 4 MG/2 ML VIAL IV ONE (15:09)
--- NOTE | 2025-05-14 16:52 | XRAY ---
CLINICAL HISTORY: chest pain, PE COMPARISON: No prior studies are available for comparison. TECHNIQUE: CT angiography of the chest was performed with intravenous contrast using the following protocol: Axial images were obtained, with reconstructed coronal and sagittal images. Intravenous contrast [80cc of isovue 370] was administered using automated injection techniques. Bolus tracking was employed to optimize arterial phase imaging. One of the following 3D techniques was utilized: Maximum Intensity Pixel (MIP), 3D Reconstructed Images, Volume Rendered Images, or Surface Shaded Rendering. One of the following dose reduction techniques was utilized for this exam: automated exposure control, adjustment of the mA and/or kV according to patient size, and use of iterative reconstruction. DLP: 1672 mGy-cm, CTDI: 43 mGy. FINDINGS: Aorta and Great Vessels: Ascending aorta: Normal in caliber; no aneurysm, dissection, or significant atherosclerosis. Aortic arch: Normal in caliber; no aneurysm, dissection, or significant atherosclerosis. 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 Descending aorta: Normal in caliber; no aneurysm, dissection, or significant atherosclerosis. Pulmonary arteries: There is a filling defect involving the right main pulmonary artery, extending to the upper lobe branch, with a few small thrombi at the segmental branches of the right lower lobe branch as well. Heart: Cardiac chambers: Normal in size. No evidence of cardiomegaly. Pericardium: Mild pericardial effusion. Pacemaker leads are noted in situ. Lungs and Pleura: A few thin atelectatic bands are noted in the left lower lung lobe. Otherwise, the lungs are clear without evidence of consolidation, collapse, or focal lesions. No pleural effusion or pleural thickening. Mediastinum: No mediastinal mass or abnormal lymphadenopathy. Normal appearance of the trachea and central bronchi. Moderate sliding hiatal hernia. Hilar Structures: Hilar structures are normal without enlargement. Chest Wall: No mass lesions or abnormalities in the chest wall. Vascular Structures: Superior vena cava: Patent without evidence of stenosis or thrombus. Inferior vena cava: Patent without evidence of stenosis or thrombus. Bones and Soft Tissues: No fractures, lytic, or blastic lesions of the visualized bony structures. Reduced osseous mineralization and degenerative changes of the thoracic spine are noted. Soft tissues are unremarkable. Scanned upper abdominal cuts show distended colonic bowel loops. IMPRESSION: 1. Pulmonary embolism seen at the right main pulmonary artery, extending to the lobar and segmental branches. 2. Mild pericardial effusion. 3. 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 4. Moderate sliding hiatal hernia. 5. Scanned upper abdominal cuts show distended colonic bowel loops. Advised clinical correlation and dedicated study if clinically indicated. 6. Other findings as detailed above. Electronically Signed by: Cassius Fernandez MD. (05/14/2025 16:52:18 EDT)
--- NOTE | 2025-05-14 17:26 | XRAY ---
CLINICAL HISTORY: Abdominal distention COMPARISON: Comparison is made with 05/20/2022. TECHNIQUE: CT of the abdomen and pelvis was performed with IV contrast (80cc of isovue 370), with the following protocol: axial images were obtained and reconstructed coronal and sagittal images. One of the following dose reduction techniques was utilized for this exam: automated exposure control, adjustment of the mA and/or kV according to patient size, and use of iterative reconstruction. DLP: 1672 mGy-cm, CTDI: 43 mGy. FINDINGS: Abdomen: Liver: The liver is normal in size, shape, and density. No focal lesions, cysts, or masses are identified. A 4 x 1.5 cm perihepatic fluid collection is noted anterior to subsegment [place]. The hepatic vasculature and biliary ducts are unremarkable. Gallbladder and Biliary System: The gallbladder is not visualized. The common bile duct is normal in caliber without dilation. Pancreas: The pancreatic head, body, and tail are visualized and appear normal in size and density. No pancreatic masses or calcifications are noted. The pancreatic duct is not dilated. Spleen: The spleen is normal in size, shape, and density. No splenic lesions or masses are identified. Appendix: The appendix is not visualized; however, there are no signs of acute appendicitis. Kidneys and Adrenal Glands: Both kidneys are normal in size, shape, and position. Cortical thickness is within normal limits. Bilateral renal simple cortical cysts are noted. No renal calculi or hydronephrosis are seen in the left kidney. The right kidney shows mild back pressure changes without stones. The right ureter is also mildly dilated. The adrenal glands are unremarkable with no evidence of masses or hyperplasia. Pelvis: Urinary Bladder: The urinary bladder is empty with a Hillman catheter inside. It is displaced anteriorly by the rectum. No intraluminal lesions are identified. Uterus: The uterus is not visualized. Ovaries: The ovaries are not well visualized, but no gross abnormalities are noted. Peritoneal and Retroperitoneal Structures: No free ascites is present. No lymphadenopathy is noted. Bowel: An axial hiatus hernia is noted. The small bowel appears unremarkable. There is marked distention of the rectum, with a maximum caliber of 12 cm, and rectosigmoid filled with impacted fecal matter with minimal related wall thickening and presacral minimal fluid with fat stranding. The rest of the colon is also dilated. Bones and Soft Tissues: There is reduced osseous mineralization. Degenerative changes are present in the lumbar spine and both hip joints. Bilateral CESAR is noted. No fractures or abnormal masses are identified. Atherosclerotic calcification of the aorta and its branches is present. IMPRESSION: 1. Rectosigmoid fecal impaction with possible stercoral colitis and subsequent large bowel obstruction. This has progressed since the last study. The small bowels are of normal caliber. Clinical correlation is advised. 2. Perihepatic localized fluid collection. Advised US if clinically indicated. 3. Mild right hydronephrosis and hydroureter, likely secondary to distal ureteric compression by the distended rectum. 4. Other findings as detailed above. Electronically Signed by: Cassius Fernandez MD. (05/14/2025 17:25:41 EDT)
[2025-05-14 18:13] VITALS: BP 138/68; PULSE 92; RESP 19; O2SAT 100
== END 2025-05-14 18:10 | disposition home or self-care (01) ==
LOC: ED 13:58
DX: K85.90 Acute pancreatitis without necrosis or infection, unspecified (principal); I26.99 Other pulmonary embolism without acute cor pulmonale; K52.89 Other specified noninfective gastroenteritis and colitis; K56.609 Unspecified intestinal obstruction, unspecified as to partial versus complete obstruction; D72.829 Elevated white blood cell count, unspecified; E87.20 Acidosis, unspecified; R41.82 Altered mental status, unspecified; I31.39 Other pericardial effusion (noninflammatory); Z79.899 Other long term (current) drug therapy